=== PATIENT | female | born 1995 | race African-American/Black ===

== ENCOUNTER 2018-09-25 11:41 | Inpatient (IN) | payer OTHER ==
[~2018-09-25] VITALS: Ht 165.1 cm; Wt 63.5 kg
[~2018-09-25 11:41] MED LIST: ALPR0.5T2 PO; DOCU-299 PO; GABA300C PO; HYDR200T5 PO; HYDR2TAB6 PO; LABE300T5 PO; LACT10CA1 PO; LOV40I SUBQ; NITR100C7 PO; PRED20TA5 PO; VANC125C11 PO
--- NOTE | 2018-09-25 11:41 | NUR ---
PT FAUSTO PENG, CURRENTLY AWAITING BED
--- NOTE | 2018-09-25 11:45 | NUR ---
PT TAKEN TO BED 9 BY EMS CREW
[2018-09-25 11:54] VITALS: BP 144/95
[2018-09-25] MEDS ORDERED: NACL 0.9% 1,000 ML IV SCH ×2 (12:23→18:35)
[2018-09-25] MEDS ORDERED: fentaNYL 0.05 MG/ML VIAL IVP ONE (12:25)
--- NOTE | 2018-09-25 13:04 | NUR ---
PT BIBA FOR ABD PAIN AND GENERALIZED JOINT PAIN. PT HX OF FIBROMYALGIA, SICKLE CELL, LUPUS. PT STATES SHE HAS NOT BEEN EATING OF DRINKING BECAUSE OF THE PAIN. PAIN 10/10, GENERALIZED. VSS; PATIENT POSITIONED FOR COMFORT; HOB ELEVATED; BEDRAILS UP X1; BED DOWN. ER MD MADE AWARE OF PT STATUS.
[2018-09-25] MEDS ORDERED: HYDROmorphone PFS 2 MG/ML SYR IVP ONE ×2 (13:20→14:40)
[2018-09-25 13:50] VITALS: BP 127/80
--- NOTE | 2018-09-25 13:50 | NUR ---
RECEIVED REPORT FROM ER NURSE. PT IS ALERTED AND ORIENTED X4. NO SIGNS OF DISTRESS NOTED. DENIED PAIN AT THIS MOMENT. C/O COLD. WARM BLANKETS PROVIDED.RESPIRATION IS EVEN AND UNLABORED. IV IS ON L FOOT 24G INFUSING PER MD ORDER. IV SITE IS CLEAN AND DRY. ABLE TO AMBULATE WITH STEADY GAIT. VITAL SIGN TAKEN AND COLLECTED MRSA NARES SWAP.ORIENTED PT TO THE ROOM, HOW TO USE THE CALL LIGHT FOR ASSISTANCE, TV, BED, BATHROOM AND LIGHT. DISCUSSED PLAN OF CARE WITH PT, PT VERBALIZED UNDERSTANDING. SAFETY MEASURES IN PLACE. BED IN LOW POSITION, CALL LIGHT WITHIN REACH.
--- NOTE | 2018-09-25 14:00 | NUR ---
PT DECLINING XRAY AND LABS; TOO MUCH PAIN
[2018-09-25 14:11] LABS: BILIRUBIN,URINE NEGATIVE (NEGATIVE); BLOOD, URINE TRACE-I (NEGATIVE); COLOR,URINE YELLOW (YELLOW); LEUKOCYTE ESTERASE ,URINE TRACE (NEGATIVE); NITRITE, URINE NEGATIVE (NEGATIVE); PH,URINE 6.5 (5.0-9.0); UGLUCOSE NEGATIVE (NEGATIVE)
[2018-09-25 14:12] LABS: APPEARANCE,URINE SLIGHTLY CLOUDY (CLEAR)
[2018-09-25 14:12] LABS: BASOPHILS % (AUTO) 1.3 % (0.0-2.0); EOSINOPHILS % (AUTO) 0.1 % (0.0-4.0); HEMATOCRIT 29.9 % (36-48); HEMOGLOBIN 9.6 g/dL (12.0-16.0); LYMPHOCYTES # (AUTO) 0.8 K/uL (2.5-16.5); LYMPHOCYTES % (AUTO) 21.7 % (20.5-51.1); MEAN CORPUSCULAR HEMOGLOBIN 22 pg (27-31); MEAN CORPUSCULAR HGB CONC 32 g/dL (33-37); MEAN CORPUSCULAR VOLUME 69.5 fL (80-94); MONOCYTES # (AUTO) 0.5 K/uL (0.8-1.0); MONOCYTES % (AUTO) 13.7 % (1.7-9.3); NEUTROPHILS # (AUTO) 2.2 K/uL (1.8-7.7); NEUTROPHILS % (AUTO) 63.2 % (42.2-75.2); PLATELET COUNT (AUTO) 361 K/uL (140-450); RED CELL DISTRIBUTION WIDTH 19.8 % (11.6-13.7); WHITE BLOOD COUNT (AUTO) 3.5 K/uL (4.8-10.8)
[2018-09-25] MEDS ORDERED: LEVOFLOXACIN 500 MG/D5W PREMIX 100 ML IV ONE (14:15)
[2018-09-25] MEDS ORDERED: PIPERACILLIN/TAZOBACTAM 3.375 GM in DEXTROSE 5% 50 ML IV ONE (14:15)
[2018-09-25 14:19] LABS: ANION GAP 15.4 (8-16); CARBON DIOXIDE 23.9 mmol/L (21-32); CREATININE 0.6 mg/dL (0.6-1.3); POTASSIUM 3.3 mmol/L (3.5-5.1)
[2018-09-25 14:22] LABS: RBC,URINE 3-10 (FEW) /HPF (0-5); WBC,URINE 6-15 (FEW) /HPF (0-5)
[2018-09-25 14:24] LABS: PROTHROMBIN TIME 10.4 secs (10.8-13.4)
[2018-09-25 14:25] LABS: ALBUMIN 3.1 g/dL (3.4-5.0); TOTAL BILIRUBIN 0.1 mg/dL (0.0-1.0)
[2018-09-25] MEDS ORDERED: PIPERACILLIN/TAZOBACTAM 3.375 GM VIAL IV ONE (14:37)
[2018-09-25] MEDS ORDERED: ONDANSETRON 4 MG/2 ML VIAL IM/IVP PRN (15:05)
[2018-09-25] MEDS ORDERED: DOCUSATE SODIUM 100 MG GELCAP PO PRN (15:05)
[2018-09-25] MEDS ORDERED: HYDROcodone/APAP 7.5/325 MG 1 TAB PO PRN (15:05)
[2018-09-25] MEDS ORDERED: ACETAMINOPHEN 325 MG TAB PO PRN (15:05)
--- NOTE | 2018-09-25 15:41 | NUR ---
PT TAKEN TO TELE OBS FLOOR BY RN JOSE AND EMT MABEL
--- NOTE | 2018-09-25 15:45 | NUR ---
Patient will be admitted to care of DR. BOGGS. Admited to TELE. Will go to room 125B. Belongings list completed. Report to ONELIA SANDHU.
[2018-09-25 16:12] LABS: BARBITURATE, URINE NEG. ng/ml (NEG <=200); BENZODIAZEPINE, URINE NEG. ng/mL (NEG <=200); CANNABINOID, URINE POS. ng/mL (NEG <=50); COCAINE, URINE NEG. ng/mL (NEG <=300); OPIATE, URINE POS. ng/mL (NEG <=2000); PHENCYCLIDINE SCREEN,URINE NEG. ng/mL (NEG <=25)
[2018-09-25 16:15] LABS: CHOL/HDL RATIO 5.2 (1-4.5); FREE T4 (FREE THYROXINE) 0.94 ng/dL (0.76-1.46); MAGNESIUM 1.9 mg/dL (1.8-2.4); PHOSPHORUS 4.2 mg/dL (2.5-4.9); THYROID STIMULATING HORMONE 3.44 uIU/mL (0.34-3.74)
[2018-09-25] MEDS ORDERED: ALPR0.5T2 PO (16:36)
[2018-09-25] MEDS ORDERED: GABA300C PO (16:39)
[2018-09-25] MEDS ORDERED: DOCU-299 PO (16:39)
[2018-09-25] MEDS ORDERED: LOV40I SUBQ (16:39)
[2018-09-25] MEDS ORDERED: HYDR2TAB6 PO (16:40)
[2018-09-25] MEDS ORDERED: LABE300T5 PO (16:42)
[2018-09-25] MEDS ORDERED: PRED20TA5 PO (16:43)
[2018-09-25] MEDS: NACL 0.9% 1,000 ML IV SCH (17:05)
[2018-09-25] MEDS ORDERED: ALPRAZolam 0.5 MG TAB PO SCH (17:10)
--- NOTE | 2018-09-25 17:25 | NUR ---
IV ON L FOOT INFILTRATED. D/C IV, IV CANNULA INTACT AND COMPLETED, MINIMAL BLEEDING AT IV SITE. TAPED WITH DRY GAUZE. RESTARTED A NEW IV ON R BREAST 24G. IV IS PATENT AND ASYMPTOMATIC, INFUSING PER MD ORDER. PT TOLERATED WELL.
[2018-09-25] MEDS ORDERED: HYDR200T5 PO (17:41)
[2018-09-25] MEDS ORDERED: HYDROmorphone PFS 2 MG/ML SYR IVP PRN (17:50)
[2018-09-25] MEDS ORDERED: KCL 20 MEQ/WATER INJ PREMIX 100 ML IV SCH (18:30)
--- NOTE | 2018-09-25 19:08 | NUR ---
ADMINISTERED 1000ML NS BOLUS PER MD ORDER.
--- NOTE | 2018-09-25 19:30 | NUR ---
BEDSIDE REPORT GIVEN TO SHIP CAPTAIN NURSE FOR CONTINUITY OF CARE. PT IS IN STABLE CONDITION.
--- NOTE | 2018-09-25 19:31 | NUR ---
REPORT RECEIVED FROM AM NURSE AT BEDSIDE. PT IN STABLE CONDITION. AAOX4. INTRODUCED SELF TO PT. BOARD UPDATED. NO COMPLAINTS OF PAIN DUE TO ALREADY BEING MEDICATED. NO SOB. AFEBRILE. IV SITE R BREAST 24G RUNNING NS@150ML/HR PATENT AND INTACT. SKIN WARM, DRY, AND INTACT WITH NO OPEN WOUNDS. BED LOCKED IN LOW POSITION. CALL HAN WITHIN REACH. SAFETY PRECAUTIONS IN PLACE. ALL NEEDS MET AT THIS TIME.
[2018-09-25] MEDS: HYDROmorphone PFS 2 MG/ML SYR IVP PRN ×2 (19:39→23:32)
[2018-09-25 20:00] VITALS: BP 119/69
[2018-09-25] MEDS ORDERED: methylPREDNISolone SS 125 MG/2 ML VIAL IVP SCH (20:00)
--- NOTE | 2018-09-25 20:20 | NUR ---
PT COMPLAINS HER SEROQUEL IS NOT BEING GIVEN. SHE SAID SHE NORMALLY TAKES SEROQUEL WITH DILAUDID AND XANAX TOGETHER. NOTIFIED. ORDERS THAT DILAUDID AND XANAX CANNOT BE GIVEN TOGETHER. DILAUDID CAN BE GIVEN WITH SEROQUEL.
[2018-09-25] MEDS ORDERED: cefTRIAXone 1,000 MG VIAL ONE (20:32)
[2018-09-25] MEDS: METOPROLOL 25 MG TAB PO SCH (20:37)
--- NOTE | 2018-09-25 20:37 | NUR ---
LOPRESSOR GIVEN PO. SOLUMEDROL GIVEN IVP. ROCEPHIN GIVEN IVPB. PT TOLERATED WELL. Addendum: 09/26/18 at 0251 by Fernando Franco RN SEROQUEL WAS OPENED AND ATTEMPTED TO GIVEN TO PT. SHE SAID SHE WILL WAIT UNTIL DILAUDID IS DUE AGAIN THEN SHE WILL TAKE SEROQUEL. WILL HOLD SEROQUEL UNTIL 2329 WHEN DILAUDID IS DUE.
[2018-09-25] MEDS: QUEtiapine FUMARATE 100 MG TAB PO SCH ×2 (20:38→23:32)
--- NOTE | 2018-09-25 21:16 | NUR ---
XANAX GIVEN PO. PT TOLERATED WELL. Addendum: 09/26/18 at 0247 by Fernando Franco RN POTASSIUM GIVEN AT 2116. NOT XANAX CANDELARIA-ONELIA.
--- NOTE | 2018-09-25 21:16 | NUR ---
POTASSIUM DUE AT 183. OTHER IV STILL INFUSING. POTASSIUM LEVEL 3.3. POTASSIUM HUNG AT 2115. PT TOLERATING WELL.
[2018-09-25] MEDS: ALPRAZolam 0.5 MG TAB PO PRN (22:20)
--- NOTE | 2018-09-25 22:20 | NUR ---
XANAX GIVEN PO. PT TOLERATED WELL.
--- NOTE | 2018-09-25 23:32 | NUR ---
DILAUDID GIVEN IVP. SEROQUEL GIVEN PO. PT TOLERATED WELL.
[2018-09-26] VITALS: BP 136/93
--- NOTE | 2018-09-26 01:30 | NUR ---
PT COMPLAINS OF ITCHINESS. MD NOTIFIED. ORDERED BENADRYL PO.
--- NOTE | 2018-09-26 01:35 | NUR ---
PT COMPLAINS THAT BENADRYL PO DOES NOT WORK. WANTS BENADRYL IV. MD NOTIFIED. IN TO SPEAK WITH PATIENT.
--- NOTE | 2018-09-26 01:50 | NUR ---
ORDERED TARUN COLBY.
--- NOTE | 2018-09-26 01:54 | NUR ---
BENADRYL GIVEN IVP ONCE. PT TOLERATED WELL.
[2018-09-26] MEDS ORDERED: methylPREDNISolone SS 125 MG/2 ML VIAL IVP SCH (02:00)
[2018-09-26] MEDS ORDERED: diphenhydrAMINE 50 MG/ML VIAL IVP SCH ×2 (02:00→08:20)
[2018-09-26] MEDS: NACL 0.9% 1,000 ML IV SCH ×4 (03:31→18:38)
[2018-09-26] MEDS: HYDROmorphone PFS 2 MG/ML SYR IVP PRN ×6 (03:32→21:26)
--- NOTE | 2018-09-26 03:32 | NUR ---
DILAUDID GIVEN FOR 10/10 PAIN. PT TOLERATED WELL.
[2018-09-26 04:00] VITALS: BP 151/99
[2018-09-26] MEDS: methylPREDNISolone SS 125 MG/2 ML VIAL IVP SCH ×2 (04:29→12:00)
--- NOTE | 2018-09-26 04:29 | NUR ---
SOLUMEDROL GIVEN IVP. PT TOLERATED WELL.
--- NOTE | 2018-09-26 05:30 | NUR ---
PT COMPLAINING ABOUT PAIN. DILAUDID GIVEN AT 0332. ASKED IF SHE COULD GET IT EARLIER. MD DENIED HER AT 0100 TO RECEIVE DILAUDID EARLIER THAN SCHEDULE.
--- NOTE | 2018-09-26 07:31 | NUR ---
REPORT GIVEN TO AM NURSE AT BEDSIDE. PT IN STABLE CONDITION.
--- NOTE | 2018-09-26 07:35 | NUR ---
RECEIVED PT FROM DISPATCHER RADIO NURSEALEXX, PT IS AWAKE AND SEATED ON THE BED WITH SIDE RAILS UP AND CALL LIGHT WITHIN REACH, PT VERBALIZED A PAIN RATE OF 9/10 AND WILL MEDICATE SOON DUE FOR PAIN MEDICATION. PT HAS AN IV FREDO ON THE RT BREAST G.24 WITH NS INFUSING AT 150ML/HR, INTACT. NO SOB NOTED AND WILL CONTINUE TO MONITOR PT.
[2018-09-26 08:00] VITALS: BP 158/110
--- NOTE | 2018-09-26 08:04 | NUR ---
PT IS AWAKE AND SEATED ON THE BED, PAIN MEDICATION GIVEN VIA IV PUSH AND PT TOLERATED IT, VITAL SIGNS CHECKED PER PARAMETERS. WILL MONITOR PT.
[2018-09-26 08:17] LABS: ANION GAP 9.7 (8-16); BASOPHILS % (AUTO) 0.3 % (0.0-2.0); CARBON DIOXIDE 22.6 mmol/L (21-32); CREATININE 0.5 mg/dL (0.6-1.3); HEMATOCRIT 29.3 % (36-48); HEMOGLOBIN 9.5 g/dL (12.0-16.0); LYMPHOCYTES # (AUTO) 0.3 K/uL (2.5-16.5); MEAN CORPUSCULAR HEMOGLOBIN 23 pg (27-31); MEAN CORPUSCULAR HGB CONC 32 g/dL (33-37); MONOCYTES # (AUTO) 0.1 K/uL (0.8-1.0); MONOCYTES % (AUTO) 2.5 % (1.7-9.3); NEUTROPHILS # (AUTO) 3.5 K/uL (1.8-7.7); PLATELET COUNT (AUTO) 364 K/uL (140-450); POTASSIUM 4.3 mmol/L (3.5-5.1); RED BLOOD CELL COUNT(AUTO) 4.19 MIL/uL (4.20-5.40); RED CELL DISTRIBUTION WIDTH 19.6 % (11.6-13.7); WHITE BLOOD COUNT (AUTO) 3.9 K/uL (4.8-10.8)
[2018-09-26] MEDS: predniSONE 20 MG TAB PO SCH (08:17)
[2018-09-26] MEDS: METOPROLOL 25 MG TAB PO SCH ×2 (08:18→20:43)
[2018-09-26] MEDS: GABAPENTIN 300 MG CAP PO SCH ×3 (08:18→16:34)
[2018-09-26] MEDS: HYDROXYCHLOROQUINE 200 MG TAB PO SCH (08:18)
[2018-09-26] MEDS: ENOXAPARIN 40 MG/0.4 ML SYR SUBQ SCH (08:20)
[2018-09-26 08:45] LABS: NEUTROPHILS % (AUTO) 89.6 % (42.2-75.2)
[2018-09-26 08:46] LABS: LYMPHOCYTES % (AUTO) 7.6 % (20.5-51.1)
--- NOTE | 2018-09-26 10:11 | NUR ---
PT IS AWAKE AND SEATED ON THE BED WATCHING TV, BENADRYL WAS GIVEN IV PUSH AND PT TOLERATED IT. NO SIGN OF DISTRESS NOTED AND WILL CONTINUE TO MONITOR PT.
[2018-09-26 12:00] VITALS: BP 157/117
--- NOTE | 2018-09-26 12:20 | NUR ---
PT IS AWAKE AND VITAL SIGN TAKEN AND BP IS 175/113, PULSE IS 96, O2 SATURATION IS 96% AND RESPIRATION IS 16/MIN. DR. YOO WAS INFORMED OF THE BP RESULT AND MD SAID TO RE-CHECK BP AFTER AN HOUR. PT WAS MEDICATED FOR THE PAIN RATE OF 9/10 AND PORAL AND IV MEDICATIONS WE5RE GIVEN AND PT TOLERATED IT. WILL CONTINUE TO MONITOR PT.
[2018-09-26] MEDS: ALPRAZolam 0.5 MG TAB PO PRN ×2 (14:05→20:43)
--- NOTE | 2018-09-26 14:07 | NUR ---
PT VERBALIZED A FEELING OF ANXIETY AND ASKED FOR A MEDICATION TO CALM HER DOWN, MEDICATION GIVEN TO PT AND PT TOLERATED IT. WILL CONTINUE TO MONITOR PT.
--- NOTE | 2018-09-26 15:45 | NUR ---
IV LINE WAS INFILTRATED AND A NEW IV LINE WAS STARTED ON RT FOOT G. 22.
[2018-09-26 16:00] VITALS: BP 159/120
--- NOTE | 2018-09-26 16:03 | NUR ---
PT VERBALIZED A PAIN RAT E OF 04/19 AND PAIN MEDICATION WAS GIVEN VIA IV PUSH AND PT TOLERATED IT, V/S CHECKED PRIOR TO MEDICATION ADMINISTRATION
--- NOTE | 2018-09-26 16:10 | NUR ---
X-RAY OF THE BILATERAL KNEES IS BEING DONE TO PT NOW.
--- NOTE | 2018-09-26 16:35 | NUR ---
PT IS AWAKE AND SEATED ON THE BED, AL MEDICATION GIVEN AND PT TOLERATED IT. WILL MONITOR PT.
[2018-09-26] MEDS ORDERED: methylPREDNISolone SS 40 MG/ML VIAL IVP SCH (18:00)
--- NOTE | 2018-09-26 19:25 | NUR ---
ENDORSED PT TO SOCIALLY RESPONSIBLE INVESTMENT ADVISER NURSEALEXX FOR CONTINUITY OF CARE, PT IS STABLE AT THIS TIME.
--- NOTE | 2018-09-26 19:26 | NUR ---
REPORT RECEIVED FROM AM NURSE AT BEDSIDE. PT IN STABLE CONDITION. AAOX4. INTRODUCED SELF TO PT. BOARD UPDATED. NO COMPLAINTS OF PAIN. NO SOB. AFEBRILE. IV SITE R BREAST 24G RUNNING NS@150ML/HR PATENT AND INTACT. SKIN WARM, DRY, AND INTACT WITH NO OPEN WOUNDS. BED LOCKED IN LOW POSITION. CALL HAN WITHIN REACH. SAFETY PRECAUTIONS IN PLACE. ALL NEEDS MET AT THIS TIME.
[2018-09-26 20:00] VITALS: BP 159/109
[2018-09-26] MEDS ORDERED: cefTRIAXone 1,000 MG VIAL ONE (20:37)
--- NOTE | 2018-09-26 20:41 | NUR ---
ROCEPHIN HUNG AND RUNNING. METOPROLOL AND XANAX GIVEN PO. SOLUMEDROL AND BENADRYL GIVEN IVP. PT TOLERATED WELL.
[2018-09-26] MEDS: methylPREDNISolone SS 40 MG/ML VIAL IVP SCH (20:42)
[2018-09-26] MEDS: diphenhydrAMINE 50 MG/ML VIAL IVP PRN (20:43)
[2018-09-26] MEDS: QUEtiapine FUMARATE 100 MG TAB PO SCH (21:25)
--- NOTE | 2018-09-26 21:25 | NUR ---
DILAUDID GIVEN FOR 10/10 JOINT PAIN. SEROQUEL GIVEN PO. PT TOLERATED WELL.
--- NOTE | 2018-09-26 23:00 | NUR ---
PT SLEEPING SITTING UP. NO S/S OF DISTRESS NOTED. WILL CONTINUE TO MONITOR.
[2018-09-27] VITALS: BP 150/107
[2018-09-27] MEDS: HYDROmorphone PFS 2 MG/ML SYR IVP PRN ×5 (00:18→21:45)
--- NOTE | 2018-09-27 00:18 | NUR ---
DILAUDID GIVEN IVP. PT TOLERATED WELL.
--- NOTE | 2018-09-27 01:30 | NUR ---
PT SLEEPING COMFORTABLY IN BED SITTING UP. NO S/S OF DISTRESS NOTED. WILL CONTINUE TO MONITOR.
[2018-09-27] MEDS: NACL 0.9% 1,000 ML IV SCH ×4 (03:04→21:18)
[2018-09-27] MEDS: diphenhydrAMINE 50 MG/ML VIAL IVP PRN ×3 (03:05→15:48)
--- NOTE | 2018-09-27 03:05 | NUR ---
BENADRYL GIVEN IVP FOR ITCHINESS. PT TOLERATED WELL.
[2018-09-27 04:00] VITALS: BP 145/99
[2018-09-27] MEDS: methylPREDNISolone SS 40 MG/ML VIAL IVP SCH ×2 (04:08→13:02)
--- NOTE | 2018-09-27 04:08 | NUR ---
SOLUMEDROL AND DILAUDID GIVEN IVP. PT TOLERATED WELL.
--- NOTE | 2018-09-27 07:20 | NUR ---
RECEIVED PT REPORT FROM MANAGER GROUP HOME NURSE AT BEDSIDE. PT IS AAOX4. C/O JOINTS PAIN. WILL MEDICATE. NO S/S RESPIRATORY DISTRESS. AFEBRILE. IV SITE R FOOT 22G RUNNING NS AT 150ML/HR, PATENT AND INTACT. SKIN WARM, DRY, AND INTACT. BED LOCKED IN LOWEST POSITION. CALL LIGHT WITHIN REACH. SAFETY PRECAUTIONS IN PLACE.
[2018-09-27 07:47] LABS: BASOPHILS % (AUTO) 0.7 % (0.0-2.0); HEMATOCRIT 34.6 % (36-48); LYMPHOCYTES # (AUTO) 0.5 K/uL (2.5-16.5); LYMPHOCYTES % (AUTO) 9.7 % (20.5-51.1); MEAN CORPUSCULAR HEMOGLOBIN 23 pg (27-31); MEAN CORPUSCULAR HGB CONC 32 g/dL (33-37); MEAN CORPUSCULAR VOLUME 71.2 fL (80-94); MONOCYTES # (AUTO) 0.3 K/uL (0.8-1.0); MONOCYTES % (AUTO) 5.8 % (1.7-9.3); NEUTROPHILS # (AUTO) 4.3 K/uL (1.8-7.7); NEUTROPHILS % (AUTO) 83.8 % (42.2-75.2); PLATELET COUNT (AUTO) 409 K/uL (140-450); RED BLOOD CELL COUNT(AUTO) 4.86 MIL/uL (4.20-5.40); RED CELL DISTRIBUTION WIDTH 19.5 % (11.6-13.7); WHITE BLOOD COUNT (AUTO) 5.1 K/uL (4.8-10.8)
[2018-09-27 08:00] VITALS: BP 171/111
--- NOTE | 2018-09-27 08:10 | NUR ---
MADE DR GLORIA AWARE, PT'S BP 171/111, HR 85. WILL GIVE PT METOPROLOL SCHEDULED FOR AM. ASKED IF THERE IS ADDITIONAL BP MEDS NEEDED. DR GLORIA STATED WILL NOTIFY DR CORTEZ AND LET ME KNOW.
[2018-09-27 08:13] LABS: T4 (THYROXINE) 6.6 ug/dL (4.5-12.0)
--- NOTE | 2018-09-27 08:30 | NUR ---
PATIENT HAS BEEN SCREENED AND CATEGORIZED HIGH NUTRITION RISK. PATIENT WILL BE SEEN WITHIN 1-2 DAYS OF ADMISSION. 09/27/[address]
[2018-09-27 08:32] LABS: ANION GAP 11.9 (8-16); CARBON DIOXIDE 25.8 mmol/L (21-32); CREATININE 0.7 mg/dL (0.6-1.3); POTASSIUM 3.7 mmol/L (3.5-5.1)
[2018-09-27] MEDS: ENOXAPARIN 40 MG/0.4 ML SYR SUBQ SCH (08:33)
[2018-09-27] MEDS: HYDROXYCHLOROQUINE 200 MG TAB PO SCH (08:33)
[2018-09-27] MEDS: predniSONE 20 MG TAB PO SCH (08:34)
[2018-09-27] MEDS: GABAPENTIN 300 MG CAP PO SCH ×3 (08:34→17:52)
[2018-09-27] MEDS: METOPROLOL 25 MG TAB PO SCH ×2 (08:34→21:43)
[2018-09-27] MEDS ORDERED: CLINICAL MONITORING MC SCH (09:00)
[2018-09-27] MEDS ORDERED: HYDROmorphone PFS 2 MG/ML SYR IVP PRN (11:15)
[2018-09-27 12:00] VITALS: BP 173/102
--- NOTE | 2018-09-27 12:50 | NUR ---
MADE DR RONDON AWARE, PT'S BP 173/102 HR 92, DR RONDON STATED HE WILL TEXT DR CORTEZ.
[2018-09-27] MEDS: ALPRAZolam 0.5 MG TAB PO PRN (14:29)
--- NOTE | 2018-09-27 14:30 | NUR ---
PT C/O JOINT PAIN, NOT HAPPY WITH THE CHANGE IN FREQ OF HER DILAUDID. TOLD PT TO TRY NORCO IN BETWEEN THE DILAUDID, PT AGREES AT THIS TIME. MEDICATED PT WITH NORCO FOR PAIN AND XANAX FOR ANXIETY.
--- NOTE | 2018-09-27 15:55 | NUR ---
BP 172/120, HR 98, NOTIFIED DR GOODWIN, PT C/O BACK PAIN AND JOINT PAIN. NORCO AND XANAX WAS GIVEN ABOUT ONE HOUR AGO. DR SAID OK TO GIVE DILAUDID NOW WHICH IS ALMOST DUE AT 1644.
[2018-09-27 16:00] VITALS: BP_SYST 172; BP_DIAS 118; BP_DIAS 120
--- NOTE | 2018-09-27 16:10 | NUR ---
PT CRYING STATING 1MG IV DILAUDID IS NOT ENOUGH. CHECKED WITH PT'S PHARMACY, HOME RX FOR DILAUDID WAS 4MG Q4H PO PRN. MADE DR RONDON AWARE. Addendum: 09/28/18 at 0815 by Samuel Newsome RN OFFERED HEATING BACK FOR BACK JOINT PAIN, PT REFUSED, SAYING IT WONT WORK. PT REFUSED TO GIVE IT A TRY.
[2018-09-27] MEDS ORDERED: HYDROmorphone 1 MG/ML AMP IVP SCH (16:35)
--- NOTE | 2018-09-27 18:28 | NUR ---
PT EATING DINNER INDEPENDENTLY, NO S/S OF ACUTE DISTRESS.
--- NOTE | 2018-09-27 19:38 | NUR ---
ENDORSE PT TO MOLTEN IRON POURER RN. PT IN STABLE CONDITION.
--- NOTE | 2018-09-27 19:55 | NUR ---
RECEIVED REPORT FROM DAYSHIFT NURSE FOR CONTINUITY OF CARE. PATIENT IS AWAKE, ALERT, RESPIRATION EVEN UNLABORED ON ROOM AIR. COMPLAIN OF GENERALIZED PAIN. SKIN IS WARM AND DRY. IV PATENT AND INTACT. PLAN OF CARE WAS DISCUSSED. BED IS AT LOW POSITION. CALL LIGHT WITHIN REACH.
[2018-09-27 20:00] VITALS: BP 181/125
--- NOTE | 2018-09-27 20:35 | NUR ---
NOTIFIED REGARDING BP 181/125. PATIENT WAS UPSET AND IN PAIN WANTS HER PAIN MEDS TO BE CHANGED FOR Q4H INSTEAD OF Q6H. SAID JUST CONTINUE TO MONITOR.
--- NOTE | 2018-09-27 21:37 | NUR ---
PATIENT SCREAMING BECAUSE SHE WOULDN'T TAKE PO BENADRYL. SHE WANTS TO TAKE IV BENADRYL. TALKED TO DR. VIEYRA ABOUT THE SITUATION. STATED PATIENT IS ONLY TAKING PO BENADRYL. EDUCATED THE PATIENT REGARDING IV BENADRYL THAT IS MORE TOXIC TO THE BODY. PATIENT STILL SCREAMING.
[2018-09-27] MEDS: QUEtiapine FUMARATE 100 MG TAB PO SCH (21:43)
[2018-09-28] VITALS: BP 168/112
--- NOTE | 2018-09-28 | NUR ---
PATIENT IS SLEEPING COMFORTABLY RESPIRATION EVEN UNLABORED ON ROOM AIR. NO DISTRESS NOTED. CALL LIGHT WITHIN REACH. BED IS AT LOW POSITION.
[2018-09-28] MEDS: HYDROmorphone PFS 2 MG/ML SYR IVP PRN (03:17)
[2018-09-28 04:00] VITALS: BP 177/120
--- NOTE | 2018-09-28 05:00 | NUR ---
NOTIFIED DR. VIEYRA REGARDING PATIENT HIGH BP 177/120. STATED ITS OKAY TO ADMINISTER LOPRESSOR THAT IS DUE FOR 9AM NOW. WILL CONTINUE TO MONITOR.
[2018-09-28] MEDS: METOPROLOL 25 MG TAB PO SCH (05:05)
[2018-09-28] MEDS: NACL 0.9% 1,000 ML IV SCH (05:47)
[2018-09-28] MEDS ORDERED: HYDROmorphone PFS 2 MG/ML SYR IVP PRN (07:10)
--- NOTE | 2018-09-28 07:13 | NUR ---
ENDORSED PATIENT TO DAY SHIFT NURSE FOR CONTINUITY OF CARE. PATIENT IS STABLE AT THIS TIME.
--- NOTE | 2018-09-28 07:30 | NUR ---
RECEIVED PT REPORT FROM CHANGE MANAGEMENT EXPERT NURSE AT BEDSIDE. PT IS AAOX4. C/O JOINTS PAIN, 05/19. WILL MEDICATE. NO S/S RESPIRATORY DISTRESS. AFEBRILE. IV SITE R FOOT 22G RUNNING NS AT 80ML/HR, PATENT AND INTACT. SKIN WARM, DRY, AND INTACT. BED LOCKED IN LOWEST POSITION. CALL LIGHT WITHIN REACH. SAFETY PRECAUTIONS IN PLACE.
[2018-09-28 08:00] VITALS: BP 146/102
[2018-09-28] MEDS ORDERED: HYDROmorphone 2 MG TAB PO PRN (08:20)
--- NOTE | 2018-09-28 08:20 | NUR ---
DR DANA HERNANDEZ, REPORTED BP 146/102, HR 93, DR NARVAEZ TO GIVE CLONIDINE 0.1MG AT THIS TIME.
[2018-09-28] MEDS ORDERED: HYDR2TAB6 PO (08:25)
[2018-09-28] MEDS ORDERED: ALPR0.5T2 PO (08:25)
[2018-09-28] MEDS ORDERED: QUET100T44 PO (08:25)
[2018-09-28] MEDS: GABAPENTIN 300 MG CAP PO SCH ×2 (08:40→13:00)
[2018-09-28] MEDS: predniSONE 20 MG TAB PO SCH (08:41)
[2018-09-28] MEDS: HYDROXYCHLOROQUINE 200 MG TAB PO SCH (08:41)
[2018-09-28] MEDS: cloNIDine 0.1 MG TAB PO PRN ×2 (08:45→13:42)
[2018-09-28] MEDS ORDERED: ENOXAPARIN 100 MG/ML SYR SUBQ SCH (09:00)
[2018-09-28] MEDS ORDERED: HYDROCHLOROTHIAZIDE 25 MG TAB PO SCH (09:00)
[2018-09-28] MEDS: ALPRAZolam 0.5 MG TAB PO PRN (11:17)
--- NOTE | 2018-09-28 11:30 | NUR ---
PT IN STABLE CONDITION. DISCHARGE INSTRUCTIONS AND MEDICATION TEACHING PROVIDED. PT VERBALIZED UNDERSTANDING. DISCHARGE PAPER SIGNED BY PT. PT WANTS TO WAIT FOR HER SISTER TO PICK HER UP. NOTIFIED CHARGE AND HIGHWAY TECHNICIAN. OK FOR PT TO STAY, ONLY PO MEDICATION WILL BE GIVEN. IV CATH DC'D, TIP INTACT, PRESSURE APPLIED.
[2018-09-28 13:00] VITALS: BP 173/110
[2018-09-28 16:00] VITALS: BP 148/103
--- NOTE | 2018-09-28 16:50 | NUR ---
PT RETURNED TELE BOX TO NURSING STATION, REMOVED PT'S WRIST BAND. WALKED WITH PT TO [facility]. NO S/S OF ACUTE DISTRESS NOTED. PT TOOK ALL HER BELONGINGS INCLUDING RX AND DISCHARGE PAPER. Addendum: 09/28/18 at 1737 by Samuel Newsome RN OFFERED PT WHEELCHAIR, PT REFUSED. PT HAS STEADY GAIT. NO S/S OF DISTRESS.
== END 2018-09-28 16:50 | disposition home or self-care (01) | DRG 662 ==
LOC: MED 11:41 → MMU 15:20 → OBSVTOIN 09-27 10:50
PROVIDERS: ADMIT General Practice; ATTEND General Practice
DX: D57.00 Hb-SS disease with crisis, unspecified (principal); N17.0 Acute kidney failure with tubular necrosis; M32.9 Systemic lupus erythematosus, unspecified; G62.9 Polyneuropathy, unspecified; E44.1 Mild protein-calorie malnutrition; N39.0 Urinary tract infection, site not specified; I10 Essential (primary) hypertension; E87.6 Hypokalemia; E78.5 Hyperlipidemia, unspecified; F41.9 Anxiety disorder, unspecified; F32.9 Major depressive disorder, single episode, unspecified; J45.909 Unspecified asthma, uncomplicated; M06.9 Rheumatoid arthritis, unspecified; M79.7 Fibromyalgia; Z88.1 Allergy status to other antibiotic agents; Z88.0 Allergy status to penicillin; Z68.23 Body mass index [BMI] 23.0-23.9, adult; Z88.5 Allergy status to narcotic agent; Z88.8 Allergy status to other drugs, medicaments and biological substances; Z86.711 Personal history of pulmonary embolism
CPT/HCPCS: 96365; 96375; 96376; 99285; G0378; 36415; 71045; 73560; 80048; 80053; 80305; 81001; 82150; 83036; 83605; 83690; 83735; 83880; 84100; 84436; 84439; 84443; 84479; 84484; 85007; 85025; 85610; 85730; 87040; 87081; 87086; 93005; J0696; J1170; J1200; J1650; J1956; J2543; J2920; J2930; J3010; J3480; J7030; J7060; J7512; Q0092; Q0163

== ENCOUNTER 2018-10-10 09:39 | Inpatient (IN) | payer OTHER ==
[~2018-10-10] VITALS: Ht 152.4 cm; Wt 69.9 kg
--- NOTE | 2018-10-10 04:45 | NUR ---
PT C/O 10/ PAIN AND WAS GIVEN IVP DILAUDID. V/S FOLLOWS T 97.0 P 106 R 18 B/P 154/91 02 97% ON ROOM AIR.
[~2018-10-10 09:39] MED LIST changes: +QUET100T44 PO
[2018-10-10 09:45] VITALS: BP 164/101
--- NOTE | 2018-10-10 09:50 | NUR ---
PT AMBULATES TO BED 4
--- NOTE | 2018-10-10 09:55 | NUR ---
22Y/F BIB SELF WITH C/O OF ABDOMINAL PAIN AND JOINT PAIN SINCE YESTERDAY. PAIN SEVERE CONSTANT 05/19. PT IS AAOX4, VSS AT THIS TIME, ACTIVE BS X 4 QUAD, SOFT, LBM; 10/09/18, BED DOWN, BEDRAIL UP X 1, ER MD AWARE AND NOTIFIED OF PT STATUS. HX: SICKLE CELL, FIBROMYALGIA RX: SEE RECONCILE
[2018-10-10] MEDS ORDERED: NACL 0.9% 1,000 ML IV SCH (10:29)
[2018-10-10] MEDS ORDERED: LACTATED RINGERS 1,000 ML IV ONE (10:30)
[2018-10-10] MEDS ORDERED: ALBUTEROL SULFATE/IPRATROPIU 3 ML SOL IH ONE (10:30)
[2018-10-10] MEDS ORDERED: diphenhydrAMINE 50 MG/ML VIAL IVP ONE ×2 (10:45→14:10)
[2018-10-10] MEDS ORDERED: MORPHINE SULFATE 4 MG/ML SYR IM ONE ×3 (10:45→13:00)
[2018-10-10] MEDS ORDERED: PROMETHAZINE 25 MG/ML VIAL IM ONE (10:45)
[2018-10-10] MEDS ORDERED: methylPREDNISolone SS 125 MG/2 ML VIAL IVP ONE (10:45)
--- NOTE | 2018-10-10 10:46 | NUR ---
PT STATES MORPHINE GIVEN WITH BENADRYL SHE HAS NO HISTAMINE EFFECT, FOR EXAMPLE HIVES. MD AT BEDSIDE WHEN SHE EXPLAINED THIS TO US.
--- NOTE | 2018-10-10 10:47 | NUR ---
pt refused abg and tx at this time does not want to be touched dr. camara notified
--- NOTE | 2018-10-10 10:48 | NUR ---
lab at bedside
[2018-10-10 10:49] LABS: BILIRUBIN,URINE NEGATIVE (NEGATIVE); BLOOD, URINE 2+ (NEGATIVE); COLOR,URINE YELLOW (YELLOW); LEUKOCYTE ESTERASE ,URINE NEGATIVE (NEGATIVE); NITRITE, URINE NEGATIVE (NEGATIVE); UGLUCOSE NEGATIVE (NEGATIVE)
--- NOTE | 2018-10-10 10:49 | NUR ---
rt at bedside
[2018-10-10 10:50] LABS: APPEARANCE,URINE SLIGHTLY HAZY (CLEAR)
[2018-10-10 10:55] LABS: BARBITURATE, URINE NEG. ng/ml (NEG <=200); BENZODIAZEPINE, URINE NEG. ng/mL (NEG <=200); CANNABINOID, URINE POS. ng/mL (NEG <=50); COCAINE, URINE NEG. ng/mL (NEG <=300); OPIATE, URINE NEG. ng/mL (NEG <=2000); PHENCYCLIDINE SCREEN,URINE NEG. ng/mL (NEG <=25)
[2018-10-10 11:01] LABS: WBC,URINE 0-5 /HPF (0-5)
--- NOTE | 2018-10-10 11:32 | NUR ---
DR. ROWLAND AWARE OF PT ASKING FOR MORE PAIN MEDICATION
--- NOTE | 2018-10-10 11:43 | NUR ---
SWAB COLLECTED AND GIVEN TO SANKET BARBOSA LADAlexander
--- NOTE | 2018-10-10 12:16 | NUR ---
PT UP IN BED EATING,PT USED DOOR DASH TO ORDER HER FOOD TO GET DELIVER TO ER
--- NOTE | 2018-10-10 12:18 | NUR ---
DR. ROWLAND AWARE FOR PT REQUESTING TO SEE HIM
--- NOTE | 2018-10-10 12:26 | NUR ---
DR. ROWLAND IS IN PT ROOM TALKING TO PT ATTHIS TIME
--- NOTE | 2018-10-10 12:40 | NUR ---
T 97.0 P 106 R 18 B/P 154/91 02 97% . PT C/O 05/19 PAIN AND RECEIVED. IVP PRN DILAUDID FOR PAIN 05/19. WILL MONITOR FOR PAIN.
--- NOTE | 2018-10-10 13:00 | NUR ---
PT IS YELLING IN THE ER
[2018-10-10 13:12] LABS: BASOPHILS % (AUTO) 0.2 % (0.0-2.0); HEMATOCRIT 29.1 % (36-48); HEMOGLOBIN 9.5 g/dL (12.0-16.0); LYMPHOCYTES # (AUTO) 0.4 K/uL (2.5-16.5); LYMPHOCYTES % (AUTO) 4.4 % (20.5-51.1); MEAN CORPUSCULAR HEMOGLOBIN 23 pg (27-31); MEAN CORPUSCULAR HGB CONC 33 g/dL (33-37); MEAN CORPUSCULAR VOLUME 71.6 fL (80-94); MONOCYTES # (AUTO) 0.1 K/uL (0.8-1.0); MONOCYTES % (AUTO) 1.4 % (1.7-9.3); NEUTROPHILS # (AUTO) 8.7 K/uL (1.8-7.7); PLATELET COUNT (AUTO) 361 K/uL (140-450); RED BLOOD CELL COUNT(AUTO) 4.06 MIL/uL (4.20-5.40); RED CELL DISTRIBUTION WIDTH 23.9 % (11.6-13.7); WHITE BLOOD COUNT (AUTO) 9.2 K/uL (4.8-10.8)
[2018-10-10 13:16] LABS: AMYLASE 99 U/L (25-115); LIPASE 77 U/L (73-393); MAGNESIUM 1.7 mg/dL (1.8-2.4)
[2018-10-10 13:19] LABS: CREATININE 0.7 mg/dL (0.6-1.3); PROTHROMBIN TIME 10.3 secs (10.8-13.4)
[2018-10-10 13:25] LABS: ALBUMIN 3.2 g/dL (3.4-5.0); TOTAL BILIRUBIN 0.3 mg/dL (0.0-1.0)
--- NOTE | 2018-10-10 14:04 | NUR ---
PT IS ROWDY AND YESLLING AND SCREAMING IN THE ER, PT'S IN BED 3 AND BED 5 ARE ASKING FOR SOME EAR PLUGS, SECURITY CALLED
[2018-10-10] MEDS ORDERED: DOCUSATE SODIUM 100 MG GELCAP PO PRN (14:40)
[2018-10-10] MEDS ORDERED: HYDROcodone/APAP 5/325 MG 1 TAB TAB PO PRN (14:40)
[2018-10-10] MEDS ORDERED: ACETAMINOPHEN 325 MG TAB PO PRN (14:40)
[2018-10-10] MEDS ORDERED: ZOLPIDEM 5 MG TAB PO PRN (14:40)
[2018-10-10] MEDS ORDERED: ONDANSETRON 4 MG/2 ML VIAL IM/IVP PRN (14:40)
[2018-10-10] MEDS ORDERED: LORazepam 2 MG/ML VIAL IM/IVP PRN ×3 (14:40→15:20)
--- NOTE | 2018-10-10 15:15 | NUR ---
PT TAKEN TO TELE FLOOR BY RN ABEL AND EMT VINNIE
--- NOTE | 2018-10-10 15:15 | NUR ---
Patient will be admitted to care of DR. BOGGS. Admited to TELE FLOOR. Will go to room 105-A. Belongings list completed. Report to ONELIA TRUJILLO.
[2018-10-10] MEDS ORDERED: HEPARIN PER PHARMACY MC PRN (15:30)
[2018-10-10] MEDS ORDERED: HYDROmorphone PFS 2 MG/ML SYR IVP PRN ×2 (15:30→15:55)
[2018-10-10] MEDS ORDERED: hePARIN / DEXT 5% PREMIX 250 ML IV SCH (15:30)
--- NOTE | 2018-10-10 15:30 | NUR ---
RECEIVED REPORT FROM ED RN. PT AMBULATED FROM BED TO [place] WITHOUT ASSIST. SUPERFICIAL SKIN ABRASION OVER RT [place]/LEG FROM PT SCRATCHING. COVERED WITH TEGADERM. PT SCREAMING- C/O 05/19 GENERALIZED BODY PAIN. EXPLAINED THAT WILL ADMIN PAIN MEDICATION WHEN PHARMACY HAS COMPLETED VERIFICATION. PT IS NOT COOPERATIVE RIGHT NOW. REFUSING ASSESSMENT AND PHOTOGRAPH OF RT LEG ABRASION. ALL SAFETY PRECAUTIONS IN PLACE, WILL CONTINUE TO MONITOR.
--- NOTE | 2018-10-10 15:50 | NUR ---
ADMINISTERED DILAUDID IVP FOR PAIN.
[2018-10-10 16:00] VITALS: BP 140/84
--- NOTE | 2018-10-10 16:01 | NUR ---
PT IS MORE COOPERATIVE AND CALM AFTER PAIN MEDICATION. HOWEVER PT IS POOR HISTORIAN. BASED ADMISSION ASSESSMENT FROM MEDICAL RECORD AND PATIENT.
[2018-10-10] MEDS ORDERED: ALPRAZolam 0.5 MG TAB PO PRN (16:10)
--- NOTE | 2018-10-10 16:17 | NUR ---
PER PHARMACY, HEPARIN DRIP TO BE STARTED TOMORROW MORNING, NOT TODAY.
[2018-10-10] MEDS: GABAPENTIN 300 MG CAP PO SCH (16:26)
[2018-10-10] MEDS: SODIUM PHOS / POTASSIUM PHOS 1 PKT PDR PO SCH (16:27)
[2018-10-10] MEDS: DEXT 5% /NACL 0.9% 1,000 ML IV SCH (16:29)
[2018-10-10] MEDS ORDERED: MAG SULF 2000 MG/WATER PREMIX 50 ML IV SCH (17:00)
--- NOTE | 2018-10-10 17:13 | NUR ---
NOTIFIED DR. LEBLANC THAT PATIENT IS A HARD STICK IV. FURTHERMORE PT DOES NOT WANT US TO TRY PERIPHERAL IV INSERTION AGAIN. PT HAS RIGHT EJ #20G BUT PER CT RADIOLOGY, UNABLE TO ADMIN CONTRAST THROUGH EJ. DR. LEBLANC TO SPEAK WITH PATIENT.
[2018-10-10] MEDS ORDERED: HYDROmorphone 2 MG TAB PO SCH (18:00)
--- NOTE | 2018-10-10 18:43 | NUR ---
ASKED DR. LEBLANC TO PLACE DIET ORDER. NO PLANS FOR CT CHEST TODAY.
--- NOTE | 2018-10-10 19:36 | NUR ---
RECEIVED REPORT FROM FERNANDO RN DAYSHIFT NURSE AT BEDSIDE FOR CONTINUITY OF CARE. PT HAS R SIDE EJ AT 20 G RUNNING AT D5 NS AT 100. PT C/O ITCHINESS AND PAIN.
--- NOTE | 2018-10-10 19:36 | NUR ---
ENDORSED POC TO REPORT CHECKER RN. PT IN STABLE CONDITION.
[2018-10-10 20:00] VITALS: BP 150/94
--- NOTE | 2018-10-10 20:00 | NUR ---
PT C/O PAIN 05/19. NO S/S OF OVERT PAIN. PT C/O GENERALIZED PAIN. PT INFORMED THAT SHE CANNOT HAVE HER MEDICATION UNTIL 2138. V/S FOLLOWS T 97.2 P 107 R 18 B/P 150/94 02 96%. PT UPSET AND COMPLAINING THAT SHE WANTS HER MEDICATION AND THAT SHE IS IN PAIN, PT OFFERED NORCO INSTEAD BUT SHE REFUSED SAYING THAT IT MAKES HER ITCHY. PT SAID THAT SHE WOULD WAIT UNTIL HER MEDICATION WAS DUE.
[2018-10-10] MEDS ORDERED: HYDROmorphone 2 MG TAB PO PRN (20:15)
[2018-10-10] MEDS: methylPREDNISolone SS 125 MG/2 ML VIAL IVP SCH (20:28)
[2018-10-10] MEDS: LABETALOL 100 MG TAB PO SCH (20:39)
[2018-10-10] MEDS ORDERED: LABETALOL HCL 300 MG PO SCH (21:00)
[2018-10-10] MEDS ORDERED: QUEtiapine FUMARATE 100 MG TAB PO SCH (21:00)
[2018-10-10] MEDS ORDERED: QUETIAPINE FUMARATE 300 MG PO SCH (21:00)
--- NOTE | 2018-10-10 21:40 | NUR ---
PT GIVEN PRN IVP DILAUDID. PT STARTED TO C/O OF ITCHINESS AND WANTED HER IV BENADRYL. PRIMARY NURSE INFORMED HER THAT SHE NO LONGER HAS IV BENADRYL. PT BECAME VERY IUPSET AND STARTED YELLING THAT SHE IS ITCHY AND THAT PO BENADRYL DOESN'T HELP AND DEMANDED THAT PRIMARY CALL MD TO GET ORDER CHANGED.
[2018-10-10] MEDS ORDERED: HYDROmorphone PFS 2 MG/ML SYR ONE (21:56)
--- NOTE | 2018-10-10 22:00 | NUR ---
SPOKE WITH RESIDENT MD REGARDING PT REQUEST. . DR. YOO SAID NO. BENADRYL WILL REMAIN PO. PT INFORMED AND SHE UPSET. PT DID TAKE THE PO BENADRYL, BUT WAS VERY UPSET THAT SHE CAN NO LONGER HAVE IV BENADRYL. PT WAS NOTED ITCHING HER RIGHT ANKLE. OPEN AREA CLEANED AND REDRESSED.
[2018-10-11] VITALS: BP 154/91
--- NOTE | 2018-10-11 | NUR ---
PT IN BED NO S/S OF PAIN OR DISTRESS NOTED V/S FOLLOWS T 97.6 P 74 R 18 B/P 153/54 02 96%.
[2018-10-11] MEDS: HYDROmorphone PFS 2 MG/ML SYR IVP PRN ×2 (00:40→03:57)
--- NOTE | 2018-10-11 01:30 | NUR ---
PT HAD ORDERED TAKE OUT AND DELIVERY FROM [facility]. PT HAD CONSUMED THE FOOD WITH OUT TELLING STAFF. PT REMINDED THAT SHE WAS SUPPOSED TO REMAIN NPO. RESIDENT TO BE MADE AWARE. AND WILL ENDORSE TO NEXT SHIFT.
[2018-10-11] MEDS: DEXT 5% /NACL 0.9% 1,000 ML IV SCH (03:53)
[2018-10-11 04:00] VITALS: BP 140/86
[2018-10-11] MEDS: methylPREDNISolone SS 125 MG/2 ML VIAL IVP SCH (04:19)
--- NOTE | 2018-10-11 04:45 | NUR ---
PT GIVEN IVP PRN DILAUDID V/S FOLLOWS T 97.0 P 106 R 18 B/P 154/91 02 97%.
[2018-10-11] MEDS ORDERED: HYDROmorphone 2 MG TAB PO PRN (06:15)
--- NOTE | 2018-10-11 06:45 | NUR ---
PT C/O 05/19 PAIN MEDICATION OFFERED BUT PT VEHEMENTLY DECLINED THE MEDICATION WHICH IS NOW A P.O. ORDER. PT STARTED SCREAMING, YELLING AND THROWING A MAJOR TEMPER TANTRUM. PRIMARY NURSE TOLD HER THAT SHE WILL SEND IN PRIMARY DOCTOR REGARDING P.O. ORDER. PT CONTINUED TO SCREAM AND YELL.
[2018-10-11] MEDS: SODIUM PHOS / POTASSIUM PHOS 1 PKT PDR PO SCH ×2 (07:00→11:30)
--- NOTE | 2018-10-11 07:20 | NUR ---
CARE ENDORSED TO KIRSTNI BRUMFIELD NURSE, PT STILL SCREAMING AND YELLING ABOUT DILAUDID ORDER BEING CHANGED TO A PILL AND NOT IVP.
--- NOTE | 2018-10-11 07:30 | NUR ---
RECEIVED PT ON BED CRYING, YELLING STATED SHE WANTS HER DILAUDID IV NOT THE ORAL ONE. SPOKE WITH DR. REARDON, STATED THEY WILL HAVE THEIR ROUNDS WITH DR. BOGGS SOON AND WILL DISCUSSED WITH THE PT. PT KEEPS ON YELLING AND STATED HER PAIN IS UNCONTROLLABLE. IV TO RT EJ PATENT AND RT FOOT PATENT AND INTACT. CHEST CLEAR. ABDOMEN SOFT, BOWEL SOUNDS PRESENT. NO EDEMA NOTED. INSTRUCTED PT TO CALL FOR ASSISTANCE, CALL LIGHT WITHIN REACH, PT VERBALIZED UNDERSTANDING.
[2018-10-11] MEDS ORDERED: hePARIN / DEXT 5% PREMIX 250 ML IV SCH (08:00)
--- NOTE | 2018-10-11 08:00 | NUR ---
DR. BOGGS AND DR. GOODWIN ARE ON ROUNDS, SPOKE WITH THE PT. PT VERBALIZED UNDERSTANDING BUT KEEPS ON CALLING TO GET HER PAIN MEDS NOW, INFORMED THE PT THAT DR. GOODWIN HAD TO FINISHED HER ROUNDS. PT REMOVED TELE BOX, REFUSED TO GET HER BLOOD PRESSURE. DR. GOODWIN MADE AWARE.
--- NOTE | 2018-10-11 08:15 | NUR ---
PT ALSO REFUSED THE HEPARIN DRIP. RISKS, BENEFITS AND CONSEQUENCES DISCUSSED WITH PT, VERBALIZED UNDERSTANDING.
[2018-10-11] MEDS ORDERED: ENOXAPARIN 40 MG/0.4 ML SYR SUBQ SCH (09:00)
[2018-10-11] MEDS ORDERED: HYDROXYCHLOROQUINE 200 MG TAB PO SCH (09:00)
[2018-10-11] MEDS ORDERED: predniSONE 20 MG TAB PO SCH (09:00)
[2018-10-11] MEDS ORDERED: LORazepam 2 MG/ML VIAL IM/IVP ONE (09:10)
--- NOTE | 2018-10-11 09:15 | NUR ---
DR. GOODWIN SPOKE WITH PT AND PT AGREED WITH THE VQ SCAN IF SHE GETS HER IV PAIN MED. CALLED JOSE ALEJANDRO FROM [facility] AND STATED SHE WILL ORDER THE MEDICATION FOR VQ SCAN AND WILL BE HERE BETWEEN 11-30 AM TODAY. CHRISTA FOWLER NOTIFIED.
[2018-10-11] MEDS: GABAPENTIN 300 MG CAP PO SCH (09:51)
[2018-10-11] MEDS: LABETALOL 100 MG TAB PO SCH (09:52)
[2018-10-11] MEDS ORDERED: HYDROmorphone 1 MG/ML AMP IVP SCH (10:00)
[2018-10-11] MEDS ORDERED: NACL 0.9% 1,000 ML IV SCH (10:45)
--- NOTE | 2018-10-11 11:25 | NUR ---
[facility] NOLAN IS HERE TO SCHOOL AIDE PT. PT REFUSED TO GO TO [facility] GIVEN A DOSE OF PAIN MEDS. EXPLAINED TO PT THAT THERE IS NO ORDER FOR PAIN MEDS. PT ASKED FOR BENADRYL IV INSTEAD. DR. GOODWIN NOTIFIED. Addendum: 10/11/18 at 1142 by Nandini Hester RN NUC[facility]AR MED TECH*
[2018-10-11 11:30] VITALS: BP 196/116
[2018-10-11] MEDS ORDERED: diphenhydrAMINE 50 MG/ML VIAL IVP SCH (11:30)
--- NOTE | 2018-10-11 11:38 | NUR ---
BENADRYL IVP GIVEN ORDERED. PT WHEELED TO [facility] DE[facility] IN STABLE CONDITION.
[2018-10-11 13:00] VITALS: BP 140/90
--- NOTE | 2018-10-11 13:45 | NUR ---
PT NOTIFIED BY DR. GOODWIN AT THE BEDSIDE THAT THE VQ SCAN IS NEGATIVE AND THAT SHE CAN BE DISCHARGE HOME. PT ASKED FOR A TAXI VOUCHER AND PRESCRIPTIONS. DR. GOODWIN TOLD PT THE SHE WILL CALL PT'S PHARMACY IN [facility] ([address] [place] [address]) TO SEND THE PRESCRIPTIONS THERE THRU E-SCRIPT. PT VERBALIZED UNDERSTANDING.
--- NOTE | 2018-10-11 14:00 | NUR ---
CALLED [facility]) AND SPOKE WITH ORTEGA, STATED THE ETA IS WITHIN 45 MINS. PT'S ARM BANDS AND IV REMOVED, CANNULA TIP INTACT.
--- NOTE | 2018-10-11 14:30 | NUR ---
DISCHARGE INSTRUCTIONS GIVEN TO PT, VERBALIZED UNDERSTANDING OF THE INSTRUCTIONS GIVEN AND THE NEED TO FOLLOW UP WITH PCP WITHIN 7 DAYS. PT CALLED HER PHARMACY IN [place] AND HAD IT ON SPEAKER PHONE, PT'S PRESCRIPTIONS ARE ALREADY SENT.
--- NOTE | 2018-10-11 14:48 | NUR ---
PT WHEELED TO THE FRONT LOBBY WITH SECURITY. NO SOB NOTED. NO COMPLAINTS MADE. NOTIFIED BRICK BAKER THAT PT WANTS BE DROPPED OFF AT HER PHARMACY IN [place] AND THAT SHE IS ABLE TO WALK HOME AFTER SHE GETS ALL HER PRESCRIPTIONS.
[2018-10-11] MEDS ORDERED: methylPREDNISolone SS 40 MG/ML VIAL IVP SCH (21:00)
[2018-10-13] MEDS ORDERED: predniSONE 20 MG TAB PO SCH (09:00)
[2018-10-16] MEDS ORDERED: HYDROmorphone PFS 2 MG/ML SYR IVP PRN (09:00)
== END 2018-10-11 14:48 | disposition home or self-care (01) | DRG 662 ==
LOC: MED 09:39 → MTU 14:40 → MMU 10-11 08:30
PROVIDERS: ADMIT General Practice; ATTEND General Practice
DX: D57.00 Hb-SS disease with crisis, unspecified (principal); J96.00 Acute respiratory failure, unspecified whether with hypoxia or hypercapnia; N17.0 Acute kidney failure with tubular necrosis; E44.1 Mild protein-calorie malnutrition; E83.42 Hypomagnesemia; E83.39 Other disorders of phosphorus metabolism; M32.9 Systemic lupus erythematosus, unspecified; M79.7 Fibromyalgia; F11.20 Opioid dependence, uncomplicated; G89.29 Other chronic pain; I10 Essential (primary) hypertension; F39 Unspecified mood [affective] disorder; F41.9 Anxiety disorder, unspecified; F32.9 Major depressive disorder, single episode, unspecified; F12.90 Cannabis use, unspecified, uncomplicated; R73.03 Prediabetes; E86.0 Dehydration; F12.99 Cannabis use, unspecified with unspecified cannabis-induced disorder; Z91.19 Patient's noncompliance with other medical treatment and regimen; Z68.30 Body mass index [BMI] 30.0-30.9, adult; Z88.1 Allergy status to other antibiotic agents; Z88.0 Allergy status to penicillin; Z88.8 Allergy status to other drugs, medicaments and biological substances; Z91.14 Patient's other noncompliance with medication regimen
CPT/HCPCS: 36415; 36600; 71045; 78582; 80053; 80305; 81001; 81025; 82140; 82150; 82803; 83605; 83690; 83735; 83880; 84100; 84134; 84484; 85025; 85045; 85379; 85610; 85730; 87081; 87086; 87804; 93005; 94640; 96361; 96374; 96375; 96376; 99285; A9540; G0482; J1170; J1200; J2270; J2550; J2930; J3475; J7030; J7042; J7120; J7620; Q0092; Q0163

== ENCOUNTER 2018-10-24 14:54 | Observation (INO) | payer OTHER ==
[~2018-10-24] VITALS: Ht 165.1 cm; Wt 71.2 kg
[~2018-10-24 14:54] MED LIST changes: -LACT10CA1 PO; -NITR100C7 PO; -VANC125C11 PO
--- NOTE | 2018-10-24 14:58 | NUR ---
PT BIBA BLS TO BED 3
[2018-10-24 15:09] VITALS: BP 123/79
--- NOTE | 2018-10-24 15:10 | NUR ---
PATIENT BIBA WITH C/O RIGHT SIDE OF ABDOMINAL PAIN RADIATING TO RIGHT LEG AND JOINT, 10/10, CRYING AND SCREMING. LAST SEEN IN [facility] 3 WEEKS AGO. POST X5 MONTHS, HX OF SICKLE CELL, FIBROMYALGIA. AAOX4, UNABLE TO WALK, LUNGS CLEAR BL; ELEVATED HR NOTED, PT DENIES ANY FEVER, CP, SOB, OR COUGH AT THIS TIME; PATIENT POSITIONED FOR COMFORT; HOB ELEVATED; BEDRAILS UP X2; BED DOWN. ER MD MADE AWARE OF PT STATUS.
--- NOTE | 2018-10-24 15:19 | NUR ---
Patient being evaluated by physician at bedside.
[2018-10-24] MEDS ORDERED: NACL 0.9% 1,000 ML IV ONE (15:20)
[2018-10-24] MEDS ORDERED: MORPHINE SULFATE 4 MG/ML SYR IVP ONE ×2 (15:20→19:05)
[2018-10-24] MEDS ORDERED: diphenhydrAMINE 50 MG/ML VIAL IVP ONE ×2 (15:20→19:05)
--- NOTE | 2018-10-24 15:33 | NUR ---
PT REFUSED LAB.
--- NOTE | 2018-10-24 15:34 | NUR ---
PT REFUSED IV UNLESS USE VEIN FINDER DUE TO PT IS HARD TO INSERT IV.
--- NOTE | 2018-10-24 15:42 | NUR ---
XRAY AT BEDSIDE
--- NOTE | 2018-10-24 16:53 | NUR ---
PT STATED ABDOMEN HURTS MORE 20 MINS AFTER MORPHINE GIVEN, ED MD MADE AWARE.
--- NOTE | 2018-10-24 18:14 | NUR ---
SPOKE TO PT'S KIZZY STRONG AND UPDATED PT'S CONDITION.
--- NOTE | 2018-10-24 18:43 | NUR ---
PT IS CRYING AND SCREAMING FOR PAIN, ED MD AWARE, WILL ORDER MEDICATIONS.
[2018-10-24] MEDS ORDERED: ZOLPIDEM 5 MG TAB PO PRN (19:00)
[2018-10-24] MEDS ORDERED: MAGNESIUM HYDROXIDE 2400 MG/30 ML UDC PO PRN (19:00)
[2018-10-24] MEDS ORDERED: ACETAMINOPHEN 325 MG TAB PO PRN (19:00)
[2018-10-24] MEDS ORDERED: DOCUSATE SODIUM 100 MG GELCAP PO PRN (19:00)
[2018-10-24] MEDS ORDERED: LORazepam 2 MG/ML VIAL IM/IVP PRN (19:00)
[2018-10-24] MEDS ORDERED: HYDROmorphone 2 MG TAB PO PRN (19:00)
[2018-10-24] MEDS ORDERED: ONDANSETRON 4 MG/2 ML VIAL IM/IVP PRN (19:00)
[2018-10-24] MEDS ORDERED: MORPHINE SULFATE 2 MG/ML SYR IVP PRN ×2 (19:00→19:15)
--- NOTE | 2018-10-24 19:12 | NUR ---
REPORT GIVEN TO PIECE DYE WORKER NURSE FOR CONTINUE OF CARE.
[2018-10-24] MEDS ORDERED: diphenhydrAMINE 50 MG/ML VIAL IVP PRN (19:15)
--- NOTE | 2018-10-24 19:29 | NUR ---
RECEIVED PT FROM ER.PT AWAKE ALERT AND ORIENTED, PT GENERAL WEAKNESS DUE TO SICKLE CELL DSE, NON-AMBULATORY. PT HAS IV SITE ON THE EXT JUGULAR G 22. PATENT AND INTACT. NO IVF RUNNING AT THIS TIME FROM ER. ORIENTED TO UNIT WILL CONTINUE TO MONITOR, PLACED ON LOW BED AND HIGH HERNANDEZ'S POSITION PER PT'S REQUEST. BED ALARM ON. WILL CONTINUE TO MONITOR.
[2018-10-24 20:00] VITALS: BP 140/80
[2018-10-24] MEDS ORDERED: HYDROmorphone 1 MG/ML AMP IVP PRN (20:00)
[2018-10-24] MEDS ORDERED: HYDROmorphone PFS 2 MG/ML SYR IVP PRN (20:00)
--- NOTE | 2018-10-24 20:36 | NUR ---
Patient will be admitted to care of DR. BOGGS. Admited to TELE Will go to room 106 ABelongings list completed. Report to ONELIA STOVALL
[2018-10-24] MEDS ORDERED: QUEtiapine FUMARATE 100 MG TAB PO SCH ×2 (21:00)
[2018-10-24] MEDS: NACL 0.9% 1,000 ML IV SCH (21:26)
--- NOTE | 2018-10-24 21:26 | NUR ---
STARTED IVF W/ NS AT 100 ML/HR ON IV SITE.
[2018-10-24 22:11] LABS: BASOPHILS % (AUTO) 0.3 % (0.0-2.0); EOSINOPHILS % (AUTO) 0.1 % (0.0-4.0); HEMATOCRIT 30.2 % (36-48); HEMOGLOBIN 9.9 g/dL (12.0-16.0); LYMPHOCYTES # (AUTO) 0.8 K/uL (2.5-16.5); LYMPHOCYTES % (AUTO) 24.9 % (20.5-51.1); MEAN CORPUSCULAR HEMOGLOBIN 23 pg (27-31); MEAN CORPUSCULAR HGB CONC 33 g/dL (33-37); MONOCYTES # (AUTO) 0.3 K/uL (0.8-1.0); MONOCYTES % (AUTO) 10.1 % (1.7-9.3); NEUTROPHILS # (AUTO) 2.2 K/uL (1.8-7.7); NEUTROPHILS % (AUTO) 64.6 % (42.2-75.2); PLATELET COUNT (AUTO) 555 K/uL (140-450); RED BLOOD CELL COUNT(AUTO) 4.37 MIL/uL (4.20-5.40); RED CELL DISTRIBUTION WIDTH 24.6 % (11.6-13.7); WHITE BLOOD COUNT (AUTO) 3.3 K/uL (4.8-10.8)
[2018-10-24 22:33] LABS: ALBUMIN 3.1 g/dL (3.4-5.0); ANION GAP 15.4 (8-16); CARBON DIOXIDE 24.6 mmol/L (21-32); CREATININE 0.6 mg/dL (0.6-1.3); TOTAL BILIRUBIN 0.2 mg/dL (0.0-1.0)
[2018-10-24] MEDS ORDERED: LOVENOX 1MG/KG Q12H SUBQ SCH (23:05)
[2018-10-24 23:11] LABS: APPEARANCE,URINE CLEAR (CLEAR); BILIRUBIN,URINE NEGATIVE (NEGATIVE); BLOOD, URINE TRACE-L (NEGATIVE); COLOR,URINE YELLOW (YELLOW); LEUKOCYTE ESTERASE ,URINE 1+ (NEGATIVE); NITRITE, URINE NEGATIVE (NEGATIVE); PH,URINE 6.5 (5.0-9.0); UGLUCOSE NEGATIVE (NEGATIVE)
[2018-10-24 23:11] LABS: PROTHROMBIN TIME 10.3 secs (10.8-13.4)
[2018-10-24 23:17] LABS: BARBITURATE, URINE NEG. ng/ml (NEG <=200); BENZODIAZEPINE, URINE NEG. ng/mL (NEG <=200); CANNABINOID, URINE NEG. ng/mL (NEG <=50); COCAINE, URINE NEG. ng/mL (NEG <=300); OPIATE, URINE POS. ng/mL (NEG <=2000); PHENCYCLIDINE SCREEN,URINE NEG. ng/mL (NEG <=25)
[2018-10-24 23:18] LABS: MAGNESIUM 1.7 mg/dL (1.8-2.4); PHOSPHORUS 5.1 mg/dL (2.5-4.9); THYROID STIMULATING HORMONE 1.93 uIU/mL (0.34-3.74)
[2018-10-25] VITALS: BP 140/83
[2018-10-25] MEDS: HYDROmorphone 1 MG/ML AMP IVP PRN ×4 (00:16→10:22)
--- NOTE | 2018-10-25 00:26 | NUR ---
NON ADMINISTERED METOPROLOL BEC PT TOOK IT THIS TODAY BEFORE ADMISSION [facility]
--- NOTE | 2018-10-25 00:27 | NUR ---
REFUSED LOVENOX BECAUSE SHE SAID SHE TOOK IT ALREADY AT HOME [facility]
--- NOTE | 2018-10-25 00:43 | NUR ---
WILL ADMINISTER LOVENOX AND METOPROLO NOW PER DOCTORS ORDER, DUE TO TROPONIN I IS 0.135
[2018-10-25] MEDS: METOPROLOL 25 MG TAB PO SCH ×2 (00:49)
[2018-10-25] MEDS: ENOXAPARIN 80 MG/0.8 ML SYR SUBQ SCH ×2 (00:50)
--- NOTE | 2018-10-25 00:56 | NUR ---
DR. SMITH AT BEDSIDE EXPLAINED TO PT THAT FOR CT SCAN W/ CONTRAST NEED TO START A MIDLINE
--- NOTE | 2018-10-25 01:30 | NUR ---
CALLED PICC LINE NURSE [phone] AND LEFT MESSAGE.
[2018-10-25 04:00] VITALS: BP 129/89
[2018-10-25] MEDS: NACL 0.9% 1,000 ML IV SCH (04:59)
--- NOTE | 2018-10-25 05:08 | NUR ---
STARTED LEVOFLOXACIN ORDERED
[2018-10-25] MEDS ORDERED: LEVOFLOXACIN 250 MG/D5 PREMIX 50 ML IV SCH (06:00)
[2018-10-25] MEDS ORDERED: ALPRAZolam 0.5 MG TAB PO PRN (06:00)
--- NOTE | 2018-10-25 07:25 | NUR ---
RECIEVED REPORT FROM PM NURSE AT BEDSIDE. PT SCREAMING DUE TO PAIN. PM NURSE TO ADMINISTER PAIN MEDS TO THE PATIENT. PT HAS RT EXTERNAL IJ .PT DUE FOR CT SCAN OF CHEST WITH CONTRAST, NEEDS 20 G IV SITE. WAITING FOR THE PICC LINE NURSE TO INSER MIDLINE IN PT. PM NURSE CONTACTED LAST NIGHT. PT IS ON SEIZURE PRECAUTION. UPDATED BOARD AND INTRODUCED SELF. CALL LIGHT WITHIN PT REACH. WILL CONTINUE TO MONITOR PT.
--- NOTE | 2018-10-25 07:40 | NUR ---
DILAUDID GIVEN WAS NOT DOCUMENTED AT THE [facility]. REASON: CHANGE OF SHIFT AND PT NEEDED NOW.
--- NOTE | 2018-10-25 07:40 | NUR ---
ADMINISTERED DILAUDID WITH PATIENT, INFORMED NURSE SITAL THAT I ADMINISTERED. NOT DOCUMENTED AT THE [facility]ANNER, IT DID NOT WENT IT.
[2018-10-25 08:00] VITALS: BP 99/56
--- NOTE | 2018-10-25 08:25 | NUR ---
PATIENT HAS BEEN SCREENED AND CATEGORIZED MODERATE NUTRITION RISK. PATIENT WILL BE SEEN WITHIN 3-5 DAYS OF ADMISSION. 10/27/18SHREE [address] RD
[2018-10-25] MEDS: GABAPENTIN 300 MG CAP PO SCH ×2 (08:56→13:00)
[2018-10-25] MEDS ORDERED: ENOXAPARIN 80 MG/0.8 ML SYR SUBQ SCH (09:00)
[2018-10-25] MEDS ORDERED: HYDROXYCHLOROQUINE 200 MG TAB PO SCH ×2 (09:00)
[2018-10-25] MEDS ORDERED: METOPROLOL 25 MG TAB PO SCH ×2 (09:00)
[2018-10-25] MEDS ORDERED: predniSONE 20 MG TAB PO SCH (09:00)
[2018-10-25] MEDS ORDERED: ENOXAPARIN 40 MG/0.4 ML SYR SUBQ SCH (09:00)
--- NOTE | 2018-10-25 09:00 | NUR ---
ADMINISTERED MEDS TO PT ORDERED. PAIN MEDS ADMINISTERED MY PM NURSE. PICC LINE NURSE CALLED, CONSENT SIGNED BY PT AND MD. PUT IN FILE PT TO GET THE MID LINES INSERTED. PT SITTING IN HER BED AT THIS TIME. WILL CONTINUE TO MONITOR PT.
--- NOTE | 2018-10-25 10:30 | NUR ---
ADMINISTERED PAIN MEDS TO PT. ASKING FOR BENADRYL. PT INFORMED THAT BENADRYL HAS BEEN DC AT THIS TIME. PER MD, WILL DECIDE IF TO CONTINUE BENADRYL AFTER CT OF CHEST HAS BEEN DONE. CALLED CENTRAL CONTROL ROOM OPERATOR, PT TO GET THE CT AT 1230. PT TO BE NPO AT THIS TIME UNTIL THE CT HAS BEEN DONE.
[2018-10-25 12:00] VITALS: BP 113/71
[2018-10-25] MEDS ORDERED: HYDROmorphone 2 MG TAB PO PRN (13:15)
--- NOTE | 2018-10-25 13:30 | NUR ---
PT REFUSED HER NEURONTIN. IV DILAUDID HAS BEEN DISCONTINUED. PO DILAUDID AVAILABLE FOR HER PAUIN. PT REFUSED TO TAKE HER MEDS. STATES THAT SHE IS NOT BEING TAKEN CARE OF. PT ASKING FOR THE TAXI VOUCHER TO GO HOME AND TO ASKING FRO REFILL OF HER PAIN MEDS. MD AWARE. MD TALKING TO PT AT THE BEDSIDE.
[2018-10-25] MEDS ORDERED: LEVO750T2 PO (13:39)
--- NOTE | 2018-10-25 13:56 | NUR ---
PT ASKING FOR TAXI VOUCHER TO GO HOME. INFORMED HER THAT WILL TALK TO HOME SALES SERVICE PROFESSIONAL ONCE DISCHARGE ORDER HAS BEEN FINALIZED BY MD. PT NON-COMPLIANCE. STATES THAT SHE WANTS TO LEAVE NOW, ASKING FOR HOME SALES SERVICE PROFESSIONAL . TALKED TO DR FOX, WILL PUT ORDER FOR TAXI VOUCHER . WAITING FOR THE DISCHARGE ORDERED TO BE FINALIZED.
[2018-10-25] MEDS ORDERED: DOXY100C9 PO (14:15)
[2018-10-25] MEDS ORDERED: LACT10CA1 PO (14:18)
[2018-10-25] MEDS ORDERED: FERR324T11 PO (14:56)
--- NOTE | 2018-10-25 15:27 | NUR ---
PT SIGNED THE DISCHARGE PAPER. DC PACKET , PRESCRIPTION AND THE PAPER PROVIDED. TAXI VOUCHER AVAILABLE TO PT. WAITING FOR TAXI.
[2018-10-25] MEDS ORDERED: FERROUS GLUCONATE 324 MG TAB PO SCH (17:00)
--- NOTE | 2018-10-25 17:25 | NUR ---
PLS DISCARD PAIN RE-ASSESMENT NOTE. WRONG ENTRY
--- NOTE | 2018-10-25 19:00 | NUR ---
PT PICKED UP BY MARISELA AT 1900. PT JOHNNY. WALKED OUT FO HOSPITAL BY HERSELF.
== END 2018-10-25 19:00 | disposition home or self-care (01) ==
LOC: MED 14:54 → MTU 19:07
PROVIDERS: ADMIT General Practice; ATTEND General Practice
DX: D57.1 Sickle-cell disease without crisis (principal); F11.20 Opioid dependence, uncomplicated; R10.84 Generalized abdominal pain; M79.7 Fibromyalgia; M32.9 Systemic lupus erythematosus, unspecified; M06.9 Rheumatoid arthritis, unspecified; Z86.711 Personal history of pulmonary embolism; J45.909 Unspecified asthma, uncomplicated; G89.4 Chronic pain syndrome; I10 Essential (primary) hypertension; R00.0 Tachycardia, unspecified; F41.9 Anxiety disorder, unspecified; J06.9 Acute upper respiratory infection, unspecified; R07.2 Precordial pain
CPT/HCPCS: 36415; 71045; 76937; 80053; 80305; 81001; 81025; 82150; 83690; 83735; 84100; 84443; 84484; 85025; 85045; 85379; 85610; 85730; 87081; 87086; 93005; 93307; 93970; 96365; 96372; 96375; 96376; 99285; C1751; G0378; J1170; J1200; J1650; J1956; J2060; J2270; J7030; J7512; Q0092; 96361; 96374

== ENCOUNTER 2018-10-29 12:41 | Emergency (ER) | payer OTHER ==
[~2018-10-29] VITALS: Ht 160 cm; Wt 63.5 kg
[~2018-10-29 12:41] MED LIST changes: +DOXY100C9 PO; +FERR324T11 PO; +LACT10CA1 PO; +LEVO750T2 PO
--- NOTE | 2018-10-29 12:43 | NUR ---
PT BIBA BLS TO BED 2
[2018-10-29 13:00] VITALS: BP 143/93
--- NOTE | 2018-10-29 13:00 | NUR ---
PT BIBA BLS C/O CHRONIC BODY ACHES AND ABD PAIN 10/10 ACHING WORSENING SINCE LAST NIGHT. ADMITS NAUSEA. DENIES VOMITTING/DIARRHEA. LAST DOSE OF HOME MEDICATION DILUADID TAKEN AT 0300 PER PT. ABD SOFT FLAT NONTENDER, BOWEL SOUNDS X 4 QUADRANTS. LBM TODAY.
[2018-10-29] MEDS ORDERED: hydrOXYzine HCL 25 MG TAB PO ONE (13:55)
[2018-10-29] MEDS ORDERED: MORPHINE SULFATE 4 MG/ML SYR IM ONE (13:55)
[2018-10-29] MEDS ORDERED: diphenhydrAMINE 50 MG/ML VIAL IM ONE (13:55)
[2018-10-29] MEDS: PROMETHAZINE 25 MG/ML VIAL IM ONE ×2 (14:20→14:23)
[2018-10-29 14:26] LABS: APPEARANCE,URINE CLOUDY (CLEAR); BILIRUBIN,URINE NEGATIVE (NEGATIVE); BLOOD, URINE 1+ (NEGATIVE); COLOR,URINE YELLOW (YELLOW); LEUKOCYTE ESTERASE ,URINE NEGATIVE (NEGATIVE); NITRITE, URINE NEGATIVE (NEGATIVE); PH,URINE 6.5 (5.0-9.0); UGLUCOSE NEGATIVE (NEGATIVE)
[2018-10-29 14:32] LABS: BARBITURATE, URINE NEG. ng/ml (NEG <=200); BENZODIAZEPINE, URINE POS. ng/mL (NEG <=200); CANNABINOID, URINE NEG. ng/mL (NEG <=50); COCAINE, URINE NEG. ng/mL (NEG <=300); OPIATE, URINE NEG. ng/mL (NEG <=2000); PHENCYCLIDINE SCREEN,URINE NEG. ng/mL (NEG <=25)
[2018-10-29 14:35] VITALS: BP 143/91
--- NOTE | 2018-10-29 14:35 | NUR ---
PT AMBULATED FROM THE ROOM TO HALLWAY. REFUSED DISCHARGE INSTRUCTION AND PAPERS. BUS PASS OFFERED, PT REFUSED BUS PASS.
[2018-10-29 14:38] LABS: WBC,URINE 0-5 /HPF (0-5)
== END 2018-10-29 14:35 | disposition home or self-care (01) ==
LOC: MED 12:41
DX: G89.29 Other chronic pain (principal); R11.0 Nausea; M79.7 Fibromyalgia; Z79.2 Long term (current) use of antibiotics; Z79.899 Other long term (current) drug therapy; Z88.0 Allergy status to penicillin; Z79.82 Long term (current) use of aspirin; Z88.1 Allergy status to other antibiotic agents; Z88.6 Allergy status to analgesic agent; Z88.5 Allergy status to narcotic agent
CPT/HCPCS: 80305; 81001; 81025; 87086; 96372; 99283; J1200; J2270; J2550

== ENCOUNTER 2018-10-29 22:14 | Observation (INO) | payer OTHER ==
[~2018-10-29] VITALS: Ht 165.1 cm; Wt 71.7 kg
[2018-10-29 22:23] VITALS: BP 157/96
--- NOTE | 2018-10-30 00:55 | NUR ---
PT WAS WHEEL CHAIRED TO BED #2
--- NOTE | 2018-10-30 00:58 | NUR ---
PT AMBULATED TO THE RESTROOM
--- NOTE | 2018-10-30 01:00 | NUR ---
PT BIBA WITH C/O JOINT PAIN AND STATED SHE HAS SOME ABD PAIN. PT STATES 10/10 THROUGH OUT BODY AT THIS TIME. PT WAS SEEN IN ER THIS MORNING. ZULY CASTELLANO STATED THAT SHE WAS AT [facility] AND AT [facility]. PT IN BED; BED IN LOWER LOCKED POSITION. ER MD MADE AWARE OF PT STATUS. PT MEDICAL HX IS SICKLE CELL, ARTHRITIS, ANEMIA, ASTHMA, LUPUS. ALLERGIES: PENICILLINS, ERYTHROMYCIN, TORADOL, ROCEPHIN, TRAMADOL, FENTYNOL, IBUPROFEN, TYLENOL
[2018-10-30] MEDS ORDERED: diphenhydrAMINE 50 MG/ML VIAL IVP ONE (01:10)
[2018-10-30] MEDS ORDERED: MORPHINE SULFATE 4 MG/ML SYR IVP ONE ×2 (01:10→04:30)
--- NOTE | 2018-10-30 01:15 | NUR ---
ATTEMPTED IV X 4, NO SUCCESS. EDMD AWARE.
--- NOTE | 2018-10-30 02:10 | NUR ---
ATTEMPTED TO INSERT IV 3X WITHOUT SUCCESS. PT ABLE TO TOLERATE PROCEDURE. MANAGER SCHEDULING MADE AWARE. CHARGE NURSE ATTEMPTED TO INSERT IV 1X WITHOUT SUCCESS. PT REQUESTING TO HAVE EJ IV INSERTION OR LOWER EXTREMITY IV INSERTION. EXPLAINED TO PT THAT THEY REQUIRE MD ORDER. ER MD MADE AWARE. PER ER MD, MEDICATIONS WILL BE SWITCHED TO IM AND LABS WILL BE CANCELLED.
[2018-10-30] MEDS ORDERED: diphenhydrAMINE 50 MG/ML VIAL IM ONE (02:25)
[2018-10-30] MEDS ORDERED: MORPHINE SULFATE 4 MG/ML SYR IM ONE (02:25)
[2018-10-30 02:38] LABS: APPEARANCE,URINE CLEAR (CLEAR); BILIRUBIN,URINE NEGATIVE (NEGATIVE); BLOOD, URINE TRACE-L (NEGATIVE); COLOR,URINE YELLOW (YELLOW); LEUKOCYTE ESTERASE ,URINE NEGATIVE (NEGATIVE); NITRITE, URINE NEGATIVE (NEGATIVE); PH,URINE 6.5 (5.0-9.0); UGLUCOSE NEGATIVE (NEGATIVE)
[2018-10-30] MEDS ORDERED: MORPHINE SULFATE 4 MG/ML SYR ONE ×2 (02:40→05:01)
[2018-10-30 02:54] LABS: RBC,URINE 0-5 /HPF (0-5)
[2018-10-30 02:55] LABS: WBC,URINE 0-5 /HPF (0-5)
--- NOTE | 2018-10-30 03:30 | NUR ---
3 ATTEMPTS MADE TO START IV. PT TOLERATED WELL. PT IS REQUESTING TO KEEP LOOKING OR TO START AN EJ. TRIP OWENS MADE AWARE OF PT REQUEST.
--- NOTE | 2018-10-30 04:05 | NUR ---
RIGHT EJ STARTED BY ONELIA ISLAS. OK BY TRIP OWENS. MEDS GIVEN.
--- NOTE | 2018-10-30 05:15 | NUR ---
LAB AT BEDSIDE.
--- NOTE | 2018-10-30 06:18 | NUR ---
STATUS/UPDATE ON PATIENT TO HAND RUG CLEANER FROM [employer], PATIENTS INSURANCE.
[2018-10-30] MEDS ORDERED: NACL 0.9% 1,000 ML IV SCH (06:46)
[2018-10-30] MEDS ORDERED: LORazepam 2 MG/ML VIAL IM/IVP PRN (06:50)
[2018-10-30] MEDS ORDERED: ACETAMINOPHEN 325 MG TAB PO PRN (06:50)
[2018-10-30] MEDS ORDERED: HYDROcodone/APAP 5/325 MG 1 TAB TAB PO PRN (06:50)
[2018-10-30] MEDS ORDERED: ZOLPIDEM 5 MG TAB PO PRN (06:50)
[2018-10-30] MEDS ORDERED: DOCUSATE SODIUM 100 MG GELCAP PO PRN (06:50)
[2018-10-30] MEDS ORDERED: MORPHINE SULFATE 2 MG/ML SYR IVP PRN (06:50)
[2018-10-30] MEDS ORDERED: ONDANSETRON 4 MG/2 ML VIAL IM/IVP PRN (06:50)
[2018-10-30] MEDS ORDERED: ALPRAZolam 0.5 MG TAB PO PRN (06:55)
[2018-10-30] MEDS ORDERED: HYDROmorphone 2 MG TAB PO PRN ×2 (06:55→13:35)
--- NOTE | 2018-10-30 07:13 | NUR ---
Pt report given to ONELIA Sarmiento. Transfer of care at this time.
--- NOTE | 2018-10-30 07:30 | NUR ---
Pt transferred to Tele via 119A.
--- NOTE | 2018-10-30 07:40 | NUR ---
RECEIVED BEDSIDE REPORT FROM ER NURSE. PATIENT IS AWAKE, ALERT AND ORIENTED X4. PATIENT REFUSED VITALS AND TELE MONITOR AT THIS TIME. DOCTOR LEI IS AWARE. SKIN IS INTACT, PATIENT IS CONTINENT AND AMBULATORY. RIGHT EJ 18G SALINE LOCK IS CLEAN DRY AND INTACT. EDUCATED THE IMPORTANCE OF CHECKING VITALS, PATIENT STILL REFUSED. BED IN LOW POSITION, AND CALL LIGHT WITHIN REACH. WILL CONTINUE TO MONITOR.
[2018-10-30 08:00] VITALS: BP 159/117
[2018-10-30] MEDS ORDERED: diphenhydrAMINE 50 MG/ML VIAL IVP SCH (08:30)
[2018-10-30] MEDS ORDERED: hydrALAZINE 20 MG/ML VIAL IVP SCH (08:30)
[2018-10-30] MEDS ORDERED: MORPHINE SULFATE 4 MG/ML SYR IVP PRN (08:40)
[2018-10-30] MEDS ORDERED: FERROUS GLUCONATE 324 MG TAB PO SCH (09:00)
[2018-10-30] MEDS ORDERED: HYDROXYCHLOROQUINE 200 MG TAB PO SCH (09:00)
[2018-10-30] MEDS ORDERED: LABETALOL 200 MG TAB PO SCH (09:00)
[2018-10-30] MEDS ORDERED: LABETALOL HCL 300 MG PO SCH (09:00)
[2018-10-30] MEDS ORDERED: predniSONE 20 MG TAB PO SCH (09:00)
[2018-10-30] MEDS ORDERED: ENOXAPARIN 40 MG/0.4 ML SYR SUBQ SCH ×2 (09:00)
[2018-10-30] MEDS ORDERED: DOCUSATE SODIUM 100 MG GELCAP PO SCH (09:00)
--- NOTE | 2018-10-30 09:24 | NUR ---
STARTED NS @ 60 ML/HR IN RIGHT EJ 20 G, SITE IS CLEAN DRY AND INTACT, ADDED SALINE LOCK EXTENSION FOR COMFORT.
[2018-10-30] MEDS: GABAPENTIN 300 MG CAP PO SCH ×3 (09:35→12:54)
--- NOTE | 2018-10-30 09:47 | NUR ---
ADMINISTERED MEDS. PATIENT REFUSED COLACE, SHE SAID SHE DOESNT NEED IT. PATIENT TOLERATED WELL. EXPLAINED SIDE EFFECTS. PATIENT VERBALIZED UNDERSTANDING.
[2018-10-30] MEDS ORDERED: ALBUTEROL SULFATE/IPRATROPIU 3 ML SOL IH PRN (10:30)
[2018-10-30 10:34] VITALS: BP 140/89
--- NOTE | 2018-10-30 11:05 | NUR ---
PATIENT IS SLEEPING. NO SIGNS OF DISTRESS ON RA. NO COMPLAINTS AT THIS TIME. PATIENT ABLE TO MAKE NEEDS KNOWN
[2018-10-30 12:00] VITALS: BP 151/94
--- NOTE | 2018-10-30 12:56 | NUR ---
PATIENT REFUSED GABAPENTIN AT THIS TIME. EDUCATED TO THE RISKS. PATIENT STILL REFUSES TO TAKE MED
[2018-10-30] MEDS: ALBUTEROL SULFATE/IPRATROPIU 3 ML SOL IH SCH ×2 (13:00→19:00)
--- NOTE | 2018-10-30 13:17 | NUR ---
PT REFUSED TX AT THIS TIME EDUCATED IMPORTANCE OF TX AND PT STILL REFUSED. WILL CONTINUE TO MONITOR PT FOR SOB. NO SOB NOTED AT THIS TIME. PT ONLY COMPLAINS OF PAIN.
--- NOTE | 2018-10-30 13:46 | NUR ---
PATIENT SLEEPING, NO SIGNS OF DISTRESS, CALL LIGHT WITHIN REACH. WILL CONTINUE TO MONITOR. PER DR. ODOM NO IV PAIN MEDS, ONLY PO PAIN MEDS AND IF PATIENT ABLE TO AMBULATE AND EAT PATIENT MAY BE DISCHARGED.
--- NOTE | 2018-10-30 14:55 | NUR ---
PATIENT IS SCREAMING IM IN PAIN, IM IN PAIN, IM HURTING PLEASE. TOLD DR ODOM THAT THE PATIENT DOES NOT WANT DILAUDID PO BECAUSE SHES IN TOO MUCH PAIN, SHE WANTS PAIN MEDS IV. DR ODOM PATIENT NEEDS PO PILLS FOR NOW D/T THE RISKS OF RESPIRATORY DEPRESSION. SHE SAID TO GIVE DILAUDID PO AND SHE WILL COME BACK FROM ER AND ASSESS THE PATIENT
--- NOTE | 2018-10-30 15:01 | NUR ---
ADMINISTERED PRN DILAUDID PO, PATIENT SCREAMING I JUST WANT TO , I CANT TAKE THIS. PATIENT SAT ON THE FLOOR AND IS CRYING ON THE FLOOR. TOLD PATIENT I CANNOT GIVE HER ANYTHING THATS NOT ORDERED. DR ODOM WILL COME BACK TO ASSESS PATIENT.
--- NOTE | 2018-10-30 15:04 | NUR ---
PATIENT STATED THAT SHE WAS GOING TO PULL OUT HER IV. DISCONNECTED IV FLUID, IV ACCESS INTACT AND PATENT AT THIS TIME. TOLD PATIENT WE NEED TO KEEP IV ACCESS IN CASE OF EMERGENCY. EDUCATED PATIENT ON THE IMPORTANCE OF FLUIDS FOR SICKLE CELL CRISIS. PATIENT STILL REFUSED TO RECONNECT IV FLUID AT THIS TIME.
--- NOTE | 2018-10-30 15:05 | NUR ---
CHARGE NURSE AND BLANKET WINDER HELPER AT BEDSIDE, PATIENT PLACED BACK IN BED, CHARGE NURSE EXPLAINED TO PATIENT THAT THE PO MEDS NEED TIME TO WORK AND ENCOURAGED PATIENT TO ALLOW FOR MEDS TO TAKE AFFECT. PATIENT STILL UPSET AND CRYING BUT NO LONGER SCREAMING. DR. ODOM TO COME AND SEE PATIENT.
--- NOTE | 2018-10-30 15:42 | NUR ---
PT REFUSED 1300 TX, PT ALSO REFUSED IS AT THAT TIME WELL, COMPLAINS OF PAIN. ONCE I EDUCATED ABOUT THE IMPORTANCE IF THE IS AT 1532 PT DID NOT WANT TO TRY IT. STATES SHES JUST IN PAIN. I AGAIN EXPLAINED THE PURPOSE OF THE IS BUT PT REFUSES AT THIS TIME. WILL CONTINUE TO MONITOR PT.
[2018-10-30 16:00] VITALS: BP 155/87
--- NOTE | 2018-10-30 17:02 | NUR ---
DR ODOM WENT IN TO SEE THE PATIENT. THE PATIENT WAS TOLD SHE WILL NOT HAVE ANY IV PAIN MED OR BENADRYL. PATIENT IS SCREAMING THAT THE PO DILAUDID DOES NOT WORK AT THIS TIME. DR ODOM TOLD HER DR ZAIDI SAID NO MORE IV PAIN MEDS D/T POSSIBLE DECREASED RESPIRATORY SYSTEM. PATIENT SAID SHE HAS NO PROBLEMS W HER RESPIRATORY SYSTEM AND SHE IS IN SO MUCH PAIN. DR ODOM SAID SHE HAS TO LET THE DILAUDID KICK IN BECAUSE DILAUDID PO IS LONGER ACTING. PATIENT SCREAMING THAT ITS NOT HELPING. DR ODOM TOLD HER THAT THEY NEED TO CHECK HER LABS AND THAT THE VITALS ARE STABLE AND SHE CAN BE DISCHARGED. PATIENT MAD BECAUSE SHE DOES NOT FEEL READY TO GO HOME. DR ODOM SAID WE WILL CONTINUE TO MONITOR THE PATIENT
[2018-10-30 17:26] LABS: BASOPHILS % (AUTO) 0.2 % (0.0-2.0); HEMATOCRIT 26.5 % (36-48); HEMOGLOBIN 8.8 g/dL (12.0-16.0); LYMPHOCYTES # (AUTO) 0.3 K/uL (2.5-16.5); LYMPHOCYTES % (AUTO) 8.6 % (20.5-51.1); MEAN CORPUSCULAR HEMOGLOBIN 23 pg (27-31); MEAN CORPUSCULAR HGB CONC 33 g/dL (33-37); MEAN CORPUSCULAR VOLUME 68.6 fL (80-94); MONOCYTES # (AUTO) 0.1 K/uL (0.8-1.0); NEUTROPHILS # (AUTO) 3.5 K/uL (1.8-7.7); NEUTROPHILS % (AUTO) 88.2 % (42.2-75.2); PLATELET COUNT (AUTO) 673 K/uL (140-450); RED BLOOD CELL COUNT(AUTO) 3.86 MIL/uL (4.20-5.40); RED CELL DISTRIBUTION WIDTH 24.5 % (11.6-13.7)
--- NOTE | 2018-10-30 17:49 | NUR ---
PATIENT SAID NOW THAT HER LABS ARE DRAWN IF SHE WILL BE GETTING IV PAIN MED. TOLD HER DR WANTS TO CONTINUE TO MONITOR ON DILAUDID PO. SHE SAID SHE WANTS TO TALK TO PERSON IN CHARGE. TOLD GAVIN CHARGE NURSE THAT PATIENT WANTS TO TALK TO HER
[2018-10-30 17:52] LABS: CHOL/HDL RATIO 3.6 (1-4.5); MAGNESIUM 1.7 mg/dL (1.8-2.4); PHOSPHORUS 3.6 mg/dL (2.5-4.9); THYROID STIMULATING HORMONE 0.22 uIU/mL (0.34-3.74)
[2018-10-30 18:02] LABS: PROTHROMBIN TIME 10.7 secs (10.8-13.4)
--- NOTE | 2018-10-30 18:45 | NUR ---
PATIENT REQUESTING TO SPEAK TO DR. VIEYRA ABOUT PAIN MEDICATION. DR. VIEYRA AWARE
--- NOTE | 2018-10-30 18:55 | NUR ---
TOLD MEDICAL LIBRARIAN THAT PATIENT WANTS TO SPEAK WITH SOMEONE IN CHARGE. MEDICAL LIBRARIAN CHET PORTER.
--- NOTE | 2018-10-30 19:14 | NUR ---
GAVE BEDSIDE REPORT TO MONOTYPER NURSE, PATIENT ENDORSED IN STABLE CONDITION
--- NOTE | 2018-10-30 19:40 | NUR ---
PATIENT REFUSED LOC AWAKE AND ALERT VERY AGITATION PATIENT STATES "I'M LEAVING WHERE IS MY NURSE IF THEY DON'T GET HERE I'M GOING TO PULL THIS IV OUT" NOC/RN SIMULTANEOUSLY ENTERING ROOM
[2018-10-30 19:41] LABS: ANION GAP 20.4 (8-16); CARBON DIOXIDE 21.4 mmol/L (21-32); CREATININE 0.7 mg/dL (0.6-1.3); POTASSIUM 3.8 mmol/L (3.5-5.1)
--- NOTE | 2018-10-30 19:41 | NUR ---
RECEIVED BEDSIDE REPORT FROM DAY SHIFT NURSE DELORES RN, PT STABLE, NO DISTRESS NOTED, IV TO R EJ 20G PATENT, INTACT, PT REFUSING IV FLUIDS, INITIAL ASSESSMENT DONE, ALL SAFETY PRECAUTION MET, CALL LIGHT WITHIN REACH, WILL CONTINUE TO MONITOR.
--- NOTE | 2018-10-30 19:45 | NUR ---
MILIEU THERAPIST CHET HOOVER RN, TALKED TO PT, PT AGITATED.
[2018-10-30 19:46] LABS: ALBUMIN 2.8 g/dL (3.4-5.0); TOTAL BILIRUBIN 0.1 mg/dL (0.0-1.0)
--- NOTE | 2018-10-30 19:50 | NUR ---
PT STATED SHE WANTS TO GO HOME, DR. VIEYRA AT BEDSIDE TALKING TO PT, PT INSISTED THAT SHE WANTS TO LEAVE, AMA FORM SIGNED, PT LEFT UNIT WALKING, IN STABLE CONDITION, IV TAKEN OUT, CATH INTACT.
[2018-10-30] MEDS ORDERED: QUETIAPINE FUMARATE 300 MG PO SCH (21:00)
[2018-10-30] MEDS ORDERED: QUEtiapine FUMARATE 100 MG TAB PO SCH (21:00)
[2018-11-01 00:04] LABS: BARBITURATE, URINE NEGATIVE ng/ml (NEG <=200); BENZODIAZEPINE, URINE POSITIVE ng/mL (NEG <=200); CANNABINOID, URINE NEGATIVE ng/mL (NEG <=50); COCAINE, URINE NEGATIVE ng/mL (NEG <=300); OPIATE, URINE POSITIVE ng/mL (NEG <=2000); PHENCYCLIDINE SCREEN,URINE NEGATIVE ng/mL (NEG <=25)
== END 2018-10-30 19:50 | disposition left against medical advice (07) ==
LOC: MED 22:14 → MTU 10-30 06:46 → UNDODISOB 10-30 19:50
PROVIDERS: ADMIT Family Medicine; ATTEND Family Medicine
DX: D57.00 Hb-SS disease with crisis, unspecified (principal); I10 Essential (primary) hypertension; R00.0 Tachycardia, unspecified; M79.7 Fibromyalgia; M06.9 Rheumatoid arthritis, unspecified; F41.9 Anxiety disorder, unspecified; Z86.711 Personal history of pulmonary embolism; Z91.19 Patient's noncompliance with other medical treatment and regimen; G89.4 Chronic pain syndrome
CPT/HCPCS: 36415; 71045; 80053; 80061; 80305; 81001; 83036; 83690; 83735; 84100; 84134; 84443; 85025; 85610; 85730; 87081; 94760; 96372; 96374; 96375; 96376; 99285; G0378; J0360; J1200; J2270; J7030; J7512; Q0092; J7620

== ENCOUNTER 2018-11-10 15:44 | Emergency (ER) | payer OTHER ==
[~2018-11-10] VITALS: Ht 165.1 cm; Wt 71.7 kg
[2018-11-10 15:44] VITALS: BP 124/83
[~2018-11-10 15:44] MED LIST changes: -LEVO750T2 PO
--- NOTE | 2018-11-10 15:44 | NUR ---
Patient BIBA BLS, transferred to bed 7. RN evaluating patient at bedside.
--- NOTE | 2018-11-10 15:45 | NUR ---
BIBA W C/O JOINT/ABD PAIN X2 DAYS. PET PT: SHE TOOK DILAIDID 4MG TODAY AT 0700 FOR PAIN. VOMIT X5 TODAY. BOWEL SOUNDS PRESENT X4, ABD SOFT, FLAT, TENDER TO TOUCHSKIN IS WARM/DRY; AAOX4 WITH EVEN AND STEADY GAIT; LUNGS CLEAR BL; HR ELEVATED, 134 MD AWARE. PATIENT POSITIONED FOR COMFORT; HOB ELEVATED; BEDRAILS UP X1; BED DOWN. ER MD MADE AWARE OF PT STATUS.
--- NOTE | 2018-11-10 16:17 | NUR ---
Dr. Reagan evaluating patient at bedside.
--- NOTE | 2018-11-10 16:37 | NUR ---
Dr. York evaluating patient at bedside.
--- NOTE | 2018-11-10 16:43 | NUR ---
x-ray at bedside
[2018-11-10] MEDS ORDERED: NACL 0.9% 1,000 ML IV ONE (16:45)
[2018-11-10] MEDS ORDERED: fentaNYL 0.05 MG/ML VIAL IVP ONE (16:45)
[2018-11-10] MEDS ORDERED: ONDANSETRON 4 MG/2 ML VIAL IVP ONE (16:45)
--- NOTE | 2018-11-10 16:50 | NUR ---
pt refuse ekg at this time, dr. rg aware
--- NOTE | 2018-11-10 17:00 | NUR ---
UNABLE TO OBTAIN IV ACCESS, CHARGE NURSE WILL ATTEMPT
--- NOTE | 2018-11-10 17:03 | NUR ---
fentanyl not given, pt states she is allergic, wasted with charge nurse moe, notified and aware of med not given
--- NOTE | 2018-11-10 17:05 | NUR ---
pt refuse lab work at this time
--- NOTE | 2018-11-10 17:10 | NUR ---
URINE CUP GIVEN, PT STATES SHE DOES NOT HAVE TO URINATE
--- NOTE | 2018-11-10 17:45 | NUR ---
PT STATES SHE STILL CANT URINATE
--- NOTE | 2018-11-10 17:53 | NUR ---
conveyor line battery charger, in pt room trying to get an iv line
[2018-11-10] MEDS ORDERED: MORPHINE SULFATE 4 MG/ML SYR IVP ONE (18:10)
[2018-11-10 18:18] LABS: BASOPHILS % (AUTO) 0.6 % (0.0-2.0); EOSINOPHILS % (AUTO) 0.1 % (0.0-4.0); HEMOGLOBIN 10.3 g/dL (12.0-16.0); LYMPHOCYTES # (AUTO) 0.7 K/uL (2.5-16.5); LYMPHOCYTES % (AUTO) 18.4 % (20.5-51.1); MEAN CORPUSCULAR HEMOGLOBIN 22 pg (27-31); MEAN CORPUSCULAR HGB CONC 32 g/dL (33-37); MEAN CORPUSCULAR VOLUME 69.3 fL (80-94); MONOCYTES # (AUTO) 0.3 K/uL (0.8-1.0); NEUTROPHILS # (AUTO) 2.6 K/uL (1.8-7.7); NEUTROPHILS % (AUTO) 71.9 % (42.2-75.2); PLATELET COUNT (AUTO) 506 K/uL (140-450); RED BLOOD CELL COUNT(AUTO) 4.62 MIL/uL (4.20-5.40); RED CELL DISTRIBUTION WIDTH 23.8 % (11.6-13.7); WHITE BLOOD COUNT (AUTO) 3.6 K/uL (4.8-10.8)
[2018-11-10 18:45] LABS: CARBON DIOXIDE 24.4 mmol/L (21-32); CREATININE 0.9 mg/dL (0.6-1.3); POTASSIUM 4.4 mmol/L (3.5-5.1)
[2018-11-10 18:53] LABS: ALBUMIN 3.9 g/dL (3.4-5.0); TOTAL BILIRUBIN 0.2 mg/dL (0.0-1.0)
[2018-11-10] MEDS ORDERED: methylPREDNISolone SS 125 MG in WATER STERILE 2 ML IV ONE (19:00)
--- NOTE | 2018-11-10 19:05 | NUR ---
REPORT GIVEN TO SUE ROUSSEAU
--- NOTE | 2018-11-10 19:19 | NUR ---
Patient discharged with v/s stable. Written and verbal after care instructions given and explained. Patient verbalized understanding. Ambulatory with steady gait. All questions addressed prior to discharge. Advised to follow up with PMD.
[2018-11-10 19:20] VITALS: BP 120/82
[2018-11-10 19:36] LABS: APPEARANCE,URINE CLEAR (CLEAR); BILIRUBIN,URINE NEGATIVE (NEGATIVE); BLOOD, URINE 2+ (NEGATIVE); COLOR,URINE YELLOW (YELLOW); LEUKOCYTE ESTERASE ,URINE NEGATIVE (NEGATIVE); NITRITE, URINE NEGATIVE (NEGATIVE); UGLUCOSE NEGATIVE (NEGATIVE)
[2018-11-10 19:54] LABS: RBC,URINE 0-5 /HPF (0-5); WBC,URINE NONE SEEN /HPF (0-5)
== END 2018-11-10 19:19 | disposition home or self-care (01) ==
LOC: MED 15:44
DX: M25.50 Pain in unspecified joint (principal); R10.84 Generalized abdominal pain; Z86.2 Personal history of diseases of the blood and blood-forming organs and certain disorders involving the immune mechanism; Z79.899 Other long term (current) drug therapy; Z88.6 Allergy status to analgesic agent; Z88.1 Allergy status to other antibiotic agents; Z88.5 Allergy status to narcotic agent; Z88.0 Allergy status to penicillin
CPT/HCPCS: 36415; 71045; 80053; 81001; 81025; 83605; 85025; 85045; 87040; 93005; 96361; 96374; 96375; 99284; J2270; J2405; J2930; J7030; J3010

== ENCOUNTER 2018-11-17 13:02 | Emergency (ER) | payer OTHER ==
[~2018-11-17] VITALS: Ht 162.6 cm; Wt 70.3 kg
[2018-11-17 13:02] VITALS: BP 149/92
--- NOTE | 2018-11-17 13:02 | NUR ---
PATIENT BIB BLS TO ER BED 7.
--- NOTE | 2018-11-17 13:20 | NUR ---
PT IS A 22 Y/O FEMALE WHO PRESENTS TO THE ED C/O ABD PAIN. PER EMS PT WAS DIAGNOSED LAST WEEK WITH C-DIFF AND PAIN IN NOW INCREASING. PT REPORTS 10/10 ACHING LOWER ABD PAIN THAT DOES NOT RADIATE. PT DENIES CP, SOB, N/V/D. PT AWAKE AND ALERT, REQUESTING MEDICATIONS, RR EVEN/UNLABORED. PT REPOSITIONED FOR COMFORT, BED IN LOWEST POSITION. ER MD DR. LOGAN NOTIFIED. WILL CONTINUE TO MONITOR. PMH---SICKLE CELL, LUPUS, FIBROMYALGIA
[2018-11-17] MEDS ORDERED: NACL 0.9% 1,000 ML IV ONE ×2 (13:50→14:55)
--- NOTE | 2018-11-17 14:36 | NUR ---
lab at bedside
[2018-11-17] MEDS ORDERED: MORPHINE SULFATE 4 MG/ML SYR IVP ONE (14:55)
--- NOTE | 2018-11-17 15:41 | NUR ---
pt assisted onto commode
[2018-11-17 15:42] LABS: BASOPHILS # (AUTO) 0.1 K/uL (0.00-0.22); BASOPHILS % (AUTO) 2.8 % (0.0-2.0); EOSINOPHILS % (AUTO) 0.2 % (0.0-4.0); HEMATOCRIT 34.3 % (36-48); HEMOGLOBIN 11.1 g/dL (12.0-16.0); LYMPHOCYTES # (AUTO) 0.9 K/uL (2.5-16.5); LYMPHOCYTES % (AUTO) 38.3 % (20.5-51.1); MEAN CORPUSCULAR HEMOGLOBIN 22 pg (27-31); MEAN CORPUSCULAR HGB CONC 32 g/dL (33-37); MEAN CORPUSCULAR VOLUME 68.8 fL (80-94); MONOCYTES # (AUTO) 0.2 K/uL (0.8-1.0); MONOCYTES % (AUTO) 7.3 % (1.7-9.3); NEUTROPHILS # (AUTO) 1.2 K/uL (1.8-7.7); NEUTROPHILS % (AUTO) 51.4 % (42.2-75.2); PLATELET COUNT (AUTO) 458 K/uL (140-450); RED BLOOD CELL COUNT(AUTO) 4.98 MIL/uL (4.20-5.40); RED CELL DISTRIBUTION WIDTH 24.7 % (11.6-13.7); WHITE BLOOD COUNT (AUTO) 2.4 K/uL (4.8-10.8)
--- NOTE | 2018-11-17 15:45 | NUR ---
LAB UNABLE TO DRAW BLOOD, ATTEMPTED TWICE
[2018-11-17 15:52] LABS: ANION GAP 16.1 (8-16); CARBON DIOXIDE 23.1 mmol/L (21-32); CREATININE 0.6 mg/dL (0.6-1.3); POTASSIUM 4.2 mmol/L (3.5-5.1)
[2018-11-17 15:58] LABS: ALBUMIN 3.6 g/dL (3.4-5.0); TOTAL BILIRUBIN 0.2 mg/dL (0.0-1.0)
--- NOTE | 2018-11-17 16:18 | NUR ---
PT SITTING IN BED, VSS AT THIS TIME, AA0X4.
--- NOTE | 2018-11-17 16:44 | NUR ---
PTS IV VERY POSITIONAL, PUT NACL AT 100 MLS/HR ON PUMP
--- NOTE | 2018-11-17 17:12 | NUR ---
PT ASKING FOR MORE PAIN MEDICATIONS, NOTIFIED AND DOES NOT WISH TO GIVE MORE PAIN MEDICATIONS
[2018-11-17 17:43] VITALS: BP 146/99
== END 2018-11-17 17:45 | disposition home or self-care (01) ==
LOC: MED 13:02
DX: M25.50 Pain in unspecified joint (principal); R10.30 Lower abdominal pain, unspecified; R19.7 Diarrhea, unspecified; R11.2 Nausea with vomiting, unspecified; M79.7 Fibromyalgia; M32.9 Systemic lupus erythematosus, unspecified; Z79.2 Long term (current) use of antibiotics; Z79.891 Long term (current) use of opiate analgesic; Z79.899 Other long term (current) drug therapy; Z88.0 Allergy status to penicillin; Z88.6 Allergy status to analgesic agent; Z88.1 Allergy status to other antibiotic agents; Z88.8 Allergy status to other drugs, medicaments and biological substances
CPT/HCPCS: 36415; 80053; 85025; 85045; 96361; 96374; 99283; J2270; J7030

== ENCOUNTER 2018-11-25 18:06 | Emergency (ER) | payer OTHER ==
[~2018-11-25] VITALS: Ht 165.1 cm; Wt 71.7 kg
[2018-11-25 18:11] VITALS: BP 130/80
--- NOTE | 2018-11-25 18:11 | NUR ---
PATIENT TO BED #10
--- NOTE | 2018-11-25 18:20 | NUR ---
NO NAUSEA/VOMITING. NO CHEST PAIN, NO DIZZINESS. HX:FIBROMYALGIA,SICKLE CELL. PER PATIENT TAKING SAME MEDS.LIKE DILAUDID,GABAPENTIN,SEROQUEL . DENIES N/V/D; SKIN IS PINK/WARM/DRY; AAOX4 WITH EVEN AND STEADY GAIT; LUNGS CLEAR BL; HR EVEN AND REGULAR; PT DENIES ANY FEVER, CP, SOB, OR COUGH AT THIS TIME; PATIENT STATES PAIN OF 10/10 AT THIS TIME; VSS; PATIENT POSITIONED FOR COMFORT; HOB ELEVATED; BEDRAILS UP X2; BED DOWN. ER MD MADE AWARE OF PT STATUS.
[2018-11-25] MEDS ORDERED: NACL 0.9% 1,000 ML IV ONE (18:35)
[2018-11-25] MEDS ORDERED: LORazepam 2 MG/ML VIAL IM ONE (19:05)
--- NOTE | 2018-11-25 19:05 | NUR ---
PT HAD ANIETRY EPISODE, PT STATED SHE CAN NOT BREATH, GIVE PT ON O2 NC 2L/MIN, O2 SATS 98%, NOTIFIED DR. TIMMONS Addendum: 11/25/18 at 1916 by STEVE PT ON BEDSIDE MONITOR SHOWS ST 125S. TRIP OWENS MADE AWARE.
--- NOTE | 2018-11-25 19:10 | NUR ---
ENDORSED CARE TO PM NURSE JANEL ROUSSEAU.
--- NOTE | 2018-11-25 19:25 | NUR ---
PT YELLING AND SCREAMING. PT WAS ASKED NOT TO SCREAM AND YELL. PT NOT BEING COOPERATIVE. PT CONTINUES TO YELL AND SCREAM. PT WAS MEDICATED AND STILL CONTINUES TO YELL AND SCREAM. BEDSIDE NURSE HAS BEEN IN TO ASSESS PT, PT BEING UNCOOPERATIVE AND CONTINUES TO YELL AND SCREAM.
[2018-11-25] MEDS ORDERED: MORPHINE SULFATE 4 MG/ML SYR IM ONE ×2 (19:30→20:40)
--- NOTE | 2018-11-25 19:30 | NUR ---
DR MARTINEZ AT BEDSIDE FOR EVALUATION OF PT.
--- NOTE | 2018-11-25 19:32 | NUR ---
PT WAS YELLING UNCONTROLLED,REFUSED ALL VITALS, TOOK OFF ALL VITAL MONITOR, GOT OUT OF BED, AND WALKED AROUND AND THEN NELT TO THE FLOOR. EMT AND RN HELPED PT BACK INTO BED. MEDICATION IAS TO BE ADMINISTERED. ER MD MADE AWARE.
--- NOTE | 2018-11-25 19:34 | NUR ---
RN AT BEDSIDE TO MEDICATE PT WITH MORPHINE.
--- NOTE | 2018-11-25 19:55 | NUR ---
PT SITTING UP IN BED, PT IS CALM AND RESTING. COMFORT MEASURES OFFERED, PT TOLERATED WELL.
--- NOTE | 2018-11-25 20:09 | NUR ---
PT IS SITTING UP IN BED QUIETLY ON HER CELL PHONE. PT IS RESTING IN BED. VSS
--- NOTE | 2018-11-25 20:25 | NUR ---
PT AMBULATED TO THE RESTROOM WITH MINIMAL ASSISTANCE. PT TOLERATED WELL.
--- NOTE | 2018-11-25 20:35 | NUR ---
TRIP OWENS AT PT BEDSIDE.
--- NOTE | 2018-11-25 20:40 | NUR ---
PT PAIN LEVEL HAS DECREASED TO 8/10 AT THIS TIME. ER MD MADE AWARE OF STATUS.
--- NOTE | 2018-11-25 20:45 | NUR ---
GAVE PAIN MEDICATION, PT TOLERATED WELL. PT STATED HER PAIN LEVEL IS 7/10 AT THIS TIME. ER MD MADE AWARE.
[2018-11-25 21:02] VITALS: BP 130/80
== END 2018-11-25 21:02 | disposition home or self-care (01) ==
LOC: MED 18:06
DX: M79.10 Myalgia, unspecified site (principal); M06.9 Rheumatoid arthritis, unspecified; M32.9 Systemic lupus erythematosus, unspecified; Z79.2 Long term (current) use of antibiotics; Z79.891 Long term (current) use of opiate analgesic; Z79.899 Other long term (current) drug therapy; Z88.6 Allergy status to analgesic agent; Z88.1 Allergy status to other antibiotic agents; Z88.0 Allergy status to penicillin; Z88.8 Allergy status to other drugs, medicaments and biological substances
CPT/HCPCS: 81002; 81025; 96372; 96374; 99283; J2060; J2270

== ENCOUNTER 2019-01-06 07:17 | Emergency (ER) | payer MEDICAID, OTHER ==
[~2019-01-06] VITALS: Ht 165.1 cm; Wt 71.2 kg
[2019-01-06 07:22] VITALS: BP 144/96
--- NOTE | 2019-01-06 07:27 | NUR ---
PATIENT AMBULATED TO BED 12.
--- NOTE | 2019-01-06 07:30 | NUR ---
23 Y FEMALE BIB SELF C/O ABD PAIN X 3 DAYS. PAIN 9/10. +NAUSEA. -VOMITING. C/O DIARRHEA. LAST BM TODAY. ABDOMEN SOFT AND ROUND. BOWEL SOUNDS ACTIVE IN ALL 4 QUADRANTS. PT TACHY AT 115. AA0X4. BED IS DOWN, LOCKED, BED RAIL X 1, ERMD TO SEE PT. MED HX: LUPUS, MYALGIA, SICKLE CELL ANEMIA, CHRONIC PAIN, LUPUS
--- NOTE | 2019-01-06 07:39 | NUR ---
DR HARDY AT BEDSIDE
[2019-01-06] MEDS ORDERED: PROMETHAZINE 25 MG/ML VIAL IM ONE (07:45)
[2019-01-06] MEDS ORDERED: MORPHINE SULFATE 4 MG/ML SYR IM ONE (07:45)
--- NOTE | 2019-01-06 07:58 | NUR ---
LAB AT BEDSIDE
[2019-01-06] MEDS ORDERED: MORPHINE SULFATE 2 MG/ML SYR ONE (08:05)
--- NOTE | 2019-01-06 08:06 | NUR ---
MORPHINE AND PROMETHAZINE ADMINISTERED IM. PT TOLERATED WELL.
[2019-01-06] MEDS ORDERED: HYDR200T5 PO (08:24)
[2019-01-06 08:28] LABS: ANION GAP 13.1 (8-16); CARBON DIOXIDE 23.6 mmol/L (21-32); CREATININE 0.7 mg/dL (0.6-1.3); POTASSIUM 3.7 mmol/L (3.5-5.1)
[2019-01-06 08:31] LABS: HEMATOCRIT 27.8 % (36-48); HEMOGLOBIN 9.1 g/dL (12.0-16.0); MEAN CORPUSCULAR HEMOGLOBIN 22 pg (27-31); MEAN CORPUSCULAR HGB CONC 33 g/dL (33-37); RED BLOOD CELL COUNT(AUTO) 4.21 MIL/uL (4.20-5.40); RED CELL DISTRIBUTION WIDTH 21.7 % (11.6-13.7)
[2019-01-06 08:34] LABS: ALBUMIN 3.4 g/dL (3.4-5.0); TOTAL BILIRUBIN 0.2 mg/dL (0.0-1.0)
--- NOTE | 2019-01-06 08:38 | NUR ---
PT PAIN 05/19, DR HARDY NOTIFIED.
--- NOTE | 2019-01-06 08:39 | NUR ---
PT ON HER PHONE. IN BED. PT TACHY AT 102. BP 136/102
[2019-01-06 08:44] LABS: WHITE BLOOD COUNT (AUTO) 1.9 K/uL (4.8-10.8)
[2019-01-06 08:45] LABS: LYMPHOCYTES % (MANUAL) 16 % (20-46); MONOCYTES % (MANUAL) 7 % (5-12); PLATELET COUNT (AUTO) 538 K/uL (140-450)
--- NOTE | 2019-01-06 08:46 | NUR ---
CRITICAL LAB REPORTED BY NAOMY. WBC 1.9
--- NOTE | 2019-01-06 09:20 | NUR ---
RE-EVALUATING PT
[2019-01-06 09:29] VITALS: BP 131/98
--- NOTE | 2019-01-06 09:29 | NUR ---
Patient discharged with v/s stable. Written and verbal after care instructions given and explained. Patient alert, oriented and verbalized understanding of instructions. Ambulatory with steady gait. All questions addressed prior to discharge. ID band removed. Patient advised to follow up with PMD. Rx of LOMOTIL, ZOFRAN given. Patient educated on indication of medication including possible reaction and side effects. Opportunity to ask questions provided and answered. TP GIVEN COPY OF LAB RESULTS TO SHOW PCP REGARDING LOW WBC.
== END 2019-01-06 09:29 | disposition home or self-care (01) ==
LOC: MED 07:17
DX: M32.9 Systemic lupus erythematosus, unspecified (principal); D72.819 Decreased white blood cell count, unspecified; R19.7 Diarrhea, unspecified; Z79.899 Other long term (current) drug therapy; Z88.0 Allergy status to penicillin; Z88.6 Allergy status to analgesic agent; Z88.1 Allergy status to other antibiotic agents; Z88.8 Allergy status to other drugs, medicaments and biological substances; Z79.891 Long term (current) use of opiate analgesic
CPT/HCPCS: 36415; 80053; 81002; 81025; 85025; 85651; 96372; 99283; J2270; J2550

== ENCOUNTER 2019-01-07 07:49 | Emergency (ER) | payer MEDICAID ==
[~2019-01-07] VITALS: Ht 165.1 cm; Wt 71.7 kg
[2019-01-07 08:08] VITALS: BP 161/97
--- NOTE | 2019-01-07 08:19 | NUR ---
BIB SELF. AAO X4 C/O JOINT PAIN, L ARM SWELLING X 2 DAYS, ABDOMINAL PAIN, N/V X TODAY, MID CHEST PAIN 8/10 X 2 DAYS. DENIES TRAUMA OR INJURY TO L ARM, PAIN 9/10. DENIES FEVER, CHILLS, SOB, HEMATURIA. PT PLACED ON FULL SPEECH THERAPIST. HOB UP. BED SIDE RAILS UP X1. ON LOW BED POSITION, LOCKED. ER MADE AWARE OF PT STATUS.
--- NOTE | 2019-01-07 08:19 | NUR ---
PT AMBULATED TO BED 1
[2019-01-07] MEDS ORDERED: PROMETHAZINE 25 MG/ML VIAL IM ONE (09:10)
[2019-01-07] MEDS ORDERED: MORPHINE SULFATE 4 MG/ML SYR IM ONE (09:10)
--- NOTE | 2019-01-07 09:10 | NUR ---
DR ROWLAND AT BEDSIDE FOR PT EVALUATION
--- NOTE | 2019-01-07 09:35 | NUR ---
IM MEDICATIONS GIVEN ORDERED. PT REQUESTED FOR ONLY R DELTOID TO BE USED. PT TOLERATED WELL.
[2019-01-07 10:07] VITALS: BP 145/92
== END 2019-01-07 10:07 | disposition home or self-care (01) ==
LOC: MED 07:49
DX: M25.50 Pain in unspecified joint (principal); G89.29 Other chronic pain; M79.10 Myalgia, unspecified site; F11.20 Opioid dependence, uncomplicated; Z79.899 Other long term (current) drug therapy; Z88.0 Allergy status to penicillin; Z88.1 Allergy status to other antibiotic agents; Z88.6 Allergy status to analgesic agent; Z88.8 Allergy status to other drugs, medicaments and biological substances
CPT/HCPCS: 81002; 81025; 96372; 99283; J2270; J2550

== ENCOUNTER 2020-04-07 17:20 | Emergency (ER) | payer MEDICAID ==
[~2020-04-07] VITALS: Ht 165.1 cm; Wt 71.7 kg
[~2020-04-07 17:20] MED LIST changes: -DOCU-299 PO; -DOXY100C9 PO; -LABE300T5 PO; -LACT10CA1 PO
[2020-04-07 17:25] VITALS: BP 126/81
--- NOTE | 2020-04-07 17:39 | NUR ---
24 y/o female from home c/o joint pain, N/V/D, and lower abd pain x 2 days. Pt states 10/10 aching to generalized body. Mutiple episodes of vomiting/diarrhea today. Abd soft, flat, slightly tender to palp. Pt c/o increased pain with ambulation/movement. Positioned for comfort, HOB elevated. Denies SOB/cough. VSS medhx: sickle cell, Lupus, Rhumatoid arthritis, Fibromyalgia
--- NOTE | 2020-04-07 17:54 | NUR ---
Dr Martinez at bedside examining pt
[2020-04-07] MEDS ORDERED: diphenhydrAMINE 50 MG/ML VIAL IM ONE (18:15)
[2020-04-07] MEDS ORDERED: fentaNYL citrate 0.05 MG/ML VIAL IM ONE (18:15)
--- NOTE | 2020-04-07 18:42 | NUR ---
Resting in bed, awake on cell phone. RR even and unlabored remains on bedside monitor. VSS
[2020-04-07 18:49] VITALS: BP 121/80
--- NOTE | 2020-04-07 18:49 | NUR ---
Patient discharged with v/s stable. Written and verbal after care instructions given and explained. Patient alert, oriented and verbalized understanding of instructions. Ambulatory with steady gait. All questions addressed prior to discharge. ID band removed. Patient advised to follow up with PMD. Opportunity to ask questions provided and answered.
== END 2020-04-07 18:49 | disposition home or self-care (01) ==
LOC: MED 17:20
DX: D57.1 Sickle-cell disease without crisis (principal); M06.9 Rheumatoid arthritis, unspecified; M79.7 Fibromyalgia; Z79.899 Other long term (current) drug therapy; Z79.84 Long term (current) use of oral hypoglycemic drugs; Z88.6 Allergy status to analgesic agent; Z88.1 Allergy status to other antibiotic agents; Z88.0 Allergy status to penicillin; Z88.8 Allergy status to other drugs, medicaments and biological substances
CPT/HCPCS: 96372; 99284; J1200; J3010

== ENCOUNTER 2020-04-20 20:20 | Inpatient (IN) | payer MEDICAID ==
[~2020-04-20] VITALS: Ht 162.6 cm; Wt 59.9 kg
[2020-04-20 20:21] VITALS: BP 156/86
--- NOTE | 2020-04-20 20:21 | NUR ---
PT TAKEN TO BED 6
--- NOTE | 2020-04-20 20:23 | NUR ---
Dr. Anderson examining patient.
[2020-04-20] MEDS ORDERED: FAMOTIDINE 20 MG/2 ML VIAL IVP ONE (20:25)
[2020-04-20] MEDS ORDERED: EPINEPHrine 1:1000 - 1 MG/ML AMP IM ONE (20:25)
[2020-04-20] MEDS ORDERED: methylPREDNISolone SS 125 MG/2 ML VIAL IVP ONE (20:25)
[2020-04-20] MEDS ORDERED: diphenhydrAMINE 50 MG/ML VIAL IVP ONE (20:25)
[2020-04-20] MEDS ORDERED: methylPREDNISolone SS 125 MG/2 ML VIAL IM ONE (20:35)
[2020-04-20] MEDS ORDERED: diphenhydrAMINE 50 MG/ML VIAL IM ONE ×2 (20:35→23:35)
--- NOTE | 2020-04-20 20:48 | NUR ---
24 Y/O FEMALE BIB SELF FOR ALLERGIC REACTION AFTER EATING A SOUR CANDY. PATIENT STATES THAT THIS HAS HAPPENED BEFORE. A/OX4; RR 20; 98 SPO2% ON RA; DENIES N/V/D;STEADY GAIT; CLEAR RESPIRATIONS ERMD MADE AWARE OF STATUS. SIDE RAILSX1 WILL CONTINUE TO MONITOR
--- NOTE | 2020-04-20 21:09 | NUR ---
ERMD AT BEDSIDE EVALUATING PATIENT.
[2020-04-20] MEDS ORDERED: FAMOTIDINE 20 MG TAB PO ONE (21:25)
--- NOTE | 2020-04-20 23:10 | NUR ---
RECEIVED PATIENT VIA WHEELCHAIR FROM ER IN STABLE CONDITION FOR CONTINUITY OF CARE. AAOX4. RESPIRATIONS EVEN, UNLABORED. SKIN WARM, DRY AND INTACT. NO C/O PAIN. NO S/S ACUTE DISTRESS. ABDOMEN SOFT, NONTENDER, NONDISTENDED. BOWEL SOUNDS ACTIVE X4 QUADRANTS. CONTINENT OF B/B. ABLE TO AMBULATE WELL. MRSA SCREEN COMPLETED. PATIENT ORIENTED TO CALL LIGHT/STAFF/ROOM. PLAN OF CARE DISCUSSED WITH PATIENT. CALL LIGHT IN REACH.
--- NOTE | 2020-04-20 23:15 | NUR ---
Patient will be admitted to care of DR. VERA . Admited to Med/Surg. Will go to room 110 B. Belongings list completed. Report to ONELIA BELLA .
[2020-04-20] MEDS: NACL 0.9% 1,000 ML IV SCH (23:36)
[2020-04-20] MEDS ORDERED: ONDANSETRON 4 MG/2 ML VIAL IM/IVP PRN (23:40)
[2020-04-20] MEDS ORDERED: ACETAMINOPHEN 325 MG TAB PO PRN (23:40)
[2020-04-20] MEDS ORDERED: POTASSIUM CHLORIDE 10 MEQ TABER PO PRN (23:40)
[2020-04-20] MEDS ORDERED: DOCUSATE SODIUM 100 MG GELCAP PO PRN (23:40)
[2020-04-20] MEDS ORDERED: HYDROcodone/APAP 7.5/325 MG 1 TAB PO PRN (23:40)
[2020-04-21 00:22] LABS: BARBITURATE, URINE NEGATIVE ng/ml (NEG <=200); BENZODIAZEPINE, URINE NEGATIVE ng/mL (NEG <=200); CANNABINOID, URINE POSITIVE ng/mL (NEG <=50); COCAINE, URINE NEGATIVE ng/mL (NEG <=300); OPIATE, URINE POSITIVE ng/mL (NEG <=2000); PHENCYCLIDINE SCREEN,URINE NEGATIVE ng/mL (NEG <=25)
[2020-04-21 00:42] VITALS: BP 140/92
--- NOTE | 2020-04-21 01:00 | NUR ---
MADE ROUNDS. PATIENT IS ASLEEP AND IN STABLE CONDITION. CALL LIGHT WITHIN REACH.
[2020-04-21] MEDS: LORazepam 2 MG/ML VIAL IM/IVP PRN ×2 (02:49→20:29)
--- NOTE | 2020-04-21 02:55 | NUR ---
PATIENT STATED SHE HAS BEEN SCRATCHING HER HEAD AND NOW IT IS BLEEDING. OLD SORES FOUND ON TOP OF HER HEAD. ENCOURAGED PATIENT NOT TO SCRATCH HER HEAD. GAVE HER ICE PACKS TO RELIEVE ITCHING. ADMINISTERED ATIVAN FOR ANXIETY. CALL LIGHT WITHIN REACH.
--- NOTE | 2020-04-21 03:11 | NUR ---
PATIENT REQUESTED A SNACK. EATING ALISSA CRACKERS AND DRINKING MILK, TOLERATING. NO DIFFICULTY SWALLOWING.
[2020-04-21] MEDS: methylPREDNISolone SS 125 MG/2 ML VIAL IVP SCH ×3 (04:26→20:37)
--- NOTE | 2020-04-21 05:00 | NUR ---
PATIENT RESTING IN BED QUIETLY WATCHING TV. NO S/S ACUTE DISTRESS. CALL LIGHT WITHIN REACH.
--- NOTE | 2020-04-21 07:40 | NUR ---
RECEIVED PT FROM ASSEMBLY DETAILER NURSE, TANMAY, PT IS AWAKE AND SEATED ON THE BED WITH NO IV LINE NOTED BECAUSE PT IS VERY INDECISIVE AND NOT COOPERATIVE, AOX4 ON ROOM AIR, AND NO SIGN OF DISTRESS NOTED.
[2020-04-21 07:49] LABS: ALBUMIN 2.9 g/dL (3.4-5.0); ANION GAP 16.5 (8-16); CARBON DIOXIDE 20.7 mmol/L (21-32); CREATININE 0.8 mg/dL (0.6-1.3); FREE T4 (FREE THYROXINE) 1.06 ng/dL (0.76-1.46); MAGNESIUM 1.9 mg/dL (1.8-2.4); PHOSPHORUS 3.5 mg/dL (2.5-4.9); POTASSIUM 4.2 mmol/L (3.5-5.1); THYROID STIMULATING HORMONE 0.33 uIU/mL (0.34-3.74); TOTAL BILIRUBIN 0.2 mg/dL (0.0-1.0)
--- NOTE | 2020-04-21 07:58 | NUR ---
PT IS VERY ANXIOUS AND REFUSED TO TAKE THE ORAL BENADRYL, CALLED DR. VERA AND INFORMED OF PT'S REFUSAL FOR THE ORAL BENADRYL, MADE A TELEPHONE ORDER TO GIVE PT 25MG BENADRYL IM X 1 DOSE NOW. READ BACK AND VERIFIED AND WILL CARRY OUT TELEPHONE ORDER.
[2020-04-21 08:00] VITALS: BP 146/96
[2020-04-21] MEDS ORDERED: diphenhydrAMINE 50 MG/ML VIAL IM SCH ×2 (08:07→14:27)
--- NOTE | 2020-04-21 08:17 | NUR ---
PT WAS GIVEN BENADRYL IM ROUTE NOW X 1 DOSE, AND REFUSED TO TAKE THE SCHEDULED PEPCID ORAL,NO SIGN OF DISTRESS NOTED AND WILL MONITOR PT.
--- NOTE | 2020-04-21 08:50 | NUR ---
PATIENT HAS BEEN SCREENED AND CATEGORIZED MODERATE NUTRITION RISK. PATIENT WILL BE SEEN WITHIN 3-5 DAYS OF ADMISSION. 04/23/2020-04/25/[address]
[2020-04-21] MEDS ORDERED: FAMOTIDINE 20 MG TAB PO SCH (09:00)
[2020-04-21] MEDS ORDERED: HYDROmorphone 1 MG/ML AMP IM SCH (11:01)
--- NOTE | 2020-04-21 13:53 | NUR ---
PT REFUSED TO TAKE THE SOLU-MEDROL NOW INSTEAD IS ASKING FOR A BENADRYL IVP. WILL INFORM
--- NOTE | 2020-04-21 14:16 | NUR ---
CALLED DR. VERA NOW AND INFORMED THAT PT IS GETTING ANXIOUS AND MAD AND WANTS TO GET A BENADRYL IV AND DOES NOT WANT TO GET THE TABLET IN HER EMAR PROFILE AND MD SAID TO GIVE A ONE TIME DOSE AND LET THE PT KNOW THAT SHE NEEDS TO HAVE A PERIPHERAL LINE INSERTED. WILL EXPLAIN AND INFORM THE PT.
--- NOTE | 2020-04-21 15:22 | NUR ---
SPOKE TO DR. VERA AND THAT PT AGREED TO HAVE AN IV LINE AND DR. VERA MADE A TELEPHONE ORDER TO GIVE PT BENADRYL 25MG IVP Q6H PRN FOR ALLERGIC REACTION, ORDER READ BACK AND VERIFIED AND WILL MONITOR PT.
[2020-04-21] MEDS ORDERED: diphenhydrAMINE 50 MG/ML VIAL IVP PRN (15:25)
[2020-04-21 16:00] VITALS: BP 142/104
[2020-04-21] MEDS ORDERED: HYDROmorphone 1 MG/ML AMP IVP SCH (16:12)
--- NOTE | 2020-04-21 16:18 | NUR ---
PT WAS GIVEN IV PUSH PAIN MEDICATION NOW, BP IS 142/104, PULSE IS 98, O2 SATURATION IS AT 98%, RESPIRATION IS 18/MIN, WILL MONITOR PT.
[2020-04-21] MEDS: NACL 0.9% 1,000 ML IV SCH (16:46)
--- NOTE | 2020-04-21 19:45 | NUR ---
ENDORSED PT TO [facility]IST[facility] NURSE FOR CONTINUITY OF CARE.
--- NOTE | 2020-04-21 20:45 | NUR ---
PT IN BED AOX4 SKIN INTACT WITH 24G ON R WRIST. PT RUNNING NORMAL SALINE AT 60MLS/HR. PT SITTING UP IN BED WATCHING TV. REPORT GIVEN BY MOIZ [facility]SE[facility] NURSE FOR CONTINUITY OF CARE MOIZ REPORTED THAT PRIMARY MD WILL NOT ORDER MORE IVP DILAUDID PER PT REQUEST. PT IS AOX4 AND AMBULATORY. ALL UNIVERSAL FALLS PRECAUTIONS IN PLACE. Addendum: 04/21/20 at 2241 by Winifred Jacobson RN 1944
[2020-04-21] MEDS ORDERED: HYDROmorphone 2 MG TAB PO PRN (21:00)
--- NOTE | 2020-04-21 21:00 | NUR ---
PT REQUESTING IVP DILAUDID, PT APPEARS CLEARLY AGITATED DUE TO NOT RECEIVING THE IVP DILAUDID AND BENADRYL. TOLD PT SHE MAY RECEIVE THE ORDERED IVP BENADRYL DUE TO PT ITCHING HERSELF AND THE ATIVAN DUE TO PT BEING AGITATED. THAT THE DOCTOR ALREADY HAS ORDERED PRN, HOWEVER PER REPORT MD VERA WILL NOT APPROVE OF IVP DILAUDID. PT ASKED IF WE COULD SPEAK TO HIM AGAIN AND ASK FOR THE DILAUDID. ASSURED PT THAT WILL SPEAK TO COA REGARDING AN ALTERNATE MEDICATION FOR PAIN. PT WAS GIVEN REQUESTED ATIVAN AND BENADRYL IVP ORDERED.
--- NOTE | 2020-04-21 22:00 | NUR ---
SPOKE WITH MD VERA AND WAS ABLE TO RECONCILE HOME MEDS INCLUDING PT PRN ORDER FOR DILAUDID, HE SAID NOT TO GIVEN ATIVAN TOGETHER WITH DILAUDID BUT TO SPACE 3 HRS APART. HE DISCONTINUED XANAX , HE DID NOT WANT TO TAKE WITH ATIVAN AND DILAUDID PREDNISONE WAS ALSO D/CD AT THIS TIME. SEROQUEL XR CONTINUED FOR HS SLEEPING.
--- NOTE | 2020-04-21 22:15 | NUR ---
WHEN CALLED MD VERA REGARDING PT REQUEST FOR PAIN MEDS, MADE AWARE THAT PT REFUSED SOLUMEDROL.
--- NOTE | 2020-04-21 22:30 | NUR ---
SPOKE WITH PT REGARDING RECONCILED MEDS, PT UNHAPPY THAT DILAUDID IVP WAS NOT CONTINUED AND SHE CONTINUED TO EXPLAIN THAT SHE WAS IN SEVERE PAIN, EXPLAINED TO PT AGAIN THAT MD VERA IS NOT GOING TO ORDER IVP DILAUDID AND THAT XANAX WAS D/CD AT THIS TIME.BUT THAT HER SEROQUEL WAS CONTINUED. PT SAID THAT IS NO GOOD AND THAT SHE TAKES XANAX ABDIAZIZ HER SEROQUEL AT NIGHT. PT WANTS TO TRANSFER OUT TO [facility]. SHE SAID THEY HAVE HER RECORDS. MERCHANDISING STOCK ASSOCIATE BROUGHT UP TO SPEAK WITH HER.
--- NOTE | 2020-04-21 23:10 | NUR ---
PT DECIDED TO LEAVE AMA BECAUSE SHE FELT THAT SHE WAS NOT GETTING THE MEDICATION FOR PAIN. TOLD PT THAT SHE MAY HAVE HER PO DILAUDID AT 1130, PT SAID IM SORRY IM IN PAIN NOW, IM GOING TO LEAVE TO GO TO ANOTHER HOSPITAL. PT SIGNED AMA PAPERS, RISKS AND BENEFITS EXPLAINED, IV TAKEN OUT, AND NAME BAND CUT OFF. PT ESCORTED OUT BY SECURITY, SHE SAID HER LIFT WAS THER TO TAKE HER. PT LEFT WITH HER CLOTHES AND BELONGINGS IN HAND. CHARGE AND RESTORATION TECHNICIAN AWARE, MD VERA WAS ALSO CONTACTED AND MADE AWARE OF DEPARTURE.
[2020-04-22] MEDS ORDERED: HYDROXYCHLOROQUINE 200 MG TAB PO SCH (09:00)
[2020-04-22] MEDS ORDERED: QUEtiapine FUMARATE 100 MG TAB PO SCH (21:00)
== END 2020-04-21 23:10 | disposition left against medical advice (07) | DRG 811 ==
LOC: MED 20:20 → MTU 22:35
PROVIDERS: ADMIT Emergency Medicine; ATTEND Emergency Medicine
DX: T78.3XXA Angioneurotic edema, initial encounter (principal); X58.XXXA Exposure to other specified factors, initial encounter; D57.1 Sickle-cell disease without crisis; M06.9 Rheumatoid arthritis, unspecified; M79.7 Fibromyalgia; M32.9 Systemic lupus erythematosus, unspecified; S00.01XA Abrasion of scalp, initial encounter; Y93.89 Activity, other specified; Y92.89 Other specified places as the place of occurrence of the external cause; Y99.8 Other external cause status; Z88.6 Allergy status to analgesic agent; Z88.1 Allergy status to other antibiotic agents; Z88.5 Allergy status to narcotic agent; Z88.8 Allergy status to other drugs, medicaments and biological substances
CPT/HCPCS: 36415; 80053; 80305; 81025; 83735; 84100; 84439; 84443; 87081; 96372; 99291; J0171; J1170; J1200; J2060; J2930; J3490; J7030; Q0163

== ENCOUNTER 2020-08-15 06:25 | Emergency (ER) | payer MEDICAID ==
[~2020-08-15] VITALS: Ht 165.1 cm; Wt 63.5 kg
[~2020-08-15 06:25] MED LIST changes: -ALPR0.5T2 PO; -FERR324T11 PO; -GABA300C PO; -LOV40I SUBQ; -PRED20TA5 PO
[2020-08-15 06:34] VITALS: BP 139/84
[2020-08-15 06:45] VITALS: BP 139/84
--- NOTE | 2020-08-15 06:47 | NUR ---
See complete assessment.
--- NOTE | 2020-08-15 07:30 | NUR ---
PT REFUSING TO HAVE LAB DRAWN BY LAB. PT WANTS HER PORT TO BE ACCESSED. PT ADVISED THERE IS NO NURSE AVAILABLE OR SPACE AT THIS TIME IN ED FOR THAT. PT VERBALIZED UNDERSTANDING.
--- NOTE | 2020-08-15 08:12 | NUR ---
COVID JEANCARLOS SWAB COLLECTED.
--- NOTE | 2020-08-15 11:31 | NUR ---
PT SEEN WALKING OUT OF ED LOBBY GETTING INTO CAR.
== END 2020-08-15 11:31 | disposition left against medical advice (07) ==
LOC: MED 06:25
DX: M25.50 Pain in unspecified joint (principal); R11.2 Nausea with vomiting, unspecified; J45.909 Unspecified asthma, uncomplicated; Z20.828 Contact with and (suspected) exposure to other viral communicable diseases; Z98.890 Other specified postprocedural states; Z79.899 Other long term (current) drug therapy; Z88.0 Allergy status to penicillin; Z88.6 Allergy status to analgesic agent; Z88.1 Allergy status to other antibiotic agents; Z88.5 Allergy status to narcotic agent; Z88.8 Allergy status to other drugs, medicaments and biological substances
CPT/HCPCS: 99283

== ENCOUNTER 2020-08-16 04:23 | Emergency (ER) | payer MEDICAID ==
[~2020-08-16] VITALS: Ht 165.1 cm; Wt 68.0 kg
[2020-08-16 04:25] VITALS: BP 104/67
--- NOTE | 2020-08-16 04:28 | NUR ---
TO CHAIR AMBULATORY
[2020-08-16] MEDS ORDERED: NACL 0.9% 1,000 ML IV ONE ×2 (05:10→06:10)
[2020-08-16] MEDS ORDERED: fentaNYL citrate 0.05 MG/ML VIAL IVP ONE ×2 (05:25→06:35)
[2020-08-16] MEDS ORDERED: METOCLOPRAMIDE 10 MG/2 ML INJ VIAL IVP ONE (05:25)
[2020-08-16] MEDS ORDERED: diphenhydrAMINE 50 MG/ML VIAL IVP ONE ×2 (05:25→06:35)
--- NOTE | 2020-08-16 05:29 | NUR ---
PT STATES SHE IS NOT ALLERGIC TO FENTANYL. ALLERGY D/C'D FROM RECORD AT THIS TIME.
--- NOTE | 2020-08-16 05:49 | NUR ---
XR AT BEDSIDE.
--- NOTE | 2020-08-16 05:49 | NUR ---
BLOOD CLLECTED AND SENT TO LAB.
--- NOTE | 2020-08-16 05:57 | NUR ---
PT C/O BODY ACHES X 3 DAYS. 10/10 PAIN AND IS LOCATED ALL OVER THE BODY. VSS. A&O X4. STEADY GAIT. LUNG SOUNDS CLEAR ALL BIALT UPPER LOBES AND DIMINSHED BILAT LOWER LOBES. CAP REFILL < 3. ALERGIES: TORADOL, MORPHINE. PMH: SICKLE CELL, FIBROMYALGIA, LUPUS, RA, MYALGIA.
[2020-08-16 06:13] LABS: BASOPHILS # (AUTO) 0.1 K/uL (0.00-0.22); BASOPHILS % (AUTO) 1.3 % (0.0-2.0); EOSINOPHILS % (AUTO) 0.6 % (0.0-4.0); HEMATOCRIT 25.7 % (36-48); HEMOGLOBIN 8.2 g/dL (12.0-16.0); LYMPHOCYTES # (AUTO) 1.2 K/uL (2.5-16.5); LYMPHOCYTES % (AUTO) 15.8 % (20.5-51.1); MEAN CORPUSCULAR HEMOGLOBIN 25 pg (27-31); MEAN CORPUSCULAR HGB CONC 32 g/dL (33-37); MEAN CORPUSCULAR VOLUME 76.6 fL (80-94); MONOCYTES # (AUTO) 0.4 K/uL (0.8-1.0); NEUTROPHILS # (AUTO) 5.8 K/uL (1.8-7.7); NEUTROPHILS % (AUTO) 77.3 % (42.2-75.2); PLATELET COUNT (AUTO) 239 K/uL (140-450); RED BLOOD CELL COUNT(AUTO) 3.36 MIL/uL (4.20-5.40); RED CELL DISTRIBUTION WIDTH 19.5 % (11.6-13.7); WHITE BLOOD COUNT (AUTO) 7.5 K/uL (4.8-10.8)
[2020-08-16 06:15] LABS: ALBUMIN 2.7 g/dL (3.4-5.0); ANION GAP 9.3 (8-16); CARBON DIOXIDE 27.2 mmol/L (21-32); CREATININE 0.6 mg/dL (0.6-1.3); POTASSIUM 3.5 mmol/L (3.5-5.1); TOTAL BILIRUBIN 0.2 mg/dL (0.0-1.0)
--- NOTE | 2020-08-16 06:45 | NUR ---
PTY C/O THAT BODY PAIN HAS RETURNED TO 10/10. PAIN ONLY DROPPED TO 9/10 AFTER FIRST TIME BEING MEDICATED
[2020-08-16 07:09] VITALS: BP 143/99
--- NOTE | 2020-08-16 07:09 | NUR ---
Patient discharged with v/s stable. Written and verbal after care instructions given and explained. Patient alert, oriented and verbalized understanding of instructions. Ambulatory with steady gait. All questions addressed prior to discharge. ID band removed. Patient advised to follow up with PMD. Rx of norco zofran given. Patient educated on indication of medication including possible reaction and side effects. Opportunity to ask questions provided and answered.
== END 2020-08-16 07:09 | disposition home or self-care (01) ==
LOC: MED 04:23
DX: R07.9 Chest pain, unspecified (principal); M79.10 Myalgia, unspecified site; R11.2 Nausea with vomiting, unspecified; J45.909 Unspecified asthma, uncomplicated; Z79.899 Other long term (current) drug therapy; Z88.0 Allergy status to penicillin; Z88.6 Allergy status to analgesic agent; Z88.1 Allergy status to other antibiotic agents; Z88.5 Allergy status to narcotic agent; Z88.8 Allergy status to other drugs, medicaments and biological substances
CPT/HCPCS: 36415; 71045; 80053; 84484; 85025; 85045; 93005; 96361; 96374; 96375; 96376; 99285; J1200; J2765; J3010; J7030

== ENCOUNTER 2021-02-24 10:28 | Observation (INO) | payer OTHER, SELFPAY ==
[~2021-02-24] VITALS: Ht 165.1 cm; Wt 80.7 kg
--- NOTE | 2021-02-24 10:28 | NUR ---
Patient BIBA BLS, transferred to bed 4. RN evaluating the patient at bedside.
[2021-02-24 10:31] VITALS: BP 124/77
--- NOTE | 2021-02-24 10:32 | NUR ---
25 Y/O FEMALE BIBA FROM [facility] C/O N&V AND GENERALIZED BODY PAIN X2 DAYS. PT HAS NOT BEEN TAKING MEDICATIONS DUE TO EMESIS EPISODES. PT C/O 10/10 SHARP/ACHING PAIN. PT HAD PORT A CATH REMOVED ON R UPPER CHEST X1 MONTH AGO D/T INFECTION, PT NOW HAS SCAR WHERE IT WAS REMOVED. PT A/O X4 WITH EVEN AND UNLABORED RESPIRATIONS. PT IN GOWN, ATTACHED TO CAR SEALER. PT GIVEN EMESIS BAG. PT LAYING IN BED WITH BED IN LOWEST POSITION, BRAKES LOCKED, X1 SIDERAIL UP. PMH: LUPUS, SICKLE CELL DISEASE, ASTHMA MED: GABAPENTIN AND PREDNISONE ALLERGY: PENICILLIN, ASPIRIN, AZITHROMYCIN, BACLOFEN
--- NOTE | 2021-02-24 10:42 | NUR ---
DR COLEMAN AT BEDSIDE EVALUATING PT
[2021-02-24] MEDS ORDERED: HYDROmorphone PFS 2 MG/ML SYR IVP ONE ×3 (10:45→13:40)
[2021-02-24] MEDS ORDERED: ONDANSETRON 4 MG/2 ML VIAL IVP ONE (10:45)
[2021-02-24] MEDS ORDERED: NACL 0.9% 2,000 ML IV ONE (10:45)
--- NOTE | 2021-02-24 10:57 | NUR ---
LAB AT BEDSIDE FOR BLOOD DRAW
[2021-02-24] MEDS ORDERED: methylPREDNISolone SS 125 MG/2 ML VIAL IVP ONE (11:00)
[2021-02-24 11:16] LABS: BASOPHILS % (AUTO) 0.2 % (0.0-2.0); EOSINOPHILS % (AUTO) 1.3 % (0.0-4.0); HEMATOCRIT 29.4 % (36-48); HEMOGLOBIN 9.5 g/dL (12.0-16.0); LYMPHOCYTES # (AUTO) 0.9 K/uL (2.5-16.5); LYMPHOCYTES % (AUTO) 26.9 % (20.5-51.1); MEAN CORPUSCULAR HEMOGLOBIN 23 pg (27-31); MEAN CORPUSCULAR HGB CONC 32 g/dL (33-37); MEAN CORPUSCULAR VOLUME 71.7 fL (80-94); MONOCYTES # (AUTO) 0.4 K/uL (0.8-1.0); MONOCYTES % (AUTO) 12.9 % (1.7-9.3); NEUTROPHILS # (AUTO) 1.9 K/uL (1.8-7.7); NEUTROPHILS % (AUTO) 58.7 % (42.2-75.2); PLATELET COUNT (AUTO) 431 K/uL (140-450); RED BLOOD CELL COUNT(AUTO) 4.11 MIL/uL (4.20-5.40); RED CELL DISTRIBUTION WIDTH 18.5 % (11.6-13.7); WHITE BLOOD COUNT (AUTO) 3.2 K/uL (4.8-10.8)
[2021-02-24 11:27] LABS: PROTHROMBIN TIME 10.4 secs (10.8-13.4)
[2021-02-24 11:32] LABS: ALBUMIN 3.3 g/dL (3.4-5.0); CARBON DIOXIDE 22.7 mmol/L (21-32); CREATININE 0.7 mg/dL (0.6-1.3); TOTAL BILIRUBIN 0.1 mg/dL (0.0-1.0)
[2021-02-24 11:38] LABS: POTASSIUM 2.7 mmol/L (3.5-5.1)
--- NOTE | 2021-02-24 11:52 | NUR ---
PT C/O 10/10 SEVERE PAIN AND REQUESTING FURTHER PAIN MEDS. DR COLEMAN MADE AWARE
[2021-02-24] MEDS ORDERED: KCL 20 MEQ/WATER INJ PREMIX 100 ML IV ONE (12:00)
[2021-02-24] MEDS ORDERED: NACL 0.9% 1,000 ML IV ONE ×2 (13:10)
[2021-02-24] MEDS ORDERED: HYDROmorphone 1 MG/ML AMP ONE (13:38)
--- NOTE | 2021-02-24 13:51 | NUR ---
MAYA ARSHAD SAMPLE COLLECTED AND WALKED TO LAB
[2021-02-24] MEDS ORDERED: diphenhydrAMINE 50 MG/ML VIAL IVP ONE (14:05)
--- NOTE | 2021-02-24 15:45 | NUR ---
PT C/O 05/19 GENERALIZED BODY PAIN AND REQUESTING PAIN MEDS. DR GHOSH MADE AWARE, WAITING ON ORDERS.
[2021-02-24] MEDS ORDERED: DOCUSATE SODIUM 100 MG GELCAP PO PRN (16:25)
[2021-02-24] MEDS ORDERED: LORazepam 2 MG/ML VIAL IM/IVP PRN (16:25)
[2021-02-24] MEDS ORDERED: ONDANSETRON 4 MG/2 ML VIAL IM/IVP PRN (16:25)
[2021-02-24] MEDS ORDERED: ZOLPIDEM 5 MG TAB PO PRN (16:25)
[2021-02-24] MEDS ORDERED: MAG SULF 2000 MG/WATER PREMIX 50 ML IV PRN (16:25)
[2021-02-24] MEDS ORDERED: POTASSIUM CHLORIDE 10 MEQ TABER PO PRN (16:25)
[2021-02-24] MEDS ORDERED: ACETAMINOPHEN 325 MG TAB PO PRN (16:25)
[2021-02-24 16:52] LABS: APPEARANCE,URINE CLEAR (CLEAR); BILIRUBIN,URINE NEGATIVE (NEGATIVE); BLOOD, URINE NEGATIVE (NEGATIVE); COLOR,URINE YELLOW (YELLOW); LEUKOCYTE ESTERASE ,URINE NEGATIVE (NEGATIVE); NITRITE, URINE NEGATIVE (NEGATIVE); UGLUCOSE NEGATIVE (NEGATIVE)
[2021-02-24] MEDS: NACL 0.9% 1,000 ML IV SCH (16:56)
[2021-02-24] MEDS: HYDROmorphone 1 MG/ML AMP IVP PRN ×2 (16:56→22:57)
[2021-02-24 17:04] LABS: BARBITURATE, URINE NEGATIVE ng/ml (NEG <=200); BENZODIAZEPINE, URINE NEGATIVE ng/mL (NEG <=200); CANNABINOID, URINE POSITIVE ng/mL (NEG <=50); COCAINE, URINE NEGATIVE ng/mL (NEG <=300); PHENCYCLIDINE SCREEN,URINE NEGATIVE ng/mL (NEG <=25)
[2021-02-24 17:05] LABS: OPIATE, URINE POSITIVE ng/mL (NEG <=2000)
--- NOTE | 2021-02-24 17:05 | NUR ---
PHARMACY CALLED TO CONFIRM ALLERGY TO MORPHINE. CALLED DR GHOSH TO CONFIRM ALLERGY. PER DR GHOSH, PT HAS BEEN RECEIVING DILAUDID AND IS OKAY TO RECEIVE MORPHINE. MORPHINE ALLERGY REMOVED FROM PTS CHART PER DR GHOSH ORDER.
--- NOTE | 2021-02-24 17:09 | NUR ---
RAD AT BEDSIDE
[2021-02-24 17:12] LABS: MAGNESIUM 1.5 mg/dL (1.8-2.4); PHOSPHORUS 2.8 mg/dL (2.5-4.9); THYROID STIMULATING HORMONE 0.3 uIU/mL (0.34-3.74)
--- NOTE | 2021-02-24 18:30 | NUR ---
PT REQUESTING BED BRANTLEY. PT A/O X4 WITH EVEN AND UNLABORED RESPIRATIONS. PT ON PARISH VISITOR, WILL CONTINUE TO MONITOR.
[2021-02-24 18:40] LABS: RBC,URINE NONE SEEN /HPF (0-5); WBC,URINE 0-5 /HPF (0-5); YEAST,URINE Rare /HPF (None Seen)
--- NOTE | 2021-02-24 19:12 | NUR ---
GAVE REPORT TO MADELINE ROUSSEAU, TRANSFER OF CARE AT THIS TIME.
--- NOTE | 2021-02-24 19:12 | NUR ---
Report received from ONELIA Brown for continuation of patient care at this time.
--- NOTE | 2021-02-24 19:23 | NUR ---
PATIENT SITTING IN BED LOCKED IN LOWEST POSITION, HOB ELEVATED, X2 SIDERAILS UP FOR PATIENT SAFETY. BREATHING EVEN AND UNLABORED. PATIENT CONNECTED TO MONITOR, VSS. NS FLUIDS RUNNING AT 120ML/HR. NAD NOTED, WILL CONTINUE TO MONITOR.
--- NOTE | 2021-02-24 19:27 | NUR ---
Patient reports she is hungry and her sister is bringing her food. Spoke with , per patient is now on regular diet.
--- NOTE | 2021-02-24 20:28 | NUR ---
RECEIVED PHONE REPORT FROM ER NURSE. WAITING PATIENT TO TRANSFER TO UNIT.
--- NOTE | 2021-02-24 20:28 | NUR ---
called report to ONELIA Rhodes. Pt to be transferred to [facility] in approximately 5-10 mins
--- NOTE | 2021-02-24 20:30 | NUR ---
Patient will be admitted to care of DR. GHOSH. Admited to [facility]. Will go to room 116. Belongings list completed. Transfer of care at this time.
[2021-02-24 20:51] VITALS: BP 160/106
--- NOTE | 2021-02-24 20:51 | NUR ---
RECEIVED PATENT FROM ER NURSE FOR CONTINUITY OF CARE. CC N/V AND BODYACHE X2 DAYS. DX LUPUS FLARE, ACUTE PAIN. PATIENT A/A/O X4. RESPIRATORY EVEN AND UNLABORED, ON ROOM AIR, NO SIGN OF DISTRESS NOTED. SKIN WARM, DRY, NON DIAPHORETIC. IV ON LEFT ANKLE 22G, INTACT AND PATENT, IS INFUSING FLUID ORDER. PATIENT COMPLAINS OF GEN PAIN 10/10. DEMANDING PAIN MEDICATION. PATIENT REFUSED TO TAKE MORPHINE. PATIENT STARTS AGITATED, ANXIOUS, YELLING, REFUSED TO CONTINUE ASSESSMENT AND BEING TOUCH. NOTIFY DR CHAMBERLAIN THAT PATIENT IS IN PAIN AND ELEVATED BP, NO NEW PAIN MEDICATION ORDER. HYDRALAZINE 10MG IV X ONCE. WILL FOLLOW ORDER.
[2021-02-24] MEDS ORDERED: QUEtiapine FUMARATE 100 MG TAB PO SCH (21:00)
--- NOTE | 2021-02-24 21:10 | NUR ---
PATIENT REFUSED BLOOD DRAWN.
--- NOTE | 2021-02-24 21:15 | NUR ---
VERBALIZED BACK TO PATIENT THAT DR ORDERED HYDRALAZINE 10MG FOR HER ELEVATED BLOOD PRESSURE AND PAIN MEDICATION AVAILABLE IS MORPHINE. PATIENT CONTINUES REFUSED TO TAKE HYDRALAZINE AND MORPHINE. EDUCATED THE RISK OF REFUSED MEDICATION. PATIENT CONTINUES TO REFUSED. BEING ANXIOUS, AGITATED, YELLING. REFUSED TO HELP WITH BED BRANTLEY. PATIENT WANTS TO TALK WITH CHARGE NURSE. WILL NOTIFY CHARGE NURSE SITUATION.
--- NOTE | 2021-02-24 21:26 | NUR ---
PER CHARGE NURSE, PATIENT STILL AGITATED AND REFUSED TO TALK WITH HER, PATIENT STATES "LEAVE ME A LONE". NO SIGN OF RESPIRATORY DISTRESS. WILL CONTINUE ASSESSMENT WHEN PATIENT ABLE TO CALM AND WILLING TO TALK.
[2021-02-24] MEDS: METHYL IVP SCH (22:14)
[2021-02-24] MEDS ORDERED: hydrALAZINE 20 MG/ML VIAL IVP ONE (22:40)
--- NOTE | 2021-02-24 22:57 | NUR ---
BP 152/92, HR 102. PRN DILAUDID 0.5MG GIVEN WITH EDUCATION, PATIENT VERBALIZED UNDERSTANDING. PATIENT IS CALM AND COOPERATIVE. MRSA COLLECTED. ORIENT TO ROOM AND UNIT. PLAN OF CARE DISCUSSED, PATIENT VERBALIZED UNDERSTANDING. NO SIGN OF DISTRESS NOTED. CALL LIGHT WITHIN REACH. WILL CONTINUE TO MONITOR.
[2021-02-25] VITALS: BP 148/96
--- NOTE | 2021-02-25 | NUR ---
VS WITHIN NORMAL LIMIT. PATIENT REPORTS PAIN 5/10, PAIN TOLERABLE. NO SIGN OF DISTRESS NOTED. CALL LIGHT WITHIN REACH. WILL CONTINUE TO MONITOR.
[2021-02-25] MEDS: NACL 0.9% 1,000 ML IV SCH ×3 (02:00→17:25)
--- NOTE | 2021-02-25 02:00 | NUR ---
ROUND CHECK. PATIENT IS ASKING TO USE BEDPAN. ASSIST PATIENT WITH BEDPAN, PATIENT TOLERATED WELL. NO SIGN OF DISTRESS NOTED. CALL LIGHT WITHIN REACH. WILL CONTINUE TO MONITOR.
[2021-02-25 04:00] VITALS: BP 179/118
[2021-02-25] MEDS: METHYL IVP SCH ×2 (04:13→13:35)
[2021-02-25] MEDS: HYDROmorphone 1 MG/ML AMP IVP PRN ×3 (04:59→17:37)
--- NOTE | 2021-02-25 04:59 | NUR ---
PATIENT COMPLAINS OF GEN BODY ACHE 05/19. PRN MEDICATION GIVEN WITH EDUCATION, PATIENT VERBALIZED UNDERSTANDING. NO SIGN OF DISTRESS NOTED. CALL LIGHT WITHIN REACH. WILL CONTINUE TO MONITOR.
[2021-02-25] MEDS: MORPHINE SULFATE 2 MG/ML SYR IVP PRN ×3 (06:36→15:01)
--- NOTE | 2021-02-25 06:36 | NUR ---
PATIENT REPORTS STILL IN PAIN, AND WILLING TO TAKE MORPHINE PRN. MEDICATION GIVEN WITH EDUCATION. PATIENT VERBALIZED UNDERSTANDING. NO SIGN OF DISTRESS NOTED. CALL LIGHT WITHIN REACH. WILL CONTINUE TO MONITOR.
--- NOTE | 2021-02-25 07:48 | NUR ---
ENDORSED PATIENT TO AM NURSE FOR CONTINUITY OF CARE. PATIENT IS STABLE.
--- NOTE | 2021-02-25 07:50 | NUR ---
RECEIVED BEDSIDE REPORT FROM SALES SUPPORT ADVISOR NURSE FOR CONTINUITY OF CARE. PT IS IN BED, ALERT AND ORIENTED X4. PT IS IN RA WITH SYMMETRICAL BREATHING. SKIN IS WARM. PT IS STABLE. CALL LIGHT IS WITHIN REACH. ALL SAFETY MEASURES ARE IN PLACE. WILL CONTINUE TO MONITOR.
[2021-02-25 08:00] VITALS: BP 155/108
[2021-02-25] MEDS ORDERED: MORPHINE SULFATE 2 MG/ML SYR IVP PRN (08:45)
--- NOTE | 2021-02-25 08:56 | NUR ---
0857 PT STATES THAT HER PAIN IS 10/10. TEXTED DR. GHOSH THAT PT IS ANXIOUS AND YELLING ABOUT HER PAIN BEEN 10/10. DR. GHOSH SAID TO ADMINISTER PRN PAIN MEDICATION MORPHINE. MEDICATION EDUCATION WAS GIVEN AND PT VERBALIZED UNDERSTANDING. SAFETY MEASURES ARE IN PLACE. WILL CONTINUE TO MONITOR.
[2021-02-25] MEDS: HYDROXYCHLOROQUINE 200 MG TAB PO SCH ×2 (08:57→09:04)
--- NOTE | 2021-02-25 09:04 | NUR ---
PATIENT HAS BEEN SCREENED AND CATEGORIZED HIGH NUTRITION RISK. PATIENT WILL BE SEEN WITHIN 1-2 DAYS OF ADMISSION. 02/25/21-02/26/[address]
[2021-02-25] MEDS ORDERED: PRED10TA5 PO (10:06)
--- NOTE | 2021-02-25 10:15 | NUR ---
PT IS IN BED AWAKE AND ORIENTED X4. PT IS IN RA WITH UNLABORED BREATHING. PT IS STABLE. ALL SAFETY MEASURES ARE IN PLACE. WILL KEEP MONITORING.
[2021-02-25] MEDS ORDERED: hydrALAZINE 20 MG/ML VIAL IVP PRN (10:35)
--- NOTE | 2021-02-25 11:26 | NUR ---
GAVE PRN MEDICATIONS TO PT BECAUSE PT STATES PAIN IS 10/10 AND HER BP WAS 185/116 AND A PULSE WAS 101. EDUCATED PT ON MEDICATION AND VERBALIZED UNDERSTANDING. SAFETY MEASURES ARE IN PLACE. WILL CONTINUE TO MONITOR.
[2021-02-25 12:00] VITALS: BP 160/110
--- NOTE | 2021-02-25 13:50 | NUR ---
PT LAYING IN BED TALKING ON THE PHONE AND IS A&O X4. PT IS IN RA WITH NO DISTRESS. PT IS STABLE. CALL LIGHT WITHIN REACH. ALL SAFETY MEASURES ARE IN PLACE. WILL CONTINUE TO MONITOR.
[2021-02-25 14:40] LABS: T4 (THYROXINE) 7.6 ug/dL (4.5 - 12.0)
--- NOTE | 2021-02-25 15:30 | NUR ---
PT IS AWAKE LAYING IN BED TALKING ON HER PHONE. PT IS STABLE. CALL LIGHT WITHIN REACH. WILL CONTINUE TO MONITOR
--- NOTE | 2021-02-25 15:36 | NUR ---
DC PLANNING: CM SPOKE WITH PATIENT AT BEDSIDE. SHE LIVES WITH HER SISTER IN A SECOND FLOOR APARTMENT, STATES SHE JUST MOVED HER FROM [place]. STATES SHE DIDN'T KNOW SHE NOW HAS [facility] , CM ENDORSED THAT SHE NEEDS TO REACH OUT TO [facility] TO GET A NEW PCP ASSIGNED FOR CONTINUATION OF MEDICATIONS. PATIENT IS INDEPENDENT IN ALL ACTIVITIES, STATES HER SISTER WILL PICK HER UP TONIGHT AROUND 8 PM. PATIENT ALSO STATES THAT SHE IS OUT OF ALL MEDICATIONS, ENDORSED TO WADE ROUSSEAU WHO CONTACTED PATIENTS ATTENDING MD. CM WILL CONTINUE TO FOLLOW FOR NEEDS.
[2021-02-25] MEDS ORDERED: HYDR200T5 PO (15:59)
[2021-02-25] MEDS ORDERED: HYDR2TAB6 PO (15:59)
[2021-02-25] MEDS ORDERED: QUET300T1 PO (15:59)
[2021-02-25 16:00] VITALS: BP 165/113
--- NOTE | 2021-02-25 16:15 | NUR ---
BLOOD WORK ORDER BY DR TO CHECK K BECAUSE PT REFUSED TO GET BLOOD WORK DONE IN THE MORNING. INFORMED PT ABOUT GETTING BLOOD WORK DONE TO CHECK K BUT PT REFUSED TO GET BLOOD WORK DONE. PT STATED "I'M LEAVING AT 8 I DONT WANT TO GET POKE CAUSE ITS HARD TO GET A VEIN." INFORMED PT ABOUT THE IMPORTANCE OF CHECKING K BUT PT STILL REFUSED TO GET BLOOD WORK DONE. TEXTED DR GHOSH TO LET HER KNOW AND SAID IT WAS "OK" .
--- NOTE | 2021-02-25 16:45 | NUR ---
PT IS SITTING IN BED AND ON HER PHONE. PT IS ON RA WITH NO DISTRESS NOTED. PT IS STABLE. CALL LIGHT WITHIN REACH. ALL SAFETY MEASURES ARE IN PLACE. WILL CONTINUE TO MONITOR.
--- NOTE | 2021-02-25 17:37 | NUR ---
PT STATES THAT HER PAIN LEVEL IS 9/10. GAVE HER PRN PAIN MEDICATION. MEDICATION EDUCATION WAS PROVIDED PT VERBALIZED UNDERSTANDING. PT IS STABLE. ALL SAFETY MEASURES ARE IN PLACE. WILL CONTINUE TO MONITOR.
--- NOTE | 2021-02-25 18:40 | NUR ---
PT AMBULATED OUT TO THE FRONT OF HOSPITAL. PT IS STABLE. REMOVED IV WITH INTACT CANNULA. REMOVED TELE MONITOR AND RETURNED TO TECH MONITOR. Addendum: 02/25/21 at 1848 by Melissa Leos RN RN REMOVED IV FROM L FOOT AND BLEEDING WAS CONTROLLED. REMOVED ID BAND. VS STABLE. DISCHARGED INSTRUCTIONS PROVIDED AND PT VERBALIZED UNDERSTANDING.
[2021-02-25] MEDS ORDERED: methylPREDNISolone SS 40 MG/ML VIAL IVP SCH (21:00)
== END 2021-02-25 18:40 | disposition home or self-care (01) ==
LOC: MED 10:28 → MTU 14:53
DX: D57.1 Sickle-cell disease without crisis (principal); E87.6 Hypokalemia; E83.42 Hypomagnesemia; M06.9 Rheumatoid arthritis, unspecified; D72.819 Decreased white blood cell count, unspecified; M32.9 Systemic lupus erythematosus, unspecified; M79.7 Fibromyalgia; Z91.14 Patient's other noncompliance with medication regimen; E44.1 Mild protein-calorie malnutrition; E66.9 Obesity, unspecified; Z68.29 Body mass index [BMI] 29.0-29.9, adult; Z79.899 Other long term (current) drug therapy
CPT/HCPCS: 36415; 71045; 80053; 80305; 81001; 82150; 83036; 83690; 83735; 83880; 84100; 84134; 84436; 84443; 84484; 85025; 85045; 85610; 87081; 87086; 87426; 96361; 96365; 96366; 96367; 96375; 96376; 99285; G0378; J0360; J1170; J1200; J2270; J2405; J2920; J2930; J3475; J3480

== ENCOUNTER 2021-03-07 16:52 | Emergency (ER) | payer OTHER, SELFPAY ==
[~2021-03-07] VITALS: Ht 162.6 cm; Wt 68.0 kg
[~2021-03-07 16:52] MED LIST changes: +PRED10TA5 PO; +QUET300T1 PO
[2021-03-07 17:16] VITALS: BP 121/71
--- NOTE | 2021-03-07 17:30 | NUR ---
PATIENT WAITING IN TENT
--- NOTE | 2021-03-07 17:44 | NUR ---
COVID SWABS COLLECTED
--- NOTE | 2021-03-07 18:40 | NUR ---
COVID SYMPTOMS/EXPOSURE X1 WEEK, SYMPTOMS BEGAN 4 DAYS AGO AND PT STATES SHE IS HAVING COUGH AND RUNNY NOSE PMH: SICKLE CELL DISEASE
[2021-03-07] MEDS ORDERED: BENZ-196 PO (18:44)
[2021-03-07 19:03] VITALS: BP 121/71
--- NOTE | 2021-03-07 19:04 | NUR ---
Patient discharged with v/s stable. Written and verbal after care instructions given and explained. Patient alert, oriented and verbalized understanding of instructions. Ambulatory with steady gait. All questions addressed prior to discharge. ID band removed. Patient advised to follow up with PMD. Rx of JAYLIN JOSEPH given. Patient educated on indication of medication including possible reaction and side effects. Opportunity to ask questions provided and answered.
== END 2021-03-07 19:04 | disposition home or self-care (01) ==
LOC: MED 16:52
DX: R05 Cough (principal); R09.81 Nasal congestion; J02.9 Acute pharyngitis, unspecified; Z20.822 Contact with and (suspected) exposure to COVID-19; J45.909 Unspecified asthma, uncomplicated; Z88.0 Allergy status to penicillin; Z88.6 Allergy status to analgesic agent; Z88.1 Allergy status to other antibiotic agents; Z88.8 Allergy status to other drugs, medicaments and biological substances
CPT/HCPCS: 87426; 99283; U0003

== ENCOUNTER 2021-03-10 10:05 | Emergency (ER) | payer OTHER, SELFPAY ==
[~2021-03-10] VITALS: Ht 165.1 cm; Wt 80.7 kg
[~2021-03-10 10:05] MED LIST changes: +BENZ-196 PO
[2021-03-10 10:10] VITALS: BP 148/98
--- NOTE | 2021-03-10 11:09 | NUR ---
PT AMBULATED TO BED 11
--- NOTE | 2021-03-10 11:18 | NUR ---
25 Y/O FEMALE C/O NAUSEA, VOMITTING, ABD PAIN, JOINT PAIN, WEAKNESS X 2 DAYS. PT STATES THESE ARE USUAL SYMPTOMS OF SICKLE CELL CRISIS SHE HAS. PT ALSO C/O OF SOB, SPO2 99% ON RA, NO INCREASED WORK OF BREATHING. PT DENIES DIARRHEA. PT ADMITTED HERE 02/24 LUPUS FLARE UP, PT STATED SHE SAW HERE PCP X2 WEEKS AGO AFTER SHE WAS ADMITTED. PT A/O X4 WITH EVEN AND UNLABORED RESPIRATIONS. PMH - SICKLE CELL AND LUPUS ALLERGIES:SEE CHART FOR EXTENSIVE ALLERGY LIST
--- NOTE | 2021-03-10 11:22 | NUR ---
DR MARTIN AT BEDSIDE EVALUATING PT
[2021-03-10] MEDS ORDERED: NACL 0.9% 1,000 ML IV ONE (11:25)
[2021-03-10] MEDS ORDERED: ONDANSETRON 4 MG/2 ML VIAL IVP ONE (11:25)
[2021-03-10] MEDS ORDERED: HYDROmorphone PFS 2 MG/ML SYR IVP ONE (11:25)
--- NOTE | 2021-03-10 11:48 | NUR ---
UNABLE TO INSERT IV, DR MARTIN MADE AWARE. ULTRASOUND AT BEDSIDE
--- NOTE | 2021-03-10 12:23 | NUR ---
DR MARTIN AT BEDSIDE FOR ULTRASOUND IV
[2021-03-10] MEDS ORDERED: ONDANSETRON 4 MG ODT PO ONE (12:40)
[2021-03-10] MEDS ORDERED: HYDROmorphone PFS 2 MG/ML SYR IM ONE ×2 (12:40→14:25)
--- NOTE | 2021-03-10 12:49 | NUR ---
NO SUCCESS WITH ULTRASOUND IV. CANCELLED ORDER FOR IV AND IV MEDS. WILL CARRY OUT PO/IM MEDICATIONS.
--- NOTE | 2021-03-10 12:53 | NUR ---
PT REFUSING BLOOD DRAW. DR MARTIN MADE AWARE
[2021-03-10 13:48] VITALS: BP 145/94
--- NOTE | 2021-03-10 14:22 | NUR ---
PT REQUESTING MORE PAIN MEDICATION. DR MARTIN MADE AWARE
--- NOTE | 2021-03-10 15:05 | NUR ---
Female Lot Associate accompanied female patient FOR EXAM OF VAGINAL INGROWN HAIR
[2021-03-10] MEDS ORDERED: ACET-5629 PO (15:19)
--- NOTE | 2021-03-10 15:30 | NUR ---
Patient discharged with v/s stable. Written and verbal after care instructions ABOUT MEDICATION AND CHRONIC PAIN given and explained. Patient alert, oriented and verbalized understanding of instructions. Ambulatory with steady gait. All questions addressed prior to discharge. ID band removed. Patient advised to follow up with PMD. Rx of PERCOCET 5-325MG given. Patient educated on indication of medication including possible reaction and side effects. Opportunity to ask questions provided and answered.
== END 2021-03-10 15:30 | disposition home or self-care (01) ==
LOC: MED 10:05
DX: R11.2 Nausea with vomiting, unspecified (principal); D57.1 Sickle-cell disease without crisis; M79.10 Myalgia, unspecified site
CPT/HCPCS: 81002; 81025; 96372; 99284; J1170; Q0162

== ENCOUNTER 2021-03-13 06:50 | Emergency (ER) | payer OTHER, SELFPAY ==
[~2021-03-13] VITALS: Ht 165.1 cm; Wt 81.6 kg
[~2021-03-13 06:50] MED LIST changes: +ACET-5629 PO
[2021-03-13 06:55] VITALS: BP 129/93
--- NOTE | 2021-03-13 07:01 | NUR ---
PT AMBULATED TO LOBBY. REFUSED TO GIVE URINE SAMPLE.
--- NOTE | 2021-03-13 09:17 | NUR ---
PT WAS TAKEN TO [facility] FOR LAB DRAWS.
--- NOTE | 2021-03-13 09:40 | NUR ---
PT LEFT FACILITY AT THIS TIME.
== END 2021-03-13 09:40 | disposition left against medical advice (07) ==
LOC: MED 06:50
DX: M79.10 Myalgia, unspecified site (principal); R11.2 Nausea with vomiting, unspecified; Z79.899 Other long term (current) drug therapy; Z98.890 Other specified postprocedural states; Z88.0 Allergy status to penicillin; Z88.5 Allergy status to narcotic agent; Z88.8 Allergy status to other drugs, medicaments and biological substances; Z88.6 Allergy status to analgesic agent; Z88.1 Allergy status to other antibiotic agents
CPT/HCPCS: 99281

== ENCOUNTER 2021-03-16 09:13 | Inpatient (IN) | payer OTHER ==
[~2021-03-16] VITALS: Ht 165.1 cm; Wt 80.7 kg
[2021-03-16 09:18] VITALS: BP 144/99
--- NOTE | 2021-03-16 09:22 | NUR ---
patient ambulated to bed 11.
--- NOTE | 2021-03-16 09:41 | NUR ---
PATIENT FROM HOME, C/O N/V, JOINT PAIN, AND ABD PAIN X 3 DAYS. PATIENT DENIES EATING AND UNABLE TO KEEP FLUIDS DOWN. PATIENT'S PAIN IS A 10/10 THAT IS SHARP, ACHING, AND CONSTANT. AAOX4. VSS. PMH: SCD, LUPUS ALLERGIES: PENICILLINS, ROCEPHIN, AZRITHROMYCIN, TRAMADOL, TORADOL, BACLOFEN, MORPHINE
[2021-03-16] MEDS ORDERED: ONDANSETRON 4 MG/2 ML VIAL IVP ONE (10:20)
[2021-03-16] MEDS ORDERED: HYDROmorphone PFS 2 MG/ML SYR IVP ONE ×4 (10:20→14:55)
[2021-03-16] MEDS ORDERED: NACL 0.9% 1,000 ML IV ONE (10:30)
--- NOTE | 2021-03-16 10:57 | NUR ---
LAB AT PT BEDSIDE. UNABLE TO DRAW BLOOD AT THIS TIME. MADE AWARE.
--- NOTE | 2021-03-16 11:12 | NUR ---
Pt report given to Ana María ROUSSEAU. Transfer of care at this time.
--- NOTE | 2021-03-16 11:14 | NUR ---
assumed care of this patient, report provided by Nasrin RN
--- NOTE | 2021-03-16 11:30 | NUR ---
attempted to draw labs, unable.
[2021-03-16] MEDS ORDERED: HYDROmorphone PFS 2 MG/ML SYR ONE ×3 (11:50→14:52)
--- NOTE | 2021-03-16 12:40 | NUR ---
Dr Dudley at bedside, plan is to administer another 0.5mg IVP, administered as ordered.
--- NOTE | 2021-03-16 12:42 | NUR ---
patient requests an addition IV flush because she didn't really taste the dilaudid. IV flushed with additional 10cc NS
--- NOTE | 2021-03-16 13:11 | NUR ---
DR REARDON AT BEDSIDE DISCUSSING PLAN WITH PATIENT. LAB TO COME ATTEMPT OBTAINING BLOOD FOR LABS.
--- NOTE | 2021-03-16 13:30 | NUR ---
URINE COLLECTED, URINE HCG NEG, DIP RESULTS TO .
--- NOTE | 2021-03-16 13:42 | NUR ---
LABS OBTAINED. TO CT VIA WHEELCHAIR.
[2021-03-16 14:01] LABS: ANION GAP 18.2 (8-16); CARBON DIOXIDE 18.8 mmol/L (21-32); CHLORIDE 110 mmol/L (98-107); CREATININE 0.5 mg/dL (0.6-1.3); GFR ARICAN-AMERICAN 193 mL/min (>90); GLUCOSE 84 mg/dL (74-106); SODIUM SERUM 143 mmol/L (136-145); UREA NITROGEN, BLOOD 7 mg/dL (7-18)
[2021-03-16 14:02] LABS: LIPASE 44 U/L (73-393)
[2021-03-16 14:23] LABS: ASPARTATE AMINOTRANSFERASE 34 U/L (15-37); TOTAL BILIRUBIN 0.2 mg/dL (0.0-1.0)
--- NOTE | 2021-03-16 14:50 | NUR ---
DR BORGES IN TO SPEAK TO PATIENT. ORDER TO ADMINISTER DILAUDID 2MG IVP WITH THE PLAN TO DISCHARGE HOME WITH RX.
--- NOTE | 2021-03-16 14:55 | NUR ---
DILAUDID 2MG ADMINISTERED IVP TO LEFT FOOT, FLUSHED WITH 10 CC NORMAL SALINE. "PLEASE DON'T TAKE MY IV OUT BECAUSE I DON'T KNOW IF I WILL STILL HAVE PAIN AND WILL NEED MORE".
--- NOTE | 2021-03-16 15:16 | NUR ---
RESTING QUIETLY, NO OVERT DISTRESS NOTED. VSS, SKIN IS WARM AND DRY, RESP EVEN AND UNLABORED, REPORTS THAT HER PAIN LEVEL IS NOW 8.
--- NOTE | 2021-03-16 15:29 | NUR ---
AT BEDSIDE. PATIENT IS REQUESTING TO BE ADMITTED FOR INTRACTABLE PAIN.
[2021-03-16] MEDS ORDERED: POTASSIUM CHLORIDE 40 MEQ, LIDOCAINE MPF 1% 25 MG in NACL 0.9% 250 ML IV PRN (16:20)
[2021-03-16] MEDS ORDERED: SODIUM PHOS / POTASSIUM PHOS 1 PKT PDR PO PRN (16:20)
[2021-03-16] MEDS ORDERED: DOCUSATE SODIUM 100 MG GELCAP PO PRN (16:20)
[2021-03-16] MEDS ORDERED: MAG SULF 2000 MG/WATER PREMIX 50 ML IV PRN (16:20)
[2021-03-16] MEDS ORDERED: HYDROmorphone 2 MG TAB PO PRN (17:20)
--- NOTE | 2021-03-16 17:20 | NUR ---
PATIENT STATES HER BODY PAIN IS NOW SEVERE, VOCALLY DISRUPTIVE. CONTACTED DR VALIENTE, ORDERS RECEIVED.
--- NOTE | 2021-03-16 17:25 | NUR ---
MEDICATED ORDERED, VS UPDATED, WARM BLANKET TO SHOULDERS FOR COMFORT STATES HER PAIN IS NOW IN HER ABDOMEN AND SHOULDERS.
[2021-03-16] MEDS ORDERED: HYDROmorphone 1 MG/ML AMP ONE (17:26)
[2021-03-16] MEDS: HYDROmorphone 1 MG/ML AMP IVP PRN ×2 (17:44→22:09)
[2021-03-16 17:48] LABS: BARBITURATE, URINE NEGATIVE ng/ml (NEG <=200); BENZODIAZEPINE, URINE NEGATIVE ng/mL (NEG <=200); CANNABINOID, URINE POSITIVE ng/mL (NEG <=50); COCAINE, URINE NEGATIVE ng/mL (NEG <=300); OPIATE, URINE POSITIVE ng/mL (NEG <=2000); PHENCYCLIDINE SCREEN,URINE NEGATIVE ng/mL (NEG <=25)
--- NOTE | 2021-03-16 17:49 | NUR ---
PATIENT IS SLEEPING.
--- NOTE | 2021-03-16 18:56 | NUR ---
SITTING UP IN BED, NO DISTRESS NOTED AT THIS TIME.
--- NOTE | 2021-03-16 19:54 | NUR ---
REPORT TO SONIYA ROUSSEAU, READY FOR TRANSPORT TO [facility]
--- NOTE | 2021-03-16 20:00 | NUR ---
RECEIVED REPORT FROM ED ONELIA RALPH.
--- NOTE | 2021-03-16 20:11 | NUR ---
TO MEDSUR[facility] VIA W/C STABLE COND
[2021-03-16 20:30] VITALS: BP 152/90
--- NOTE | 2021-03-16 20:30 | NUR ---
Admitted from , with chief complaint of Intractable pain and body ache, 25 y/o ,Female, Cooperative,oriented to call light, bed, phone,television, bathroom, smoking policy, visiting hours, procedures, ID bracelet on. Belongings list checked.Pt has a personal cell phone in bed with her. Bedside commode at bedside. Resp reg non-labored, At present voices no c/o pain or discomfort. Addendum: 03/17/21 at 0615 by Agency 06 ONELIA RN Admitted from the ED
[2021-03-16] MEDS: NACL 0.9% 1,000 ML IV SCH (22:00)
[2021-03-16] MEDS: HYDROcodone/APAP 10/325 MG 1 TAB TAB PO PRN ×2 (22:05→22:15)
--- NOTE | 2021-03-16 22:16 | NUR ---
PATIENT REFUSED NORCO PO
[2021-03-16] MEDS: ONDANSETRON 4 MG/2 ML VIAL IM/IVP PRN (22:22)
[2021-03-17] MEDS ORDERED: BENZONATATE 100 MG CAPLF PO PRN (00:10)
[2021-03-17] MEDS: ONDANSETRON 4 MG/2 ML VIAL IM/IVP PRN ×6 (02:30→23:00)
[2021-03-17] MEDS: HYDROmorphone 1 MG/ML AMP IVP PRN ×6 (02:30→23:01)
[2021-03-17 04:00] VITALS: BP 148/89
--- NOTE | 2021-03-17 07:10 | NUR ---
PATIENT SLEEPING. BREATHING EVEN AND UNLABORED. PATIENT SLEEPING. ALL SAFETY MEASURES IN PLACE. WILL CONTINUE TO MONITOR. Addendum: 03/17/21 at 0752 by Wendy Mosley RN RN RECEIVE REPORT FROM ENROUTE CONTROLLER NURSE FOR CONTINUITY OF CARE.
[2021-03-17 08:00] VITALS: BP 138/88
--- NOTE | 2021-03-17 08:56 | NUR ---
PATIENT HAS BEEN SCREENED AND CATEGORIZED LOW NUTRITION RISK. PATIENT WILL BE SEEN WITHIN 7 DAYS OF ADMISSION. 03/23/[address]
[2021-03-17] MEDS: HYDROXYCHLOROQUINE 200 MG TAB PO SCH ×2 (09:00→21:00)
[2021-03-17] MEDS: PANTOPRAZOLE 40 MG TABEC PO SCH (09:00)
--- NOTE | 2021-03-17 09:00 | NUR ---
PATIENT AWAKE. BREATHING EVEN AND UNLABORED. PATIENT REFUSE ROUTINE MEDICATION. PATIENT EDUCATED ON THE NEED TO TAKE MEDICATION. PATIENT VERBALIZE UNDERSTANDING BUT CONTINUE TO REFUSE MEDICATION. ALL SAFETY MEASURES IN PLACE. WILL CONTINUE TO MONITOR.
--- NOTE | 2021-03-17 11:15 | NUR ---
PATIENT SLEEPING. BREATHING EVEN AND UNLABORED. ALL SAFETY MEASURES IN PLACE. WILL CONTINUE TO MONITOR.
[2021-03-17] MEDS ORDERED: PROMETHAZINE 25 MG TAB PO PRN (12:25)
--- NOTE | 2021-03-17 13:26 | NUR ---
PATIENT ASLEEP. NO ACUTE DISTRESS NOTED. ALL SAFETY MEASURES IN PLACE. WILL CONTINUE TO MONITOR.
--- NOTE | 2021-03-17 15:10 | NUR ---
PATIENT SLEEPING. NO ACUTE DISTRESS NOTED. ALL SAFETY MEASURES IN PLACE. WILL CONTINUE TO MONITOR.
[2021-03-17] MEDS: NACL 0.9% 1,000 ML IV SCH (16:20)
--- NOTE | 2021-03-17 17:30 | NUR ---
PATIENT SLEEPING. BREATHING EVEN AND UNLABORED. ALL SAFETY MEASURES IN PLACE. WILL CONTINUE TO MONITOR.
--- NOTE | 2021-03-17 19:10 | NUR ---
ENDORSED REPORT FOR CONTINUITY OF CARE. PATIENT STABLE. ALL SAFETY MEASURES IN PLACE.
--- NOTE | 2021-03-17 19:30 | NUR ---
RECEIVED REPORT FROM RN DAYSHIFT NURSE AT BEDSIDE FOR CONTINUITY OF CARE, PT IN STABLE CONDITION.
--- NOTE | 2021-03-17 20:00 | NUR ---
PT LYING IN BED AOX4 LOOKING AT PHONE SHE HAS A 22G IN LEFT FOOT RUNNING NORMAL; SALINE AT 40 MLS/HR. PT HAS HER DINNER AT BEDSIDE PT DECLINED TO EAT IT SAYING SHE FEELS NAUSEA. V/S FOLLOWS: T 98.5 P 96 R 16 B/P 143/90 02 98% ON ROOM AIR. BEDSIDE COMMODE AT BEDSIDE. ALL UNIVERSAL FALLS PRECAUTIONS IN PLACE.
[2021-03-17] MEDS ORDERED: QUEtiapine FUMARATE 100 MG TAB PO SCH (21:00)
--- NOTE | 2021-03-17 21:00 | NUR ---
PT REFUSED PLAQUENIL AND SEROQUEL BECAUSE SHE SAID SHE CANNOT HOLD DOWN ANY PILLS BECAUSE SHE IS NAUSEA.
--- NOTE | 2021-03-17 23:00 | NUR ---
PT RECEIVED DILAUDID IVP FOR C/O OF SEVERE PAIN.
[2021-03-17] MEDS ORDERED: HYDROmorphone 1 MG/ML AMP IVP PRN (23:50)
[2021-03-18] VITALS: BP 140/88
--- NOTE | 2021-03-18 01:00 | NUR ---
TEXTED ETL DATABASE DEVELOPER MD GHOSH REGARDING IF PT COULD BE CHANGED TO D5 BECAUSE PT HAD NOT BEEN EATING. MD GHOSH ASKED WHAT HER DILAUDID PAIN MEDICATION WAS SCHEDULED. I REPLIED 1MG DILAUDID Q4HRS. SAID TO CHANGE IT TO 1MG Q12H.
--- NOTE | 2021-03-18 03:00 | NUR ---
PT CALLED AND ASKED FOR HER PAIN MEDICATION. WHEN TOLD THAT HER IVP DILAUDID WAS CHANGED FORM Q4 TO Q12HRS, PT WAS LIVID!! SCREAMING IN THE PHONE, THEN SHE GOT UP OUT OF BED WITH A STEADY GAIT AND SCREAMED DOWN THE [place]. SECURITY AND MEDICARE INSURANCE SPECIALIST WAS CALLED. PATIENT WAS TOLD OVER AND OVER THAT THE DOCTOR PURPOSELY CHANGED HER MEDICATION TIMES. PT COMPLAINS THAT SHE IS IN PAIN , NO FACIAL GRIMACING OR DIFFICULTY WALKING, PT WAS WALKING QUICKLY TO TRY AND LEAVE THE HOSPITAL IN HER GOWN AND BEAR FOOT NO PHYSICAL EXPRESSIONS OF PAIN ONLY THE YELLING THAT SHE IS UNABLE TO GET HER MEDICATION. PT WENT BACK TO ROOM AND CRIED AND SCREAMED SOME MORE. AGAIN EXPLAINED TO HER THAT HER ORTHOPEDIC SURGEON MD CHANGED HER MEDICATION ON PURPOSE AND THAT HER MEDICATION IS BEING TITRATED DOWN SO SHE CAN GO HOME. PT ASKED TO CHANGED NURSE RASHEEDA MEDICARE INSURANCE SPECIALIST WILL BE HER NURSE FOR THE REMAINDER OF THE SHIFT.
--- NOTE | 2021-03-18 07:10 | NUR ---
RECEIVE REPORT FROM WHIPPER NURSE FOR CONTINUITY OF CARE. PATIENT AWAKE. ALL SAFETY MEASURES IN PLACE. WILL CONTINUE TO MONITOR.
[2021-03-18] MEDS: PANTOPRAZOLE 40 MG TABEC PO SCH (09:00)
[2021-03-18] MEDS: HYDROXYCHLOROQUINE 200 MG TAB PO SCH (09:00)
--- NOTE | 2021-03-18 09:00 | NUR ---
PATIENT YELLING IN HALLWAY REQUESTING PAIN MEDICATION. PATIENT AWARE THAT NEXT PRN MEDICATION IS DUE AT 1100. DR. GHOSH AWARE. PATIENT REFUSE ROUTINE MEDICATION.
[2021-03-18] MEDS ORDERED: MORPHINE SULFATE 2 MG/ML SYR IVP PRN (09:10)
[2021-03-18] MEDS: ONDANSETRON 4 MG/2 ML VIAL IM/IVP PRN (11:05)
--- NOTE | 2021-03-18 12:30 | NUR ---
PATIENT AWAKE AND ALERT. BREATHING EVEN AND UNLABORED. PATIENT REFUSE VS TO BE TAKEN. ALL DISCHARGED INFORMATION GIVE. PATIENT SIGNED ALL DISCHARGE DOCUMENTATION. COPIES MADE FOR PATIENT. PATIENT VERBALIZE UNDERSTANDING. WRISTBAND REMOVED. IV TAKEN OUT. IV CATHETER INTACT. PATIENT INITIALLY STATED THAT FAMILY WOULD PICK HER UP. PATIENT THEN STATED THAT SHE NEEDED A RIDE. TAXI VOUCHER PROVIDED. ALL BELONGING WITH PATIENT. PATIENT TAKEN TO LOBBY.
== END 2021-03-18 12:30 | disposition home or self-care (01) | DRG 249 ==
LOC: MED 09:13 → MMU 16:24 → MTU 19:35
PROVIDERS: ADMIT Hospitalist; ATTEND Hospitalist
DX: R11.10 Vomiting, unspecified (principal); D57.1 Sickle-cell disease without crisis; M32.9 Systemic lupus erythematosus, unspecified; M79.7 Fibromyalgia; M06.9 Rheumatoid arthritis, unspecified; Z88.6 Allergy status to analgesic agent; Z88.1 Allergy status to other antibiotic agents; Z88.0 Allergy status to penicillin; Z88.8 Allergy status to other drugs, medicaments and biological substances; F12.20 Cannabis dependence, uncomplicated
CPT/HCPCS: 36415; 71045; 80053; 80305; 83690; 93005; 96361; 96374; 96375; 99285; J1170; J2405

== ENCOUNTER 2021-04-08 08:48 | Emergency (ER) | payer OTHER ==
[~2021-04-08] VITALS: Ht 165.1 cm; Wt 81.6 kg
[2021-04-08 08:48] VITALS: BP 134/93
--- NOTE | 2021-04-08 08:49 | NUR ---
25 y/o F BIBA from home c/o generalized body pain x 5 days. Patient A&Ox4, ambulatory from [facility], states reports 10/10, sharp/constant, non-radiating pain. Patient also reports nausea and vomitnig multiple episodes -hematuria, unable to keep foods or fluid down. Pt reports chronic issue d/t hx fibromyalgia, lupus, sickle cell. Last flare up 1 month ago. 4mg Zofran ODT given by EMS en route with minor relief. Last pain medication 2 days ago. Unable to obtain further assessment findings due to patient's pain. threat monitoring analyst in place. VSS; respirations even/unlabored. Bed locked in lowest position side rails x1, call light in reach. PMH: Fibromyalgia, lupus, sickle cell A: All -cillins, Tylenol, morphine, baclofen, see chart for full list
--- NOTE | 2021-04-08 08:51 | NUR ---
BIBA TO ER BED 12
--- NOTE | 2021-04-08 09:21 | NUR ---
Dr. York is evaluating patient at bedside.
[2021-04-08] MEDS ORDERED: NACL 0.9% 1,000 ML IV ONE (09:25)
[2021-04-08] MEDS ORDERED: ONDANSETRON 4 MG/2 ML VIAL IVP ONE (09:25)
[2021-04-08] MEDS ORDERED: fentaNYL citrate 0.05 MG/ML VIAL IVP ONE (09:25)
--- NOTE | 2021-04-08 09:50 | NUR ---
Patient presents restless in bed due to body pain. Comfort measures provided.
[2021-04-08] MEDS ORDERED: ONDANSETRON 4 MG ODT PO ONE (09:55)
[2021-04-08] MEDS ORDERED: HALOPERIDOL IM 5 MG/ML VIAL IM ONE (09:55)
[2021-04-08] MEDS ORDERED: HYDROmorphone PFS 2 MG/ML SYR IM ONE (09:55)
--- NOTE | 2021-04-08 09:55 | NUR ---
Unable to obtain IV after multiple attempts. Lab made aware for blood draw.
--- NOTE | 2021-04-08 10:00 | NUR ---
RAD at bedside.
--- NOTE | 2021-04-08 10:12 | NUR ---
Pt wheelchaired to restroom for urine sample.
--- NOTE | 2021-04-08 10:22 | NUR ---
UA collected, handed to CPT Regan at ER bedside
--- NOTE | 2021-04-08 10:25 | NUR ---
Lab unable to draw; states patient said she was allowed [address] York made aware .
--- NOTE | 2021-04-08 10:30 | NUR ---
Dr. York is evaluating patient at bedside. Patient reports she has been allowing lab to try for blood draw and that she did not refuse for repeat blood draw attempts.
--- NOTE | 2021-04-08 10:32 | NUR ---
Lab contacted to come back for blood draw.
--- NOTE | 2021-04-08 10:37 | NUR ---
Patient resting in position of comfort. States 910 pain, minor relief to pain and nausea. "I have a little nausea right now."
[2021-04-08 10:47] LABS: APPEARANCE,URINE CLEAR (CLEAR); BILIRUBIN,URINE NEGATIVE (NEGATIVE); BLOOD, URINE NEGATIVE (NEGATIVE); COLOR,URINE YELLOW (YELLOW); LEUKOCYTE ESTERASE ,URINE NEGATIVE (NEGATIVE); NITRITE, URINE NEGATIVE (NEGATIVE); UGLUCOSE NEGATIVE (NEGATIVE)
--- NOTE | 2021-04-08 11:03 | NUR ---
Lab recontacted for blood draw. CPT Moiz states he will try again.
--- NOTE | 2021-04-08 11:07 | NUR ---
Lab at bedside
--- NOTE | 2021-04-08 11:30 | NUR ---
Pain reassessed; patient states relief; 7/10 pain at this time.
[2021-04-08 11:31] LABS: BASOPHILS % (AUTO) 0.3 % (0.0-2.0); EOSINOPHILS % (AUTO) 0.1 % (0.0-4.0); HEMATOCRIT 29.1 % (36-48); HEMOGLOBIN 9.2 g/dL (12.0-16.0); LYMPHOCYTES # (AUTO) 0.6 K/uL (2.5-16.5); LYMPHOCYTES % (AUTO) 19.4 % (20.5-51.1); MEAN CORPUSCULAR HEMOGLOBIN 21 pg (27-31); MEAN CORPUSCULAR HGB CONC 32 g/dL (33-37); MONOCYTES # (AUTO) 0.2 K/uL (0.8-1.0); MONOCYTES % (AUTO) 7.2 % (1.7-9.3); NEUTROPHILS # (AUTO) 2.1 K/uL (1.8-7.7); PLATELET COUNT (AUTO) 437 K/uL (140-450); RED CELL DISTRIBUTION WIDTH 20.2 % (11.6-13.7); WHITE BLOOD COUNT (AUTO) 2.9 K/uL (4.8-10.8)
[2021-04-08 11:47] LABS: ANION GAP 11.9 (8-16); CARBON DIOXIDE 25.3 mmol/L (21-32); CREATININE 0.6 mg/dL (0.6-1.3); POTASSIUM 3.2 mmol/L (3.5-5.1); TOTAL BILIRUBIN 0.2 mg/dL (0.0-1.0)
--- NOTE | 2021-04-08 11:55 | NUR ---
Pt W/C'd to restroom to void.
--- NOTE | 2021-04-08 12:05 | NUR ---
Patient W/C'd back onto bed and placed onto inspector and tester. VSS. Respirations even/unlabored. Bed locked in lowest position, side rails x2.
--- NOTE | 2021-04-08 12:06 | NUR ---
Patient requesting pain medication; reports pain 9/[address] Boss made aware; no orders placed.
[2021-04-08] MEDS ORDERED: KETOROLAC 60 MG/2 ML VIAL IM ONE (12:29)
--- NOTE | 2021-04-08 12:30 | NUR ---
Dr. Boss is evaluating patient at bedside.
[2021-04-08] MEDS ORDERED: ONDA8TAB87 PO (12:36)
[2021-04-08] MEDS ORDERED: LEVO750T51 PO (12:36)
--- NOTE | 2021-04-08 12:55 | NUR ---
Socorro mejias in [facility] - 04/08/21 at 1321 by YESENIA Taxi voucher given to registration; patient to wait in lobby pending taxi arrival.
--- NOTE | 2021-04-08 12:55 | NUR ---
Patient discharged with v/s stable. Written and verbal after care instructions given and explained. Patient given discharge paperwork; patient states "I don't want to haer any of it. Just let me sign." Patient alert, oriented and verbalized understanding of instructions. Ambulatory with steady gait. All questions addressed prior to discharge. ID band removed. Patient advised to follow up with PMD. Rx of LEVOFLOXACIN, ZOFRAN given. Patient educated on indication of medication including possible reaction and side effects. Opportunity to ask questions provided and answered. Taxi voucher given to registration; patient to wait in lobby pending taxi arrival.
--- NOTE | 2021-04-08 12:56 | NUR ---
Pt requesting taxi voucher states nobody home to pick her up. respiratory supervisor made aware.
--- NOTE | 2021-04-08 12:57 | NUR ---
Taxi voucher given to registration; patient to wait in lobby pending taxi arrival.
[2021-04-09] MEDS ORDERED: PRED20TA5 PO (11:48)
== END 2021-04-08 12:55 | disposition home or self-care (01) ==
LOC: MED 08:48
DX: J18.9 Pneumonia, unspecified organism (principal); M32.9 Systemic lupus erythematosus, unspecified; F12.10 Cannabis abuse, uncomplicated; Z88.0 Allergy status to penicillin; Z88.6 Allergy status to analgesic agent; Z88.1 Allergy status to other antibiotic agents; Z88.5 Allergy status to narcotic agent
CPT/HCPCS: 36415; 71045; 80053; 81025; 83605; 83690; 85025; 85045; 87040; 93005; 96372; 99285; J1170; J1630; Q0162; J1885; Q0092

== ENCOUNTER 2021-04-09 10:11 | Emergency (ER) | payer OTHER ==
[~2021-04-09] VITALS: Ht 165.1 cm; Wt 57.7 kg
[~2021-04-09 10:11] MED LIST changes: +LEVO750T51 PO; +ONDA8TAB87 PO
[2021-04-09 10:13] VITALS: BP 125/88
--- NOTE | 2021-04-09 10:13 | NUR ---
PT BROUGHT TO BED 1 VIA DANISH NASH
--- NOTE | 2021-04-09 10:14 | NUR ---
25 YO FEMALE [address]IB[address]iele FROM [facility] C/C ALLERGIC REACTION S/P TOOK BACLOFEN AT HOME BY ACCIDENT PT WENT TO [facility] FOR BENADRYL, THEN REPORTED TONGUE SWELLING, NUMBNESS TO FACE AND CALLED 911. MEDICS ARRIVED AND PT WAS HAVING PANIC ATTACK, GAVE BENADRYL 50MG IM L DELTOID. UPON ASSESSMENT PATIENT A&OX4, PLACED ON MONITOR O2 SAT 100%, PATIENT IS TACHY-TACHY, LUNGS CLEAR THROUGHOUT, NO WHEEZING. REPORTS TONGUE SWELLING, REPORTS DIFFICULTY STICKING OUT TONGUE WHEN ASSESSING DEGREE OF SWELLING,PT ABLE TO FORMULATE COMPLETE SENTENCES. SKIN INTACT AND NORMAL COLOR, CAP REFILL <3. WILL CONTINUE TO MONITOR. PMH: SICKLE CELL, LUPUS ALLERGIES: SEE CHART.
--- NOTE | 2021-04-09 10:59 | NUR ---
PATIENT AMBULATED TO BATHROOM, STEADY GAIT.
--- NOTE | 2021-04-09 11:37 | NUR ---
MD MARTINEZ AT BEDSIDE EVALUATING PATIENT.
[2021-04-09] MEDS ORDERED: PRED20TA5 PO (11:48)
[2021-04-09] MEDS: diphenhydrAMINE 50 MG/ML VIAL IM ONE (11:58)
[2021-04-09] MEDS: fentaNYL citrate 0.05 MG/ML VIAL IM ONE (11:58)
[2021-04-09 12:56] VITALS: BP 130/90
== END 2021-04-09 12:57 | disposition home or self-care (01) ==
LOC: MED 10:11
DX: R07.9 Chest pain, unspecified (principal); T42.8X5A Adverse effect of antiparkinsonism drugs and other central muscle-tone depressants, initial encounter; Z88.0 Allergy status to penicillin; Z88.6 Allergy status to analgesic agent; Z88.1 Allergy status to other antibiotic agents; Z88.5 Allergy status to narcotic agent; Z88.8 Allergy status to other drugs, medicaments and biological substances; Y92.89 Other specified places as the place of occurrence of the external cause
CPT/HCPCS: 96372; 99284; J1200; J3010

== ENCOUNTER 2021-04-30 15:13 | Emergency (ER) | payer OTHER ==
[~2021-04-30] VITALS: Ht 165.1 cm; Wt 80.8 kg
[~2021-04-30 15:13] MED LIST changes: +PRED20TA5 PO
[2021-04-30 15:20] VITALS: BP 137/83
--- NOTE | 2021-04-30 15:20 | NUR ---
PT TO [facility]
--- NOTE | 2021-04-30 16:37 | NUR ---
PER FRONT LOBBY PT HAS AMA
--- NOTE | 2021-04-30 16:37 | NUR ---
PT HAS DECIDED TO LEAVE [facility]. PT HAS REFUSED ANY SERVICES AND REFUSES TO WAIT.
== END 2021-04-30 16:37 | disposition left against medical advice (07) ==
LOC: MED 15:13
DX: Z53.21 Procedure and treatment not carried out due to patient leaving prior to being seen by health care provider (principal)

== ENCOUNTER 2021-05-16 19:41 | Emergency (ER) | payer OTHER ==
[~2021-05-16] VITALS: Ht 165.1 cm; Wt 80.7 kg
[2021-05-16 19:46] VITALS: BP 133/98
--- NOTE | 2021-05-16 19:50 | NUR ---
PT FAUSTO VILLANUEVA. TAKEN TO BED 13
--- NOTE | 2021-05-16 20:00 | NUR ---
25 Y/O FEMALE BIBA FROM HOME C/O ALLERGERIC REACTION WITH TONGUE SWELLING S/P EATING AT [employer] TODAY. PT UNAWARE OF WHAT FOOD CAUSED THE REACTION. PT REPORTS BITING HER TONGUE WHEN IT WAS SWOLLEN AND VOMITING. NO TOUNGUE SWELLING NOTED AT THIS TIME, DENIES NAUSEA. SPO2 100% ON RA. EVEN AND UNLABORED RESPIRATIONS, NO SIGNS OF DISTRESS. PT WAS GIVEN BENEDRYL BY MEDICS. PT ALSO REPORTS 10/10 FULL BODY PAIN AND REPORTS TAKING 8MG DILAUDID AT 3PM TODAY. PMH : SICKLE CELL, LUPUS ALLERGIES:SEE CHART FOR EXTENSIVE ALLERGY HX
--- NOTE | 2021-05-16 20:57 | NUR ---
Dr. Martinez examining patient.
[2021-05-16] MEDS ORDERED: methylPREDNISolone SS 80 MG in WATER STERILE 1 ML IM ONE (21:05)
[2021-05-16] MEDS ORDERED: methylPREDNISolone SS 40 MG/ML VIAL ONE (21:09)
[2021-05-16] MEDS ORDERED: WATER STERILE 10 ML MC ONE (21:09)
[2021-05-16] MEDS ORDERED: EPIN1KIT31 IM (21:49)
[2021-05-16] MEDS ORDERED: PRED20TA5 PO (21:49)
--- NOTE | 2021-05-16 21:57 | NUR ---
Patient discharged with v/s stable. Written and verbal after care instructions ABOUT ANAPHYLACTIC REACTION given and explained. Patient alert, oriented and verbalized understanding of instructions. Ambulatory with steady gait. All questions addressed prior to discharge. ID band removed. Patient advised to follow up with PMD. Rx of EPIPEN AND PREDNISONE given. Patient educated on indication of medication including possible reaction and side effects. Opportunity to ask questions provided and answered.
== END 2021-05-16 21:57 | disposition home or self-care (01) ==
LOC: MED 19:41
DX: T78.00XA Anaphylactic reaction due to unspecified food, initial encounter (principal); Z88.6 Allergy status to analgesic agent; Z88.0 Allergy status to penicillin; Z88.1 Allergy status to other antibiotic agents; Z88.5 Allergy status to narcotic agent; Z88.8 Allergy status to other drugs, medicaments and biological substances; Z79.899 Other long term (current) drug therapy
CPT/HCPCS: 96372; 99283; J2920

== ENCOUNTER 2021-05-18 11:33 | Emergency (ER) | payer OTHER ==
[~2021-05-18] VITALS: Ht 165.1 cm; Wt 80.7 kg
[~2021-05-18 11:33] MED LIST changes: +EPIN1KIT31 IM
--- NOTE | 2021-05-18 11:35 | NUR ---
Patient ambulated from [facility] to bed 02 with steady/even gait.
[2021-05-18 11:37] VITALS: BP 142/99
--- NOTE | 2021-05-18 11:40 | NUR ---
25 y/o F BIBA from home c/o chronic joint pain and body aches s/p eating allergic food at [facility] 2 days ago. Patient seen here and discharged home; states symptoms worsened this morning. Patient states generalized body pain, 10/10, sharp/aching/constant, non-radiating. Reports nausea and vomiting x 4 episodes -hemaemesis. EMS states swelling to face and neck and itchiness to chest +headache. Denies any medications prior to arrival. Denies SOB, fever, chills, chest pain, diarrhea, constipation, blurry vision. SpO2 98% on room air; Lung sounds CTA. Skin warm/dry. Bed locked in lowest position, side rails x 1, call light in reach. PMH: sickle cell, lupus Meds: gabapentin, prednisone, seroquel, xanax, dilaudid, plaquenil Allergies: PCN, Tylenol, ASA, mushrooms, SEE LIST
--- NOTE | 2021-05-18 12:45 | NUR ---
Dr. Hess is evaluating patient at bedside.
[2021-05-18] MEDS ORDERED: HYDROmorphone PFS 2 MG/ML SYR IM ONE ×2 (12:55→15:00)
--- NOTE | 2021-05-18 13:23 | NUR ---
Lab at bedside
--- NOTE | 2021-05-18 13:34 | NUR ---
Unable to obtain blood sample per CPT Winifred; Dr. Hess made aware
--- NOTE | 2021-05-18 13:34 | NUR ---
Patient states + relief to pain, 9/10 at this time.
--- NOTE | 2021-05-18 14:25 | NUR ---
Dr. Hess at bedside for ultrasound guided IV attempt
--- NOTE | 2021-05-18 14:34 | NUR ---
Patient states she does not want to be poked in her feet for blood draw. Patient denying ultrasound guided IV for blood work at this time. Dr. Hess at bedside with patient explaining benefits. Patient states refusal at this time.
--- NOTE | 2021-05-18 15:25 | NUR ---
Anson juice provided per requset. + relief, 8 pain.
[2021-05-18 16:14] VITALS: BP 146/81
--- NOTE | 2021-05-18 16:14 | NUR ---
Patient states + relief to pain; 6/10 at this time. All pt needs met.
== END 2021-05-18 16:20 | disposition home or self-care (01) ==
LOC: MED 11:33
DX: D57.00 Hb-SS disease with crisis, unspecified (principal); Z86.718 Personal history of other venous thrombosis and embolism
CPT/HCPCS: 96372; 99283; J1170

== ENCOUNTER 2021-05-27 08:10 | Emergency (ER) | payer OTHER ==
[~2021-05-27] VITALS: Ht 165.1 cm; Wt 80.7 kg
[2021-05-27 08:14] VITALS: BP 136/100
[2021-05-27] MEDS ORDERED: fentaNYL citrate 0.05 MG/ML VIAL IVP ONE (08:25)
[2021-05-27] MEDS ORDERED: NACL 0.9% 1,000 ML IV ONE (08:25)
[2021-05-27] MEDS ORDERED: ONDANSETRON 4 MG/2 ML VIAL IVP ONE (08:25)
--- NOTE | 2021-05-27 08:29 | NUR ---
Patient wheelchair assisted to bed 12
[2021-05-27] MEDS ORDERED: LORazepam 1 MG TAB PO ONE (08:30)
--- NOTE | 2021-05-27 08:40 | NUR ---
PATIENT TAKEN TO CT VIA GURNEY.
--- NOTE | 2021-05-27 08:54 | NUR ---
PATIENT RETURNED FROM CT, PLACED BACK IN BED 12.
--- NOTE | 2021-05-27 09:00 | NUR ---
25/F BIBA WITH C/O LOWER ABDOMINAL PAIN AND JOINT PAIN. PATIENT STATES SHE WOKE UP THIS MORNING WITH 10/10 SHARP LOWER ABDOMINAL PAIN, NONRADIATING, DENIES N/V/D. PATIENT ALSO STATES SHE HAS HX OF LUPUS AND SICKLE CELL DISEASE, STATING "MY JOINTS HURT WHEN THE WEATHER CHANGES." PATIENT DENIES TAKING ANYTHING AT HOME FOR PAIN PRIOR TO ARRIVAL TO ED. DENIES CP, SOB, FEVER, CHILLS OR URINARY SYMPTOMS.
[2021-05-27] MEDS ORDERED: fentaNYL citrate 0.05 MG/ML VIAL IM ONE (09:25)
[2021-05-27] MEDS ORDERED: diphenhydrAMINE 50 MG/ML VIAL IM ONE (09:25)
--- NOTE | 2021-05-27 09:46 | NUR ---
ULTRASOUND AT BEDSIDE.
--- NOTE | 2021-05-27 10:45 | NUR ---
PATIENT STATING SHE CANNOT PROVIDE URINE AT THIS TIME. DR. ACOSTA MADE AWARE.
--- NOTE | 2021-05-27 11:00 | NUR ---
PATIENT REFUSING TO ALLOW COLLECTION SYSTEMS WORKER TO DRAW LABS FOR THE SECOND TIME. DR. ACOSTA MADE AWARE.
[2021-05-27] MEDS ORDERED: HYDROcodone/APAP 5/325 MG 1 TAB TAB PO ONE (11:30)
[2021-05-27 11:50] VITALS: BP 138/89
--- NOTE | 2021-05-27 11:50 | NUR ---
Patient does not wish to proceed with medical care recommended by DR. ACOSTA. Patient given information related to possible complications, up to and including , which could occur as a result of leaving hospital at this time. Patient verbalizes understanding of risks involved leaving against medical advice. Patient has signed AMA form.
== END 2021-05-27 11:20 | disposition left against medical advice (07) ==
LOC: MED 08:10
DX: R10.30 Lower abdominal pain, unspecified (principal); Z79.899 Other long term (current) drug therapy; Z98.890 Other specified postprocedural states; Z88.0 Allergy status to penicillin; Z88.6 Allergy status to analgesic agent; Z88.1 Allergy status to other antibiotic agents; Z88.5 Allergy status to narcotic agent; Z88.8 Allergy status to other drugs, medicaments and biological substances
CPT/HCPCS: 74176; 76856; 96372; 99285; J1200; J3010; Q0092

== ENCOUNTER 2021-06-04 21:30 | Emergency (ER) | payer OTHER ==
[~2021-06-04] VITALS: Ht 165.1 cm; Wt 81.6 kg
--- NOTE | 2021-06-04 21:30 | NUR ---
BIBA TAKEN TO BED #9
[2021-06-04 21:33] VITALS: BP 131/61
--- NOTE | 2021-06-04 21:33 | NUR ---
25 [address] F [address] [facility] BY EMS WITH C/C OF BODY PAIN 05/19. PT STATES SHE HAS SICKLE CELL DISEASE. +N/V, VOMITTED 4XS TODAY. STATES SHE WAS HERE LAST MONTH FOR SAME REASON AND HAD A BLOOD TRANSFUSION, 2 UNITS. BLOOD SUGAR 100. HX:LUPUS, SICKLE CELL ALLERG: PCN
[2021-06-04] MEDS ORDERED: NACL 0.9% 1,000 ML IV ONE (21:35)
--- NOTE | 2021-06-04 21:40 | NUR ---
XRAY IN PTS ROOM AT 2141.
--- NOTE | 2021-06-04 21:41 | NUR ---
X-Ray at bedside.
--- NOTE | 2021-06-04 21:50 | NUR ---
PT NOT COOPERATING WHILE INSERTING IV @ 5238
--- NOTE | 2021-06-04 22:00 | NUR ---
PT STATED SHE WANTED TO TRY HAVING IV STARTED AGAIN WHEN LAB TRIED TO DRAW BLOOD. DURING IV INSERTION PT WAS NOT ALLOWING FOR ARM TO BE STRAIGHTENED OUT FOR SAFE INSERTION OF IV. BEGAN YELLING LOUDLY.
--- NOTE | 2021-06-04 22:01 | NUR ---
Dr. Anderson examining patient.
--- NOTE | 2021-06-04 22:02 | NUR ---
X-Ray at bedside.
--- NOTE | 2021-06-04 22:36 | NUR ---
[place]orro mejias in [facility] - 06/04/21 at 2238 by [facility] BLOOD DRAWL AND IV RETRIED
[2021-06-04] MEDS ORDERED: diphenhydrAMINE 50 MG/ML VIAL IM ONE (22:55)
[2021-06-04] MEDS ORDERED: MORPHINE SULFATE 2 MG/ML SYR IM ONE (22:55)
[2021-06-04] MEDS ORDERED: MORPHINE SULFATE 2 MG/ML SYR ONE (22:58)
--- NOTE | 2021-06-05 00:05 | NUR ---
[place] ATTEMPTED TO DRAW LABS x2 AND WAS UNSUCCESSFUL. DR. GARRETT MADE AWARE.
--- NOTE | 2021-06-05 00:13 | NUR ---
PT REPORTS MINIMAL PAIN RELIEF FROM MORPHINE 2MG IM. THIS RN WITH DR. GARRETT S/W PT REGARDING PAIN MANAGEMENT. PT AGREEABLE TO ADDITIONAL PAIN MEDICATION GIVEN IM AND WOULD LIKE TO BE DISCHARGED.
[2021-06-05] MEDS ORDERED: MORPHINE SULFATE 2 MG/ML SYR IM ONE (00:20)
--- NOTE | 2021-06-05 00:45 | NUR ---
PT AMBULATES TO THE BATHROOM WITHOUT ASSISTANCE.
[2021-06-05 00:52] VITALS: BP 131/61
== END 2021-06-05 00:52 | disposition home or self-care (01) ==
LOC: MED 21:30
DX: G89.29 Other chronic pain (principal); M79.10 Myalgia, unspecified site; R06.02 Shortness of breath; R05.9 Cough, unspecified; Z88.0 Allergy status to penicillin; Z88.6 Allergy status to analgesic agent; Z88.8 Allergy status to other drugs, medicaments and biological substances; Z88.1 Allergy status to other antibiotic agents; Z88.5 Allergy status to narcotic agent; Z79.899 Other long term (current) drug therapy
CPT/HCPCS: 71045; 96372; 99284; J1200; J2270; Q0092

== ENCOUNTER 2021-07-27 17:46 | Emergency (ER) | payer OTHER ==
[~2021-07-27] VITALS: Ht 157.5 cm; Wt 65.8 kg
[2021-07-27 17:47] VITALS: BP 141/80
--- NOTE | 2021-07-27 17:51 | NUR ---
BIBA to bed 03
[2021-07-27] MEDS ORDERED: FAMOTIDINE 20 MG/2 ML VIAL IVP ONE (17:55)
[2021-07-27] MEDS ORDERED: DEXAMETHASONE 10 MG/ML VIAL IVP ONE (17:55)
--- NOTE | 2021-07-27 17:55 | NUR ---
pt bib amr run c/o allergic reaction. per medics noted audible wheezing on scene, medicated with 0.3 im epi, 50 mg benadryl im and duoneb en route. pt states relief. gcs 15.
--- NOTE | 2021-07-27 18:03 | NUR ---
EMT at bedside for EKG
--- NOTE | 2021-07-27 18:06 | NUR ---
Dr. Gavin made aware of patient hard stick; received verbal order to change route for Pepcid and Decadron from IVP to IM.
[2021-07-27] MEDS ORDERED: FAMOTIDINE 20 MG TAB PO ONE (18:10)
[2021-07-27] MEDS ORDERED: DEXAMETHASONE 10 MG/ML VIAL IM ONE (18:10)
--- NOTE | 2021-07-27 18:33 | NUR ---
Wingo provided per pt request
--- NOTE | 2021-07-27 19:27 | NUR ---
Report and transfer of care endorsed to ONELIA Yepez
[2021-07-27] MEDS ORDERED: HYDROmorphone 2 MG TAB PO ONE (19:40)
[2021-07-27] MEDS ORDERED: oxyCODONE/APAP 5/325 MG 1 TAB TAB PO ONE (19:40)
--- NOTE | 2021-07-27 20:00 | NUR ---
PT C/O INCREASED TONGUE SWELLING ALTHOUGH NONE NOTED BY THIS RN OR PA WHO IS AT BEDSIDE, MEDICATED WITH BENADRYL. PT NOTED TO BE DROOLING. PROVIDED REASSURANCE. NO RESP DISTRESS NOTED. SAT 100% ON RA LUNGS CBTA TO AUSCULTATION.
[2021-07-27] MEDS ORDERED: diphenhydrAMINE 50 MG/ML VIAL IM ONE (20:05)
--- NOTE | 2021-07-27 20:30 | NUR ---
PT ABLE TO SPEAK IN FULL SENTENCES NAD OR RESP DISTRESS NOTED. NO LONGER DROOLING INDICATES SYMPTOMS RESOLVED/IMPROVED.
[2021-07-27] MEDS ORDERED: EPIN1KIT31 IM (21:41)
--- NOTE | 2021-07-27 22:03 | NUR ---
D/C HOME ACI AND RX
--- NOTE | 2021-07-27 22:04 | NUR ---
Patient discharged with v/s stable. Written and verbal after care instructions given and explained. Patient alert, oriented and verbalized understanding of instructions. Ambulatory with steady gait. All questions addressed prior to discharge. ID band removed. Patient advised to follow up with PMD. Rx of EPI PEN given. Patient educated on indication of medication including possible reaction and side effects. Opportunity to ask questions provided and answered.
[2021-07-27 22:11] VITALS: BP 136/84
== END 2021-07-27 22:01 | disposition home or self-care (01) ==
LOC: MED 17:46
DX: T78.1XXA Other adverse food reactions, not elsewhere classified, initial encounter (principal); J45.909 Unspecified asthma, uncomplicated; D57.1 Sickle-cell disease without crisis; Z88.8 Allergy status to other drugs, medicaments and biological substances; Z88.1 Allergy status to other antibiotic agents; Z79.899 Other long term (current) drug therapy; Z88.0 Allergy status to penicillin; X58.XXXA Exposure to other specified factors, initial encounter
CPT/HCPCS: 71045; 93005; 96372; 99284; J1100; J1200; J3490; Q0092; 99285

== ENCOUNTER 2021-07-31 09:12 | Emergency (ER) | payer OTHER ==
[~2021-07-31] VITALS: Ht 165.1 cm; Wt 77.1 kg
--- NOTE | 2021-07-31 09:12 | NUR ---
BIBA to bed 09
--- NOTE | 2021-07-31 09:12 | NUR ---
Dr. Musa is evaluating pt on [facility]
[2021-07-31 09:15] VITALS: BP 125/82
--- NOTE | 2021-07-31 09:15 | NUR ---
25 y/o F BIBA from home c/o generalized body pain x 2 days with nausea and vomiting 5 episodes. Patient reports 10/10, sharp/constant whole body pain. States Dilaudid 8mg and Zofran PO prior to arrival however pt vomited. 10/10 pain; denies fever/chills, SOB, chest pain. Pt placed onto cardiac nurse; RR 17, SpO2 100% on room air, HR 113. Bed locked in lowest position, side rails x 1. PMH: sickle cell disease, lupus A: PCN, acetaminophen, ASA, tramadol, toradol, morphine Meds: Dilaudid, Zofran
[2021-07-31] MEDS ORDERED: diphenhydrAMINE 50 MG/ML VIAL IM ONE (09:20)
[2021-07-31] MEDS ORDERED: METOCLOPRAMIDE 10 MG/2 ML INJ VIAL IM ONE (09:20)
[2021-07-31] MEDS ORDERED: HYDROmorphone PFS 2 MG/ML SYR IM ONE ×3 (09:20→13:10)
--- NOTE | 2021-07-31 09:30 | NUR ---
EMT at bedside for EKG
--- NOTE | 2021-07-31 09:42 | NUR ---
Lab at bedside
--- NOTE | 2021-07-31 10:00 | NUR ---
Dr. Musa at bedside with Ultrasound
--- NOTE | 2021-07-31 11:03 | NUR ---
Verbal order received from Dr. Musa for Dilaudid 1mg IM.
--- NOTE | 2021-07-31 11:15 | NUR ---
Ultasound guided IV unsuccessful at this time.
--- NOTE | 2021-07-31 11:20 | NUR ---
Warm blanket provided + 3 orange juices.
[2021-07-31 11:27] VITALS: BP 130/82
--- NOTE | 2021-07-31 11:29 | NUR ---
Pt reports + relief to pain. 8/10 denies nausea. All pt needs met.
--- NOTE | 2021-07-31 12:20 | NUR ---
Pt with urinary incontinence. Gown, linens, and blankets changed. Pt ambulated to restroom at this time.
--- NOTE | 2021-07-31 12:24 | NUR ---
Pt returned from restroom and back onto director cardiac. Bed locked in lowest position, side rails x 2.
--- NOTE | 2021-07-31 12:25 | NUR ---
Pt reports pain remains 10/[address] Musa made aware
--- NOTE | 2021-07-31 12:31 | NUR ---
RASHIDA Hung is evaluating patient at bedside for Ultrasound-guided IV
--- NOTE | 2021-07-31 12:58 | NUR ---
Betty handed to CPT Winifred at ER bedside
--- NOTE | 2021-07-31 12:59 | NUR ---
PICC line nurse called, no answer, voicemail left, will follow up.
[2021-07-31] MEDS ORDERED: GABA300C PO (13:02)
[2021-07-31] MEDS ORDERED: QUET300T1 PO (13:02)
[2021-07-31] MEDS ORDERED: HYDR2TAB6 PO (13:02)
[2021-07-31] MEDS ORDERED: HYDR200T5 PO (13:02)
[2021-07-31] MEDS ORDERED: ONDA4TAB PO (13:02)
[2021-07-31] MEDS ORDERED: CEL250 PO (13:02)
[2021-07-31] MEDS ORDERED: ALPR2TAB1 PO (13:02)
--- NOTE | 2021-07-31 13:02 | NUR ---
No wounds noted to pt.
--- NOTE | 2021-07-31 13:26 | NUR ---
Patient does not wish to proceed with medical care recommended by DR HECTOR. Patient given information related to possible complications, up to and including , which could occur as a result of leaving hospital at this time. Patient verbalizes understanding of risks involved leaving against medical advice. Patient has signed AMA form.
--- NOTE | 2021-07-31 13:26 | NUR ---
Note randell in [facility] - 07/31/21 at 1328 by [email or web address] Patient does not wish to proceed with medical care recommended by TAWNY. Patient given information related to possible complications, up to and including , which could occur as a result of leaving hospital at this time. Patient verbalizes understanding of risks involved leaving against medical advice. Patient has signed AMA form.
== END 2021-07-31 13:26 | disposition left against medical advice (07) ==
LOC: MED 09:12
DX: D57.1 Sickle-cell disease without crisis (principal); M32.9 Systemic lupus erythematosus, unspecified; R10.9 Unspecified abdominal pain; R11.2 Nausea with vomiting, unspecified; J45.909 Unspecified asthma, uncomplicated; Z20.822 Contact with and (suspected) exposure to COVID-19
CPT/HCPCS: 71045; 81002; 81025; 87426; 93005; 96372; 99285; J1170; J1200; J2765; Q0092

== ENCOUNTER 2021-08-14 09:51 | Emergency (ER) | payer OTHER ==
[~2021-08-14] VITALS: Ht 162.6 cm; Wt 69.9 kg
[~2021-08-14 09:51] MED LIST changes: +ALPR2TAB1 PO; +CEL250 PO; +GABA300C PO; +ONDA4TAB PO
[2021-08-14 11:04] VITALS: BP 143/91
--- NOTE | 2021-08-14 11:30 | NUR ---
PATIENT LEFT WITHOUT BEING SEEN BY DR. HARDY. NO FURTHER CARE PROVIDED FOR PATIENT.
== END 2021-08-14 11:30 | disposition left against medical advice (07) ==
LOC: MED 09:51
DX: M79.10 Myalgia, unspecified site (principal); Z53.21 Procedure and treatment not carried out due to patient leaving prior to being seen by health care provider

== ENCOUNTER 2021-08-30 05:57 | Emergency (ER) | payer OTHER ==
[~2021-08-30] VITALS: Ht 175.3 cm; Wt 81.6 kg
[2021-08-30 06:06] VITALS: BP 127/76
[2021-08-30 06:15] VITALS: BP 127/76
--- NOTE | 2021-08-30 06:15 | NUR ---
seen and examined by JOSEE
[2021-08-30] MEDS ORDERED: diphenhydrAMINE 50 MG/ML VIAL IM ONE (06:20)
[2021-08-30] MEDS ORDERED: MORPHINE SULFATE 4 MG/ML SYR IM ONE (06:20)
--- NOTE | 2021-08-30 06:20 | NUR ---
medicated as per ERMDS ORDER, TOLERATED WELL.
--- NOTE | 2021-08-30 07:31 | NUR ---
pt refused lab draw. requesting ultrasound guided iv.
--- NOTE | 2021-08-30 07:37 | NUR ---
pt states she will allow new phleb to draw. pt states "take it out", pt is now refusing phleb at this time. karyna notified.
--- NOTE | 2021-08-30 10:03 | NUR ---
CONTACTED PATIENT IN LOBBY - NO ANSWER.
--- NOTE | 2021-08-30 10:08 | NUR ---
ATTEMPTED TO CONTACT PT IN LOBBY/OUTSIDE ER LOBBY, NO ANSWER 2ND ATTEMPT.
== END 2021-08-30 10:03 | disposition home or self-care (01) ==
LOC: MED 05:57
DX: D57.1 Sickle-cell disease without crisis (principal); J45.909 Unspecified asthma, uncomplicated; Z79.899 Other long term (current) drug therapy; Z88.0 Allergy status to penicillin; Z88.6 Allergy status to analgesic agent; Z88.8 Allergy status to other drugs, medicaments and biological substances; Z88.5 Allergy status to narcotic agent; Z88.1 Allergy status to other antibiotic agents
CPT/HCPCS: 71045; 81002; 81025; 96372; 99284; J1200; J2270